=== PATIENT | female | born 1935 | race Caucasian/White ===

== ENCOUNTER 2017-08-16 02:10 | Inpatient (IN) ==
[2017-08-16 04:16] LABS: Basophils # (Auto) 0 K/mcL (0.0-0.3); Basophils % (Auto) 0.1 % (0.0-2.0); Eosinophils # (Auto) 0.4 K/mcL (0.0-0.7); Eosinophils % (Auto) 3.1 % (0.0-7.0); Granulocytes % (Auto) 87.6 % (38.0-78.0); Lymphocytes # (Auto) 0.9 K/mcL (1.5-4.8); Lymphocytes % (Auto) 6.7 % (15.5-49.0); Mean Cell Volume 88.3 fL (80.0-100.0); Mean Corpuscular HGB Conc 32.3 g/dL (31.0-36.0); Mean Corpuscular Hemoglobin 28.5 pg (26.0-34.0); Monocytes # (Auto) 0.3 K/mcL (0.1-0.9); Monocytes % (Auto) 2.5 % (1.0-12.0); Platelet Count 261 K/mcL (140-440); Red Cell Distribution Width 16.3 % (11.5-14.5)
--- NOTE | 2017-08-16 04:25 | Emergency Department Note ---
Altered Mental Status HPI - General Chief Complaint: Altered Mental Status Stated Complaint: Altered LOC Time Seen by Provider: 08/16/17 04:22 Mode of arrival: ambulatory - History of Present Illness HPI Narrative: This 81-year-old female comes in via emergency medical systems after they were summoned by patient's son, Andrés, who found that she was having difficulties being able to walk, some incoherent speech and difficulty speaking. These things seem to start around 7 or 8 PM. She could not get onto her scooter were normally she can drive around. He has been worried that she has taken extra or too much of oxycodone or tramadol. He reports that she often takes the maximum dose but is pretty careful with her medications. He helps set out her medications but does not control them. In route she was given Narcan with no specific response. REVIEW OF SYSTEMS: GENERAL: NO FEVERS. SHE OCCASIONALLY FEELS LIKE SHE IS COLD. NO SWEATS. CV: NO CHEST PAIN OR PALPITATIONS. PULMONARY: No shortness of breath. GI: No abdominal pain but does have some nausea before this started. : No dysuria. MSK: Has chronic long-term joint pains from osteoarthritis in her knees and her hips. Neuro: Headaches today. Has had some bitemporal headaches for which is being scheduled a CT of head (as outpatient previously arranged or planned). Psych: Has some anxiety but no depression. - Related Data Home Medications Medication Instructions Recorded Confirmed Bifidobacterium infantis 4 mg 4 mg PO QDAY cap 02/26/15 08/16/17 capsule acetaminophen 500 mg tablet See Dose Instructions PO BID PRN 02/26/15 03/27/15 tab allopurinol 100 mg tablet 100 mg PO QDAY tab 02/26/15 08/16/17 aspirin 325 mg tablet 325 mg PO QDAY tab 02/26/15 08/16/17 atorvastatin 20 mg tablet 20 mg PO QDAY tab 02/26/15 08/16/17 calcium carbonate 500 mg calcium See Dose Instructions PO QDAY 02/26/15 02/26/15 (1,250 mg) tablet cholecalciferol (vitamin D3) 2,000 2,000 unit PO QDAY tab 02/26/15 08/16/17 unit tablet cyanocobalamin (vit B-12) 2,500 2,500 mcg SUBLINGUAL QDAY tab 02/26/15 08/16/17 mcg sublingual tablet glucosamine 750 [id number] See Dose Instructions PO QDAY 02/26/15 no1 644 mg-C 30 mg-gema 1 mg tablet levothyroxine 100 mcg tablet 100 mcg PO QDAY tab 02/26/15 08/16/17 lisinopril 20 mg tablet 20 mg PO QDAY tab 02/26/15 08/16/17 magnesium See Dose Instructions PO QDAY 02/26/15 03/27/15 metformin 500 mg tablet 500 mg PO QDAY tab 02/26/15 08/16/17 nifedipine ER 60 mg 60 mg PO QDAY tab 02/26/15 08/16/17 tablet,extended release 24 hr omega-3 fatty acids-fish oil 684 See Dose Instructions PO QDAY 02/26/15 03/27/15 mg-1,200 mg capsule,delayed release oxycodone-acetaminophen 5 mg-325 See Dose Instructions PO Q4H tab 02/26/15 mg tablet timolol ophthalmic OPHTHALMIC QDAY 02/26/15 03/27/15 calcium carbonate 500 mg(1,250 2 tab PO .qd tab 03/27/15 08/16/17 mg)-vitamin D3 400 unit chewable tablet fexofenadine-pseudoephedrine ER 1 tab PO QAM tab 03/27/15 08/16/17 180 mg-240 mg tablet,ext.release 24 hr glucosamine-chondroitin 250 mg-200 1 tab-cap PO QDAY tab 03/27/15 08/16/17 mg tablet polyethylene glycol 3350 17 17 g PO QDAY each 03/27/15 08/16/17 gram/dose oral powder saliva substitute combo no.9 15 ml MUCOUS MEM TID-QID PRN ml 03/27/15 08/16/17 mouthwash Allergies Allergy/AdvReac Type Severity Reaction Status Date / Time ampicillin Allergy Unknown Unknown Verified 03/27/15 08:29 iodine Allergy Unknown Unknown Verified 03/27/15 08:29 levothyroxine sodium Allergy Unknown Unknown Verified 03/27/15 08:29 [From Synthroid] phenazopyridine Allergy Unknown Rash Verified 03/27/15 08:29 [From Pyridium] seasonal Allergy Unknown Unknown Uncoded 03/27/15 08:29 Past Medical History - Past Medical History PMFSH Narrative: From old chart note: Microalbuminuria (Chronic) Vitamin B 12 deficiency (Chronic) Pain in joint involving lower leg (Chronic) Overactive bladder (Chronic 10/07/13) Osteoporosis (Chronic) Osteoarthritis (Chronic) Obesity (Chronic) Hypothyroidism, acquired (Chronic) Hyperlipidemia (Chronic) Hypertensive chronic kidney disease (Chronic) Gout (Chronic) Goiter (Chronic) Glaucoma (Chronic) Dysmetabolic syndrome X (Chronic) Diabetes mellitus, type II (Chronic) Controlled diabetes mellitus with renal manifestations (Chronic) Degenerative joint disease (Chronic) Chronic kidney disease, stage III (moderate) (Chronic) Bladder spasm (Chronic) Bladder pain (Chronic) Basal cell carcinoma (Chronic) Arthritis (Chronic) Aortic aneurysm (Chronic) Medical history: Reports: arthritis (osteo-), hypertension, hypothyroidism, other (Chronic narcotics. Gout.) Psychiatric history: Reports: anxiety. Denies: depression - Social History smoking status: Former smoker Physical Exam Limitations: altered mental status General appearance: in no apparent distress, other (limited communications that can be understood. Strong efforts on her part for not being disturbed, wanting certain positions in bed, etc.) Head: atraumatic, normocephalic Eye: Present: PERRL, EOMI ENT: normal oropharynx, mucous membranes dry (mildly.) Neck: Present: trachea midline. Absent: lymphadenopathy, thyromegaly Respiratory: Present: normal lung sounds bilaterally. Absent: respiratory distress, wheezes, stridor, accessory muscle use, prolonged expiratory phase Cardiovascular: Present: regular rate, normal rhythm. Absent: systolic murmur, diastolic murmur Abdominal: Present: soft. Absent: distention, tenderness, guarding, rebound, rigidity, organomegaly, mass Extremities: Absent: pedal edema, pretibial edema, calf tenderness Neurological: Present: alert (when awakened but difficult to assess due to poor verbal interactive communication.) Psychiatric: Present: anxious Skin: Present: warm, dry Course Vital Signs Temperature 98.1 F 08/16/17 02:11 Pulse Rate 85 08/16/17 02:11 Respiratory Rate 18 08/16/17 02:11 Blood Pressure 195/89 08/16/17 02:11 Pulse Oximetry (%) 97 08/16/17 02:11 Temperature 98.1 F 08/16/17 02:11 Pulse Rate 73 08/16/17 06:40 Respiratory Rate 18 08/16/17 02:11 Blood Pressure 163/88 08/16/17 06:31 Pulse Oximetry (%) 89 L 08/16/17 06:40 Altered Mental Status - MDM Narrative Medical decision making narrative: 245 AM Speech does seem slurred and difficult to understand. CT scan of the head was done 3:[address] was negative. Labs pending. 5:30 AM Labs were unremarkable except similar CRF for age with Cr of 1.2. WBC elevated at 13.8 but crp and lactate normal. Sleeping peacefully. When awakened, remains unable to communicate well. 7:30 AM Her situation discussed with warehouse record clerk and hospitalist, who kindly agrees to accept this patient based on rather significant and severe status changes in her mental interaction, communication, capacity to help herself, ability to be mobile, etc. She will be admitted to telemetry observation. Chest x-ray had not previously been done and will be ordered. Blood cultures were not previously obtained and are not further entertained and that she did not have a febrile illness and her inflammation markers were normal. UA had not yet been obtained. Therefore urine screen of toxin/drugs of abuse is incomplete. We will give her some fluid. Pending transfer to floor under telemetry observation. - Lab Data Lab results reviewed: Yes I reviewed the patient's lab results. Result diagrams: 08/16/17 03:20 08/16/17 03:20 Lab Results 08/16/17 08/16/17 08/16/17 Range/Units 03:20 03:20 03:20 WBC 13.8 H (4.5-11.0) K/mcL RBC 4.60 (4.00-5.20) M/mcL Hgb 13.1 (12.0-15.0) g/dL Hct 40.6 (36.0-48.0) % MCV 88.3 (80.0-100.0) fL MCH 28.5 (26.0-34.0) pg MCHC 32.3 (31.0-36.0) g/dL RDW 16.3 H (11.5-14.5) % Plt Count 261 (140-440) K/mcL MPV 10.3 (7.4-10.4) fL Gran % 87.6 H (38.0-78.0) % Lymph % (Auto) 6.7 L (15.5-49.0) % [place] % (Auto) 2.5 (1.0-12.0) % Eos % (Auto) 3.1 (0.0-7.0) % Baso % (Auto) 0.1 (0.0-2.0) % Gran # 12.1 H (1.8-8.0) K/mcL Lymph # (Auto) 0.9 L (1.5-4.8) K/mcL [place] # (Auto) 0.3 (0.1-0.9) K/mcL Eos # (Auto) 0.4 (0.0-0.7) K/mcL Baso # (Auto) 0 (0.0-0.3) K/mcL VBG Lactic Acid (0.5-2.2) mmol/L Sodium 140 (133-145) mmol/L Potassium 4.0 (3.3-5.1) mmol/L Chloride 100 (96-108) mmol/L Carbon Dioxide 27 (22-30) mmol/L Anion Gap 13.0 (8-16) BUN 23 (8-23) mg/dl Creatinine 1.2 H (0.6-1.1) mg/dl GFR Calculation 42 Glucose 154 H (70-105) mg/dL Calcium 10.2 (8.6-10.4) mg/dl Total Bilirubin 0.3 (0.0-1.0) mg/dL AST 21 (0-37) U/l ALT 24 (0-40) U/l Alkaline Phosphatase 93 (39-117) U/L Troponin T < 0.01 (0-0.03) ng/ml C-Reactive Protein 0.8 (0.0-0.8) mg/dl Total Protein 8.0 (5.9-8.4) gm/dL Albumin 4.1 (3.2-5.2) gm/dL Globulin 3.9 H (2.2-3.7) gm/dL Albumin/Globulin Ratio 1.1 (1.0-2.3) 08/16/17 Range/Units 05:26 WBC (4.5-11.0) K/mcL RBC (4.00-5.20) M/mcL Hgb (12.0-15.0) g/dL Hct (36.0-48.0) % MCV (80.0-100.0) fL MCH (26.0-34.0) pg MCHC (31.0-36.0) g/dL RDW (11.5-14.5) % Plt Count (140-440) K/mcL MPV (7.4-10.4) fL Gran % (38.0-78.0) % Lymph % (Auto) (15.5-49.0) % [place] % (Auto) (1.0-12.0) % Eos % (Auto) (0.0-7.0) % Baso % (Auto) (0.0-2.0) % Gran # (1.8-8.0) K/mcL Lymph # (Auto) (1.5-4.8) K/mcL [place] # (Auto) (0.1-0.9) K/mcL Eos # (Auto) (0.0-0.7) K/mcL Baso # (Auto) (0.0-0.3) K/mcL VBG Lactic Acid 1.6 (0.5-2.2) mmol/L Sodium (133-145) mmol/L Potassium (3.3-5.1) mmol/L Chloride (96-108) mmol/L Carbon Dioxide (22-30) mmol/L Anion Gap (8-16) BUN (8-23) mg/dl Creatinine (0.6-1.1) mg/dl GFR Calculation Glucose (70-105) mg/dL Calcium (8.6-10.4) mg/dl Total Bilirubin (0.0-1.0) mg/dL AST (0-37) U/l ALT (0-40) U/l Alkaline Phosphatase (39-117) U/L Troponin T (0-0.03) ng/ml C-Reactive Protein (0.0-0.8) mg/dl Total Protein (5.9-8.4) gm/dL Albumin (3.2-5.2) gm/dL Globulin (2.2-3.7) gm/dL Albumin/Globulin Ratio (1.0-2.3) - Radiology Data Radiology results reviewed: Yes I reviewed the patient's radiology results. Disposition Pt seen by [facility]/PA only: No Clinical Impression: Garbled speech, Confusion, Incoordination, Weakness Altered mental status, unspecified Qualifiers: Altered mental status type: unspecified Qualified Code(s): R41.82 - Altered mental status, unspecified Leukocytosis (leucocytosis) Qualifiers: Leukocytosis type: leukemoid reaction Qualified Code(s): D72.823 - Leukemoid reaction CRF (chronic renal failure) Qualifiers: Chronic kidney disease stage: stage 3 (moderate) Qualified Code(s): N18.3 - Chronic kidney disease, stage 3 (moderate) Referrals: Sheyla Tabor MD [Primary Care Provider] -
[2017-08-16 04:36] LABS: ALT/SGPT 24 U/l (0-40); Albumin 4.1 gm/dL (3.2-5.2); Albumin/Globulin Ratio 1.1 (1.0-2.3); Alkaline Phosphatase 93 U/L (39-117); Blood Urea Nitrogen 23 mg/dl (8-23); C-Reactive Protein 0.8 mg/dl (0.0-0.8)
--- NOTE | 2017-08-16 05:12 | Cat Scan Report ---
CLINICAL INFORMATION: Dysarthria COMPARISON: 05/03/[address] TECHNIQUE: 2.5 mm helical slices were obtained in the skull base to vertex. Following reconstruction, axial reformatted images were reviewed at bone and parenchymal windows. The exam was performed using radiation dose optimization techniques including, but not limited to, automated exposure control, adjustment of the mA and/or kV according to patient size and use of iterative reconstruction technique. FINDINGS: The ventricles, sulci, fissures, and cisterns are symmetrically enlarged compatible with moderate age-related atrophy. This is unchanged. There is no subdural hemorrhage or other extra-axial fluid collection appreciated. Extensive chronic ischemic changes seen in the cerebral white matter are unchanged and age-related. No evidence of edema, mass effect, hemorrhage or other acute finding. Bone windows show no osseous abnormality IMPRESSION: Moderate atrophy and extensive chronic ischemic changes in the cerebral white matter compatible with age. No change from 05/03/2016.. Interpreted and Authenticated by: Fly Rivera 08/16/17
--- NOTE | 2017-08-16 08:34 | XRay Report ---
CLINICAL INFORMATION: Shortness of breath COMPARISON: None. FINDINGS: Film taken with portable technique, right rotation and suboptimal inspiration accentuates the cardiomediastinal silhouette. The heart is, at least, mildly enlarged. Pulmonary vessels are moderately distended and there is peribronchial vascular edema throughout both lungs. No infiltrates or effusions IMPRESSION: Moderate CHF Interpreted and Authenticated by: Fly Rivera 08/16/17
[2017-08-16 09:07] LABS: Amphetamine Screen,Urine NONE DETECTED (NONDETECTED); Benzodiazepines Screen,Urine NONE DETECTED (NONDETECTED); Cocaine Screen,Urine NONE DETECTED (NONDETECTED); Opiate Screen,Urine NONE DETECTED (NONDETECTED); Oxycodone, Urine Screen SUSPECT POSITIVE (NONDETECTED)
[2017-08-16 09:08] LABS: Appearance,Urine CLEAR; Bilirubin,Urine NEG (NEG); Color,Urine YELLOW; Glucose,Urine (UA) NEGATIVE (NEG); Leukocyte Esterase,Urine NEG /uL (NEG); Protein,Urine >=500 mg/dL (NEG); Specific Gravity,Urine 1.014 (1.000-1.035); Urine Blood NEG mg/dL (<0.03); Urobilinogen,Urine NEG (NEG)
[2017-08-16 09:19] LABS: Bacteria,Urine 0 /hpf (0); Urine Amorphous Crystals FEW /hpf (0); Urine Hyaline Cast < 1 /lpf (0-2); Urine RBC 4 /hpf (0-1); Urine Squamous Epithelial Cell 2 /hpf (0-4); Urine WBC 2 /hpf (0-4)
--- NOTE | 2017-08-16 10:14 | Internal Med History&Physical ---
Medical - H&P: HPI Patient information: Note initiated : 08/16/17 at 10:10 am Service Date, if different from initiated Date: [] Patient: Amada Herron 81 y/o F admitted on for Altered LOC. Chief Complaint: Altered mental status History of present illness: The patient's 84-year-old female with a history of osteoarthritis, hypothyroidism, type 2 diabetes mellitus, hypertension who presents today from home via EMS with changes in mental status. History is obtained in speaking with Dr. Machado from the emergency department, and reviewing old medical records.. The patient's unable to provide any history. Apparently at baseline the patient is mostly nonambulatory, it appears due to osteoarthritis and morbid obesity, but is able to transfer into a power scooter , and functions well at home where she lives with her son who is a caregiver. Proximally 7:00-8:00 PM last night, her son noted that her speech became incoherent, she was babbling, having difficulty speaking and with garbled words at time. It is unclear if this was a word finding problem or an articulation problem. She also became much more weak, was unable to transfer to her scooter. Her son was concerned that she may have consumed extra dose of her opioid pain medication. He continued to monitor her. She did not improve, she presents to the emergency department early this morning via EMS for altered mental status. When she arrived she is a lethargic , initially poorly responsive. She received Narcan en route via EMS with no significant change. She was able to wake time and interactive with questions, at other times not so much, with a waxing and waning attention in mental status. She spent most of the overnight in the ED sleeping. She would arouse and respond somewhat, but was not back to her usual status. Laboratory evaluation was notable for white count of 13.8. She has stable renal function and creatinine 1.2 (CKD stage III). Chest x-ray showed evidence of volume overload/congestive heart failure. Urinalysis with proteinuria and ketonuria but no evidence of urinary tract infection. Head CT was with chronic white matter changes, nothing acute. I was contacted to hospitalize the patient for further evaluation. During my examination, the patient felt warm, sound to have a temperature of 100.8, having been normal actually one hour previously. Patient is being hospitalized for further evaluation of encephalopathy, suspected occult infection.she is attempting to reply at times, but does not appear to track with conversations. She does not meaningfully follow commands. ROS unobtainable: due to mental status Medical - H&P: PMH Medical history: Chronic kidney disease, stage III (moderate) Microalbuminuria Hypothyroidism, acquired Hyperlipidemia Hypertension Diabetes mellitus, type II Vitamin B 12 deficiency Overactive bladder Osteoporosis Osteoarthritis Obesity Gout Goiter Glaucoma Dysmetabolic syndrome X Basal cell carcinoma Aortic aneurysm Surgical history: History of tonsillectomy History of thyroidectomy History of skin cancer History of hysterectomy History of cholecystectomy History of abdominal surgery Pertinent family history: Father: Alcohol abuse Brother: Alcohol abuse Brother: Chronic Kidney Disease Mother: Essential hypertension, Malignant Melanoma of Skin, Osteoarthritis Social history: The patient lives with her son. Apparently does not smoke. Unknown whether she consumes alcohol regularly. Medical - H&P: Meds Home Medications Medication Instructions Recorded Confirmed Type acetaminophen 500 mg tablet See Dose Instructions PO BID PRN 02/26/15 03/27/15 History tab allopurinol 100 mg tablet 100 mg PO QDAY tab 02/26/15 08/16/17 History aspirin 325 mg tablet 325 mg PO QDAY tab 02/26/15 08/16/17 History calcium carbonate 500 mg calcium See Dose Instructions PO QDAY 02/26/15 History (1,250 mg) tablet cholecalciferol (vitamin D3) 2,000 2,000 unit PO QDAY tab 02/26/15 08/16/17 History unit tablet cyanocobalamin (vit B-12) 2,500 2,500 mcg SUBLINGUAL QDAY tab 02/26/15 History mcg sublingual tablet levothyroxine 100 mcg tablet 100 mcg PO QDAY tab 02/26/15 08/16/17 History lisinopril 20 mg tablet 20 mg PO QDAY tab 02/26/15 08/16/17 History metformin 500 mg tablet 500 mg PO QDAY tab 02/26/15 08/16/17 History nifedipine ER 60 mg 60 mg PO QDAY tab 02/26/15 08/16/17 History tablet,extended release 24 hr omega-3 fatty acids-fish oil 684 See Dose Instructions PO QDAY 02/26/15 History mg-1,200 mg capsule,delayed release oxycodone-acetaminophen 5 mg-325 See Dose Instructions PO Q4H tab 02/26/15 History mg tablet polyethylene glycol 3350 17 17 g PO QDAY each 03/27/15 08/16/17 History gram/dose oral powder Sertraline HCl [Zoloft] 50 mg PO DAILY 08/16/17 08/16/17 History traMADol HCL [Ultram] 50 - 100 mg PO Q4H 08/16/17 08/16/17 History Allergies Allergy/AdvReac Type Severity Reaction Status Date / Time ampicillin Allergy Unknown Unknown Verified 03/27/15 08:29 iodine Allergy Unknown Unknown Verified 03/27/15 08:29 levothyroxine sodium Allergy Unknown Unknown Verified 03/27/15 08:29 [From Synthroid] phenazopyridine Allergy Unknown Rash Verified 03/27/15 08: [From Pyridium] seasonal Allergy Unknown Unknown Uncoded 03/27/15 08:29 Medical - H&P: Exam - Constitutional Vitals: Temp Pulse Resp BP Pulse Ox 100.8 F H 80 18 193/71 89 L 08/16/17 09:30 08/16/17 07:47 08/16/17 02:11 08/16/17 09:01 08/16/17 07:47 Exam: General: Ill appearing, laying in a gurney, inattentive to the environment or interviewer HEENT: Normocephalic. Resists opening eyes for pupil exam. Sclera have no icterus. Conjunctiva appear clear. Oropharyngeal exam difficult, patient does not wish to open her mouth, dry mucous membranes are noted. No obvious lesions. Neck: Supple, no inches meds. Thyroid not palpable. Chest: Rales on the right greater than left base (lying on her side, right is dependent). Respirations are unlabored. Cardiovascular: Regular rate and rhythm with a 2/6 systolic murmur in the precordium. Carotid pulses are 2+ bilaterally, bruits are not appreciated. 2+ lower extremity edema. JVP cannot be assessed due to body habitus. Abdomen: Obese, soft, does not appear tender, though patient at times attempts to push hand away. Bowel sounds are present. Hepatosplenomegaly cannot be assessed due to body habitus. Lymphatic: No cervical or supraclavicular lymphadenopathy appreciated. Skin: Skin is warm, no erythema. Chronic stasis changes in the ankles and feet. Skin turgor is decreased. Her left musculoskeletal: No noted joint erythema or tenderness. Digits are without cyanosis or clubbing. Neurologic: Patient is somnolent, attempts to open eyes, does not track, does not follow commands. Face is symmetric. Remainder of cranial nerve exam cannot be performed due to cooperation. Unable to assess strength. Tone is normal. DTR 1+ at the biceps and patella. No clonus. Psychiatric: Affect, orientation, insight cannot be tested. Medical - H&P: Reslt - Labs CBC & Chem 7: 08/16/17 03:20 08/16/17 03:20 Labs: Short CBC 08/16/17 Range/Units 03:20 WBC 13.8 H (4.5-11.0) K/mcL Hgb 13.1 (12.0-15.0) g/dL Hct 40.6 (36.0-48.0) % Plt Count 261 (140-440) K/mcL BMP 08/16/17 03:20 Sodium 140 Potassium 4.0 Chloride 100 Carbon Dioxide 27 BUN 23 Creatinine 1.2 H Glucose 154 H Calcium 10.2 Cardiac Enzymes 08/16/17 Range/Units 03:20 Troponin T < 0.01 (0-0.03) ng/ml Liver Function 08/16/17 Range/Units 03:20 Total Bilirubin 0.3 (0.0-1.0) mg/dL AST 21 (0-37) U/l ALT 24 (0-40) U/l Alkaline Phosphatase 93 (39-117) U/L Albumin 4.1 (3.2-5.2) gm/dL Urine 08/16/17 Range/Units 08:31 Urine Color Yellow Urine Appearance Clear Urine pH 8.0 (5.0-9.0) Ur Specific [place] 1.014 (1.000-1.035) Urine Protein >=500 A (NEG) mg/dL Urine Glucose (UA) Negative (NEG) mg/dL - EKG Data -: EKG Reviewed by Myself (rate of 76, no acute injury pattern) EKG shows normal: sinus rhythm, ST-T waves - Imaging and Cardiology Chest x-ray Status: image reviewed by me (IMPRESSION: Moderate CHF) Medical - H&P: A/P (1) Encephalopathy acute Current visit: Yes Status: Acute (2) CRF (chronic renal failure) Current visit: Yes Status: Chronic (3) Leukocytosis (leucocytosis) Current visit: Yes Status: Acute (4) Hypothyroidism, acquired Current visit: No Status: Chronic - Narrative A/P Narrative: 81-year-old female with fairly abrupt change in mental status, now developing fever in the hospital. Acute encephalopathy. Suspect in part secondary to occult infection. Starting to develop fever during evaluation in the emergency department. Also has mild leukocytosis. Chest x-ray without evidence of pneumonia, though some congestive failure. Urinalysis unremarkable. Differential diagnosis includes viral illness, including influenza, occult bloodstream infection. Lactate is normal, hemodynamics stable, no evidence of sepsis. Patient was having speech problems, particularly with the onset of her symptoms, otherwise no focal neurologic findings and her CT was negative. Suspect this may be in part due to encephalopathy and does not represent a TIA/stroke syndrome. Plan: 1. Observation hospitalization on telemetry 2. Blood cultures 3. Check pro calcitonin 4. Influenza swab 5. Check TSH and B12 given history of hypothyroidism and B12 deficiency 6. Neuro checks, follow exam. Leukocytosis. Concern for occult infection given development of low-grade fever. No evidence of pulmonary urinary infection. Further workup as noted above. Plan: As above. Type 2 diabetes mellitus. On metformin at home. Given acute illness, we'll hold metformin Plan: Hold metformin, slight scale insulin, Accu-Cheks, diabetic diet. Osteoarthritis with chronic opioid use for pain control. No change in mental status with Narcan, suggests encephalopathy is not related to opioids. Plan: Hold opioids while mental status is altered/encephalopathic. Chronic kidney disease, stage III. Baseline creatinine 1.1, stable at 1.2. History of microalbuminuria in 2014, now with occult proteinuria. Plan: Continue with lisinopril, renal dose medications as needed, monitor renal function. Acquired hypothyroidism with history of thyroidectomy. On levothyroxine replacement at home. Plan: Continue levothyroxine, check TSH. Prophylaxis: Lovenox CODE STATUS: We'll need to read discuss with family, for now is full code absence of other directive.
[2017-08-16] MEDS ORDERED: 0.9 % SODIUM CHLORIDE 1,000 ML IV SCH ×2 (10:39→13:15)
[2017-08-16] MEDS ORDERED: NALOXONE HCL 0.4 MG/ML VIAL IV PRN (10:39)
[2017-08-16] MEDS ORDERED: DEXTROSE 50% 50 ML VIAL IV PRN (10:48)
[2017-08-16] MEDS ORDERED: DEXTROSE 31 GM ORAL.SUSP PO PRN (10:48)
[2017-08-16] MEDS: INSULIN LISPRO 1 UNIT/0.01 ML UNIT SQ SCH ×3 (11:20→21:23)
[2017-08-16 12:14] LABS: Vitamin B12 1415 pg/ml (232-1245)
[2017-08-16] MEDS: cefTRIAXone 1 GM VIAL IV SCH (15:06)
[2017-08-16] MEDS: ACETAMINOPHEN 650 MG/65 ML BOTTLE IV PRN (15:07)
[2017-08-16] MEDS: 0.9 % SODIUM CHLORIDE 1,000 ML IV SCH ×2 (16:20→23:58)
[2017-08-16] MEDS: ONDANSETRON 4 MG/2 ML VIAL IV PRN (23:57)
[2017-08-17] MEDS: ACETAMINOPHEN 650 MG/65 ML BOTTLE IV PRN (00:16)
[2017-08-17 05:31] LABS: Basophils # (Auto) 0 K/mcL (0.0-0.3); Basophils % (Auto) 0.3 % (0.0-2.0); Eosinophils # (Auto) 0.2 K/mcL (0.0-0.7); Eosinophils % (Auto) 1.6 % (0.0-7.0); Granulocytes % (Auto) 75.4 % (38.0-78.0); Lymphocytes # (Auto) 2.2 K/mcL (1.5-4.8); Lymphocytes % (Auto) 18.4 % (15.5-49.0); Mean Cell Volume 90.1 fL (80.0-100.0); Mean Corpuscular HGB Conc 33.3 g/dL (31.0-36.0); Monocytes # (Auto) 0.5 K/mcL (0.1-0.9); Monocytes % (Auto) 4.3 % (1.0-12.0); Platelet Count 199 K/mcL (140-440); RBC 3.71 M/mcL (4.00-5.20)
[2017-08-17 05:58] LABS: Blood Urea Nitrogen 20 mg/dl (8-23)
[2017-08-17] MEDS: ONDANSETRON 4 MG/2 ML VIAL IV PRN ×3 (08:21→18:01)
[2017-08-17] MEDS: 0.9 % SODIUM CHLORIDE 1,000 ML IV SCH ×4 (09:54→22:37)
[2017-08-17] MEDS: ENOXAPARIN 40 MG/0.4 ML SYRINGE SQ SCH (10:19)
[2017-08-17] MEDS: ASPIRIN 325 MG ENTERIC COATED TABLET PO SCH (10:19)
[2017-08-17] MEDS: ALLOPURINOL 100 MG TABLET PO SCH (10:19)
[2017-08-17] MEDS: LISINOPRIL 20 MG TABLET PO SCH (10:19)
[2017-08-17] MEDS: CYANOCOBALAMIN (VITAMIN B-12) 500 MCG TABLET PO SCH (10:19)
[2017-08-17] MEDS: cefTRIAXone 1 GM VIAL IV SCH (10:19)
[2017-08-17] MEDS: SERTRALINE 50 MG TABLET PO SCH (10:19)
[2017-08-17] MEDS: NIFEdipine 30 MG TAB.XL.24H PO SCH (10:19)
[2017-08-17] MEDS: LEVOTHYROXINE 100 MCG TABLET PO SCH (10:20)
[2017-08-17] MEDS: INSULIN LISPRO 1 UNIT/0.01 ML UNIT SQ SCH ×4 (10:22→20:43)
--- NOTE | 2017-08-17 11:20 | Internal Med Progress Note ---
Medical - PN: Subj Patient information: Note initiated : 08/17/17 at 11:17 am Service Date, if different from initiated Date: [] Patient: Amada Herron 81 y/o F admitted on 08/17/17 for Altered LOC. Chief Complaint: f/u fever, encephalopathy Interval history: Aug 16 The patient's 84-year-old female with a history of osteoarthritis, hypothyroidism, type 2 diabetes mellitus, hypertension who presents today from home via EMS with changes in mental status. History is obtained in speaking with Dr. Machado from the emergency department, and reviewing old medical records.. The patient's unable to provide any history. Apparently at baseline the patient is mostly nonambulatory, it appears due to osteoarthritis and morbid obesity, but is able to transfer into a power scooter , and functions well at home where she lives with her son who is a caregiver. Proximally 7:00-8:00 PM last night, her son noted that her speech became incoherent, she was babbling, having difficulty speaking and with garbled words at time. It is unclear if this was a word finding problem or an articulation problem. She also became much more weak, was unable to transfer to her scooter. Her son was concerned that she may have consumed extra dose of her opioid pain medication. He continued to monitor her. She did not improve, she presents to the emergency department early this morning via EMS for altered mental status. When she arrived she is a lethargic , initially poorly responsive. She received Narcan en route via EMS with no significant change. She was able to wake time and interactive with questions, at other times not so much, with a waxing and waning attention in mental status. She spent most of the overnight in the ED sleeping. She would arouse and respond somewhat, but was not back to her usual status. Laboratory evaluation was notable for white count of 13.8. She has stable renal function and creatinine 1.2 (CKD stage III). Chest x-ray showed evidence of volume overload/congestive heart failure. Urinalysis with proteinuria and ketonuria but no evidence of urinary tract infection. Head CT was with chronic white matter changes, nothing acute. I was contacted to hospitalize the patient for further evaluation. During my examination, the patient felt warm, sound to have a temperature of 100.8, having been normal actually one hour previously. Patient is being hospitalized for further evaluation of encephalopathy, suspected occult infection.she is attempting to reply at times, but does not appear to track with conversations. She does not meaningfully follow commands. Aug 17 During the day yesterday, the patient became progressively more arousable. He was able to assist in some care. Was able to give a few responses. She recently had a oxycodone prescription filled, the bottle was empty. This was brought in by family. Now looking like she may have had opioid toxicity, even though she did not initially respond to Narcan. However also febrile 102.5 upon arrival on the floor yesterday. Ceftriaxone was started. Fevers of tapered off. Cultures are negative to date. Patient appeared quite dehydrated as well, though mild CHF reported on chest x-ray. Responded to IV fluids. This morning seems to be in no distress. However did have abrupt decline in pulse from 80s to 40s and occasionally into the 30s with a sinus bradycardia. EKG shows no injury pattern, does show bradycardia. Pulse picked up in the 50s when aroused. Patient denies any complaints, though unclear if she is fully tracking with questions still. - Constitutional Vitals: Vital Signs Temp Pulse Resp BP Pulse Ox 99.8 F H 65 18 152/78 99 08/17/17 04:08 08/17/17 04:08 08/17/17 04:08 08/17/17 04:08 08/17/17 04:08 Period Temp Pulse Resp BP Sys/King Pulse Ox Last 24 Hr 99.5 F-101.7 F 56-68 18-24 134-173/74-104 90-99 Intake and Output 08/16/17 08/17/17 08/17/17 21:59 05:59 13:59 Intake Total 349 / 349 1050 / 1050 992 / 992 Output Total 775 / 775 525 / 525 Balance -426 / -426 525 / 525 992 / 992 Weight 236 lb Intake & Output: Intake & Output 08/16/17 08/17/17 08/17/17 21:59 05:59 13:59 Intake Total 349 / 349 1050 / 1050 992 / 992 Output Total 775 / 775 525 / 525 Balance -426 / -426 525 / 525 992 / 992 Weight 236 lb Intake: IV 349 / 349 1000 / 1000 992 / 992 Sodium Chloride 0.9% 1,000 ml @ 1000 / 1000 992 / 992 125 mls/hr IV .Q8H [facility] Rx#: [id number] Oral 50 / 50 Output: Urine Catheter Amount 775 / 775 525 / 525 Other: Stool Size Large Stool Color Brown Stool Consistency Formed # Bowel Movements 1 Medical - PN: Obj Da - Labs CBC & Chem 7: 08/17/17 04:05 08/17/17 04:05 Labs: Abnormal Lab Results 08/17/17 08/16/17 08/16/17 04:05 11:02 08:31 WBC 11.7 H RBC 3.71 L Hgb 11.1 L Hct 33.5 L RDW 16.0 H Gran % Lymph % (Auto) Gran # 8.8 H Lymph # (Auto) Creatinine Glucose Globulin Vitamin B12 1415 H Urine Protein >=500 A Urine Ketones 5/tr A Urine RBC 4 H Amorphous Crystals Few A Ur Oxycodone Screen 08/16/17 08/16/17 08/16/17 08:31 03:20 03:20 WBC 13.8 H RBC Hgb Hct RDW 16.3 H Gran % 87.6 H Lymph % (Auto) 6.7 L Gran # 12.1 H Lymph # (Auto) 0.9 L Creatinine 1.2 H Glucose 154 H Globulin 3.9 H Vitamin B12 Urine Protein Urine Ketones Urine RBC Amorphous Crystals Ur Oxycodone Screen Suspect positive A Microbiology 08/16/17 11:36 MRSA (PCR) - Final Nose Meds: Medications Acetaminophen (Tylenol) 650 mg PO Q6HP PRN PRN Reason: PAIN/FEVER > 101 Allopurinol (Zyloprim) 100 mg PO QDAY [facility] Last Admin: 08/17/17 10:19 Dose: 100 mg Aspirin (Ecotrin) 325 mg PO DAILY [facility] Last Admin: 08/17/17 10:19 Dose: 325 mg Ceftriaxone Sodium (Rocephin) 1 gm IV DAILY [facility] Last Admin: 08/17/17 10:19 Dose: 1 gm Cyanocobalamin (Vitamin B-12) 2,500 mcg PO DAILY [facility] Last Admin: 08/17/17 10:19 Dose: 2,500 mcg Dextrose (Dextrose 50%) 0 ml IV UD PRN PRN Reason: Hypoglycemia Diagnostic Test (Pha) (Accu-Chek) 1 each FS ACHS [facility] Last Admin: 08/17/17 10:22 Dose: 1 each Enoxaparin Sodium (Lovenox) 40 mg SQ DAILY [facility] Last Admin: 08/17/17 10:19 Dose: 40 mg Glucose (Insta-Glucose) 15 gm PO PRN PRN PRN Reason: Hypoglycemia Acetaminophen (Ofirmev) 650 mg in 65 mls @ 130 mls/hr IV Q6HP PRN PRN Reason: PAIN/FEVER > 101 Last Admin: 08/17/17 00:16 Dose: 130 mls/hr Sodium Chloride (Sodium Chloride 0.9%) 1,000 mls @ 125 mls/hr IV .Q8H [facility] Last Admin: 08/17/17 09:54 Dose: 100 mls/hr Insulin Human Lispro (Humalog) 0 unit SQ [facility] PRN Reason: Protocol Last Admin: 08/17/17 10:22 Dose: Not Given Levothyroxine Sodium (Synthroid) 100 mcg PO ACB [facility] Last Admin: 08/17/17 10:20 Dose: 100 mcg Lisinopril (Zestril) 20 mg PO QDAY [facility] Last Admin: 08/17/17 10:19 Dose: 20 mg Naloxone HCl (Narcan) 0.1 mg IV Q2MIN PRN PRN Reason: Opiate Reversal Nifedipine (Procardia Xl) 60 mg PO DAILY [facility] Last Admin: 08/17/17 10:19 Dose: 60 mg Ondansetron HCl (Zofran) 4 mg IV Q4HP PRN PRN Reason: Nausea And Vomiting Last Admin: 08/17/17 08:21 Dose: 4 mg Sertraline HCl (Zoloft) 50 mg PO DAILY [facility] Last Admin: 08/17/17 10:19 Dose: 50 mg Medical - PN: A/P - Time Spent With Patient Total time spent is greater than 50% in coordination of care (as documented) at patient's floor/unit and/or counseling patient: Greater than 35 minutes (1) Encephalopathy acute Status: Acute Current Visit: Yes (2) CRF (chronic renal failure) Status: Chronic Current Visit: Yes (3) Leukocytosis (leucocytosis) Status: Acute Current Visit: Yes (4) Hypothyroidism, acquired Status: Chronic Current Visit: No - Narrative A/P Narrative: 81-year-old female with fairly abrupt change in mental status, now developing fever in the hospital. Acute encephalopathy. Now suspect probably combination of opioid toxicity given empty pill bottle that was recently filled. However also with fever and occult infection, possible aspiration given her obtundation. Improving with time and hydration. Remains on antibiotics, cultures remain negative. Influenza negative, pro calcitonin negative, reassuring that this is not occult sepsis, though suspicion for infection remains high Plan: Inpatient status given encephalopathy, possible overdose, occult infection. Follow-up cultures. Continue with ceftriaxone. Continue with hydration and follow exam. We'll recheck chest x-ray now the patient's been hydrated see if there's been any interval development of infiltrate. Leukocytosis. Improving with hydration and antibiotics. Plan: As above. Bradycardia. Wonder if she has been having episodes of bradycardia at home, that may have contributed to her presentation. She did maintain adequate blood pressure with the low heart rate however. Plan: Continue to monitor on telemetry. Type 2 diabetes mellitus. On metformin at home. Given acute illness, we'll hold metformin Plan: Hold metformin, slight scale insulin, Accu-Cheks, diabetic diet. Osteoarthritis with chronic opioid use for pain control. Plan: Hold opioids while mental status is altered/encephalopathic. Chronic kidney disease, stage III. Baseline creatinine 1.1, stable at 1.2. History of microalbuminuria in 2015, now with occult proteinuria. Plan: Continue with lisinopril, renal dose medications as needed, monitor renal function. Acquired hypothyroidism with history of thyroidectomy. On levothyroxine replacement at home. Plan: TSH mildly elevated, will increase levothyroxine. Medical - PN: Qual - VTE Deep Vein Thrombosis/Pulmonary Embolism Present on Admission: No
[2017-08-18] MEDS: 0.9 % SODIUM CHLORIDE 1,000 ML IV SCH ×5 (01:03→22:41)
[2017-08-18 06:53] LABS: Basophils # (Auto) 0 K/mcL (0.0-0.3); Basophils % (Auto) 0.3 % (0.0-2.0); Eosinophils # (Auto) 0.2 K/mcL (0.0-0.7); Eosinophils % (Auto) 1.7 % (0.0-7.0); Granulocytes % (Auto) 75.5 % (38.0-78.0); Lymphocytes # (Auto) 2.3 K/mcL (1.5-4.8); Lymphocytes % (Auto) 16.3 % (15.5-49.0); Mean Cell Volume 90.6 fL (80.0-100.0); Mean Corpuscular HGB Conc 33.4 g/dL (31.0-36.0); Mean Corpuscular Hemoglobin 30.2 pg (26.0-34.0); Monocytes # (Auto) 0.9 K/mcL (0.1-0.9); Monocytes % (Auto) 6.2 % (1.0-12.0); Platelet Count 196 K/mcL (140-440); RBC 4.07 M/mcL (4.00-5.20); Red Cell Distribution Width 15.9 % (11.5-14.5)
[2017-08-18 07:27] LABS: Blood Urea Nitrogen 20 mg/dl (8-23)
[2017-08-18] MEDS: INSULIN LISPRO 1 UNIT/0.01 ML UNIT SQ SCH ×4 (09:02→21:56)
[2017-08-18] MEDS: ONDANSETRON 4 MG/2 ML VIAL IV PRN (09:07)
[2017-08-18] MEDS: ENOXAPARIN 40 MG/0.4 ML SYRINGE SQ SCH (09:53)
[2017-08-18] MEDS: cefTRIAXone 1 GM VIAL IV SCH (09:53)
[2017-08-18] MEDS: SERTRALINE 50 MG TABLET PO SCH (09:54)
[2017-08-18] MEDS: ASPIRIN 325 MG ENTERIC COATED TABLET PO SCH (09:54)
[2017-08-18] MEDS: ALLOPURINOL 100 MG TABLET PO SCH (09:54)
[2017-08-18] MEDS: LISINOPRIL 20 MG TABLET PO SCH (09:54)
[2017-08-18] MEDS: CYANOCOBALAMIN (VITAMIN B-12) 500 MCG TABLET PO SCH (09:54)
[2017-08-18] MEDS: NIFEdipine 30 MG TAB.XL.24H PO SCH ×2 (09:54→21:56)
[2017-08-18] MEDS: LEVOTHYROXINE 100 MCG TABLET PO SCH (09:54)
--- NOTE | 2017-08-18 16:16 | Cat Scan Report ---
CLINICAL INFORMATION: Altered mental status evaluate for ischemia COMPARISON: None. TECHNIQUE: 2.5 mm helical slices were obtained in the skull base to vertex. Following reconstruction, axial reformatted images were reviewed at bone and parenchymal windows. The exam was performed using radiation dose optimization techniques including, but not limited to, automated exposure control, adjustment of the mA and/or kV according to patient size and use of iterative reconstruction technique. FINDINGS: The ventricles, sulci, fissures, and cisterns are symmetrically enlarged compatible with moderate age-related atrophy. This is unchanged. There is no subdural hemorrhage or other extra-axial fluid collection appreciated. Extensive chronic ischemic changes seen in the cerebral white matter are unchanged and age-related. No evidence of edema, mass effect, hemorrhage or other acute finding. Bone windows show no osseous abnormality IMPRESSION: Moderate atrophy and extensive chronic ischemic changes in the cerebral white matter compatible with age. No change from 08/16/2017 and 05/03/2016 Interpreted and Authenticated by: Fly Rivera 08/18/17
--- NOTE | 2017-08-18 16:50 | Internal Med Progress Note ---
Medical - PN: Subj Patient information: Note initiated : 08/18/17 at 4:36 pm Service Date, if different from initiated Date: [] Patient: Amada Herron 81 y/o F admitted on 08/17/17 for Altered LOC. Chief Complaint: f/u encephalopathy Interval history: Aug 16 The patient's 84-year-old female with a history of osteoarthritis, hypothyroidism, type 2 diabetes mellitus, hypertension who presents today from home via EMS with changes in mental status. History is obtained in speaking with Dr. Machado from the emergency department, and reviewing old medical records.. The patient's unable to provide any history. Apparently at baseline the patient is mostly nonambulatory, it appears due to osteoarthritis and morbid obesity, but is able to transfer into a power scooter , and functions well at home where she lives with her son who is a caregiver. Proximally 7:00-8:00 PM last night, her son noted that her speech became incoherent, she was babbling, having difficulty speaking and with garbled words at time. It is unclear if this was a word finding problem or an articulation problem. She also became much more weak, was unable to transfer to her scooter. Her son was concerned that she may have consumed extra dose of her opioid pain medication. He continued to monitor her. She did not improve, she presents to the emergency department early this morning via EMS for altered mental status. When she arrived she is a lethargic , initially poorly responsive. She received Narcan en route via EMS with no significant change. She was able to wake time and interactive with questions, at other times not so much, with a waxing and waning attention in mental status. She spent most of the overnight in the ED sleeping. She would arouse and respond somewhat, but was not back to her usual status. Laboratory evaluation was notable for white count of 13.8. She has stable renal function and creatinine 1.2 (CKD stage III). Chest x-ray showed evidence of volume overload/congestive heart failure. Urinalysis with proteinuria and ketonuria but no evidence of urinary tract infection. Head CT was with chronic white matter changes, nothing acute. I was contacted to hospitalize the patient for further evaluation. During my examination, the patient felt warm, sound to have a temperature of 100.8, having been normal actually one hour previously. Patient is being hospitalized for further evaluation of encephalopathy, suspected occult infection.she is attempting to reply at times, but does not appear to track with conversations. She does not meaningfully follow commands. Aug 17 During the day yesterday, the patient became progressively more arousable. He was able to assist in some care. Was able to give a few responses. She recently had a oxycodone prescription filled, the bottle was empty. This was brought in by family. Now looking like she may have had opioid toxicity, even though she did not initially respond to Narcan. However also febrile 102.5 upon arrival on the floor yesterday. Ceftriaxone was started. Fevers of tapered off. Cultures are negative to date. Patient appeared quite dehydrated as well, though mild CHF reported on chest x-ray. Responded to IV fluids. This morning seems to be in no distress. However did have abrupt decline in pulse from 80s to 40s and occasionally into the 30s with a sinus bradycardia. EKG shows no injury pattern, does show bradycardia. Pulse picked up in the 50s when aroused. Patient denies any complaints, though unclear if she is fully tracking with questions still. Aug 18 Alerts early this afternoon. Able to carry on fairly good conversation, though tends to perseverate a bit on what her son has not been in contact (he's been in contact with case management) and unclear as to why she went up in the hospital. She stated she may have taken extra pain medications on occasion in the past, though tries to be careful with that. She was not sure why her pill bottle filled last week with 30 tablets would be empty. No fever, chills. She had nausea yesterday, seems to be resolved. No dyspnea. Good urine output. - Constitutional Vitals: Vital Signs Temp Pulse Resp BP Pulse Ox 98.2 F 65 18 166/85 99 08/18/17 16:00 08/18/17 08:00 08/18/17 16:00 08/18/17 16:00 08/18/17 16:00 Period Temp Pulse Resp BP Sys/King Pulse Ox Last 24 Hr 97.8 F-99.1 F 59-65 16-20 150-182/61-90 91-100 Intake and Output 08/18/17 08/18/17 08/18/17 05:59 13:59 21:59 Intake Total 1001 / 1001 1000 / 1000 Output Total 850 / 850 Balance 151 / 151 1000 / 1000 Weight 239 lb 1 oz Patient Weight 08/19/17 05:59 Weight 239 lb 1 oz Intake & Output: Intake & Output 08/18/17 08/18/17 08/18/17 05:59 13:59 21:59 Intake Total 1001 / 1001 1000 / 1000 Output Total 850 / 850 Balance 151 / 151 1000 / 1000 Weight 239 lb 1 oz Intake: IV 881 / 881 1000 / 1000 Sodium Chloride 0.9% 1,000 ml @ 881 / 881 1000 / 1000 125 mls/hr IV .Q8H [facility] Rx#: [id number] Oral 120 / 120 Output: Urine Catheter Amount 850 / 850 Other: Stool Size Moderate Small Stool Color Brown Brown Stool Consistency Liquid Loose # Bowel Movements 1 # of times incontinent of 1 1 Bowels Exam: General: Sitting up in chair, awake, alert Chest: Clear, no rales, no wheezes Cardio vascular: Regular with murmur, no edema Abdomen: Obese, soft, nontender Neuro: Alert, oriented to person, no she's a [facility], briskly reads the date off the board on the wall when asked what day it is. However conversation tends tend to meander at times with some mild tangential thoughts. Medical - PN: Obj Da - Labs CBC & Chem 7: 08/18/17 04:34 08/18/17 04:24 Labs: Abnormal Lab Results 08/18/17 08/17/17 08/16/17 04:34 04:05 11:02 WBC 13.8 H 11.7 H RBC 3.71 L Hgb 11.1 L Hct 33.5 L RDW 15.9 H 16.0 H Gran % Lymph % (Auto) Gran # 10.4 H 8.8 H Lymph # (Auto) Creatinine Glucose Globulin Vitamin B12 1415 H Urine Protein Urine Ketones Urine RBC Amorphous Crystals Ur Oxycodone Screen 08/16/17 08/16/17 08/16/17 08:31 08:31 03:20 WBC RBC Hgb Hct RDW Gran % Lymph % (Auto) Gran # Lymph # (Auto) Creatinine 1.2 H Glucose 154 H Globulin 3.9 H Vitamin B12 Urine Protein >=500 A Urine Ketones 5/tr A Urine RBC 4 H Amorphous Crystals Few A Ur Oxycodone Screen Suspect positive A 08/16/17 03:20 WBC 13.8 H RBC Hgb Hct RDW 16.3 H Gran % 87.6 H Lymph % (Auto) 6.7 L Gran # 12.1 H Lymph # (Auto) 0.9 L Creatinine Glucose Globulin Vitamin B12 Urine Protein Urine Ketones Urine RBC Amorphous Crystals Ur Oxycodone Screen Meds: Medications Acetaminophen (Tylenol) 650 mg PO Q6HP PRN PRN Reason: PAIN/FEVER > 101 Allopurinol (Zyloprim) 100 mg PO QDAY [facility] Last Admin: 08/18/17 09:54 Dose: 100 mg Aspirin (Ecotrin) 325 mg PO DAILY [facility] Last Admin: 08/18/17 09:54 Dose: 325 mg Ceftriaxone Sodium (Rocephin) 1 gm IV DAILY [facility] Last Admin: 08/18/17 09:53 Dose: 1 gm Cyanocobalamin (Vitamin B-12) 2,500 mcg PO DAILY [facility] Last Admin: 08/18/17 09:54 Dose: 2,500 mcg Dextrose (Dextrose 50%) 0 ml IV UD PRN PRN Reason: Hypoglycemia Diagnostic Test (Pha) (Accu-Chek) 1 each FS ACHS [facility] Last Admin: 08/18/17 16:30 Dose: 1 each Enoxaparin Sodium (Lovenox) 40 mg SQ DAILY [facility] Last Admin: 08/18/17 09:53 Dose: 40 mg Glucose (Insta-Glucose) 15 gm PO PRN PRN PRN Reason: Hypoglycemia Acetaminophen (Ofirmev) 650 mg in 65 mls @ 130 mls/hr IV Q6HP PRN PRN Reason: PAIN/FEVER > 101 Last Infusion: 08/17/17 01:00 Dose: Infused Sodium Chloride (Sodium Chloride 0.9%) 1,000 mls @ 125 mls/hr IV .Q8H [facility] Last Admin: 08/18/17 13:36 Dose: Not Given Insulin Human Lispro (Humalog) 0 unit SQ ACHS [facility] PRN Reason: Protocol Last Admin: 08/18/17 16:33 Dose: Not Given Levothyroxine Sodium (Synthroid) 100 mcg PO ACB [facility] Last Admin: 08/18/17 09:54 Dose: 100 mcg Lisinopril (Zestril) 20 mg PO QDAY [facility] Last Admin: 02/16/18 09:54 Dose: 20 mg Naloxone HCl (Narcan) 0.1 mg IV Q2MIN PRN PRN Reason: Opiate Reversal Nifedipine (Procardia Xl) 60 mg PO DAILY [facility] Last Admin: 08/18/17 09:54 Dose: 60 mg Ondansetron HCl (Zofran) 4 mg IV Q4HP PRN PRN Reason: Nausea And Vomiting Last Admin: 08/18/17 09:07 Dose: 4 mg Sertraline HCl (Zoloft) 50 mg PO DAILY [facility] Last Admin: 08/18/17 09:54 Dose: 50 mg - Imaging and cardiology CT scan - head Status: image reviewed by me Additional comments: IMPRESSION: Moderate atrophy and extensive chronic ischemic changes in the cerebral white matter compatible with age. No change from 08/16/2017 and 2015 Medical - PN: A/P - Time Spent With Patient Total time spent is greater than 50% in coordination of care (as documented) at patient's floor/unit and/or counseling patient: Greater than 35 minutes (1) Encephalopathy acute Status: Acute Current Visit: Yes (2) CRF (chronic renal failure) Status: Chronic Current Visit: Yes (3) Leukocytosis (leucocytosis) Status: Acute Current Visit: Yes (4) Hypothyroidism, acquired Status: Chronic Current Visit: No - Narrative A/P Narrative: 81-year-old female with fairly abrupt change in mental status, now developing fever in the hospital. Acute encephalopathy. More alert today (Monday). Suspect probably combination of opioid toxicity given empty pill bottle that was recently filled. However also with fever and occult infection, possible aspiration given her obtundation. Remains on antibiotics, cultures remain negative. Influenza negative, pro calcitonin negative, reassuring that this is not occult sepsis, though suspicion for infection remains high. Repeat head CT without evidence of evolution of stroke, but underlying ischemic WM disease makes more susceptible to mental status changes. Plan: Continue with antibiotics another day given mildly elevated WBC. Follow- up cultures. Continue with ceftriaxone. Continue with hydration and follow exam. Leukocytosis. Stable, but still mild. Plan: As above. Bradycardia. Now improved, less so in the last 24 hrs. Wonder if she has been having episodes of bradycardia at home, that may have contributed to her presentation. She did maintain adequate blood pressure with the low heart rate however. Plan: Continue to monitor on telemetry. Type 2 diabetes mellitus. On metformin at home. Given acute illness, holding metformin. Plan: Hold metformin, slight scale insulin, Accu-Cheks, diabetic diet. Osteoarthritis with chronic opioid use for pain control. Plan: Holding opioids while mental status is altered/encephalopathic. Chronic kidney disease, stage III. Baseline creatinine 1.1, stable at 1.2. History of microalbuminuria in 2014, now with occult proteinuria. Plan: Continue with lisinopril, renal dose medications as needed, monitor renal function. Acquired hypothyroidism with history of thyroidectomy. On levothyroxine replacement at home. Plan: TSH mildly elevated, will increase levothyroxine. Medical - PN: Qual - VTE Deep Vein Thrombosis/Pulmonary Embolism Present on Admission: No
--- NOTE | 2017-08-18 17:46 | XRay Report ---
CLINICAL INFORMATION: CHF COMPARISON: 08/16/2017 FINDINGS: Heart is normal in size on this PA upright film. Mediastinum and pulmonary vessels are normal. Lungs are clear. Tiny bilateral pleural effusions noted IMPRESSION: Complete resolution in CHF. Tiny bilateral pleural effusions persist Interpreted and Authenticated by: Fly Rivera 08/18/17
[2017-08-19 05:58] LABS: Basophils # (Auto) 0 K/mcL (0.0-0.3); Basophils % (Auto) 0.1 % (0.0-2.0); Eosinophils # (Auto) 0.4 K/mcL (0.0-0.7); Eosinophils % (Auto) 2.4 % (0.0-7.0); Granulocytes % (Auto) 75.2 % (38.0-78.0); Lymphocytes # (Auto) 2.6 K/mcL (1.5-4.8); Mean Cell Volume 88.6 fL (80.0-100.0); Mean Corpuscular HGB Conc 32.3 g/dL (31.0-36.0); Mean Corpuscular Hemoglobin 28.6 pg (26.0-34.0); Monocytes % (Auto) 6.3 % (1.0-12.0); Platelet Count 217 K/mcL (140-440); RBC 4.84 M/mcL (4.00-5.20); Red Cell Distribution Width 15.9 % (11.5-14.5)
[2017-08-19 06:11] LABS: Blood Urea Nitrogen 16 mg/dl (8-23)
[2017-08-19] MEDS: LEVOTHYROXINE 100 MCG TABLET PO SCH (07:52)
[2017-08-19] MEDS: INSULIN LISPRO 1 UNIT/0.01 ML UNIT SQ SCH ×4 (07:53→21:20)
[2017-08-19] MEDS: 0.9 % SODIUM CHLORIDE 1,000 ML IV SCH (08:17)
[2017-08-19] MEDS ORDERED: POTASSIUM CHLORIDE 20 MEQ PACKET PO ONE (08:37)
[2017-08-19] MEDS ORDERED: POTASSIUM CHLORIDE 20 MEQ in DEXTROSE 5% IN WATER 250 ML IV ONE (09:00)
[2017-08-19] MEDS: ENOXAPARIN 40 MG/0.4 ML SYRINGE SQ SCH (09:11)
[2017-08-19] MEDS: ASPIRIN 325 MG ENTERIC COATED TABLET PO SCH (09:11)
[2017-08-19] MEDS: cefTRIAXone 1 GM VIAL IV SCH (09:12)
[2017-08-19] MEDS: NIFEdipine 30 MG TAB.XL.24H PO SCH ×2 (09:12→21:23)
[2017-08-19] MEDS: CYANOCOBALAMIN (VITAMIN B-12) 500 MCG TABLET PO SCH (09:13)
[2017-08-19] MEDS: LISINOPRIL 20 MG TABLET PO SCH (09:13)
[2017-08-19] MEDS: ALLOPURINOL 100 MG TABLET PO SCH (09:13)
[2017-08-19] MEDS: SERTRALINE 50 MG TABLET PO SCH (09:13)
--- NOTE | 2017-08-19 10:17 | Internal Med Progress Note ---
Medical - PN: Subj Patient information: Note initiated : 08/19/17 at 10:14 am Service Date, if different from initiated Date: [] Patient: Amada Herron 81 y/o F admitted on 08/17/17 for Altered LOC. Chief Complaint: f/u encephalopathy Interval history: Aug 16 The patient's 84-year-old female with a history of osteoarthritis, hypothyroidism, type 2 diabetes mellitus, hypertension who presents today from home via EMS with changes in mental status. History is obtained in speaking with Dr. Machado from the emergency department, and reviewing old medical records.. The patient's unable to provide any history. Apparently at baseline the patient is mostly nonambulatory, it appears due to osteoarthritis and morbid obesity, but is able to transfer into a power scooter , and functions well at home where she lives with her son who is a caregiver. Proximally 7:00-8:00 PM last night, her son noted that her speech became incoherent, she was babbling, having difficulty speaking and with garbled words at time. It is unclear if this was a word finding problem or an articulation problem. She also became much more weak, was unable to transfer to her scooter. Her son was concerned that she may have consumed extra dose of her opioid pain medication. He continued to monitor her. She did not improve, she presents to the emergency department early this morning via EMS for altered mental status. When she arrived she is a lethargic , initially poorly responsive. She received Narcan en route via EMS with no significant change. She was able to wake time and interactive with questions, at other times not so much, with a waxing and waning attention in mental status. She spent most of the overnight in the ED sleeping. She would arouse and respond somewhat, but was not back to her usual status. Laboratory evaluation was notable for white count of 13.8. She has stable renal function and creatinine 1.2 (CKD stage III). Chest x-ray showed evidence of volume overload/congestive heart failure. Urinalysis with proteinuria and ketonuria but no evidence of urinary tract infection. Head CT was with chronic white matter changes, nothing acute. I was contacted to hospitalize the patient for further evaluation. During my examination, the patient felt warm, sound to have a temperature of 100.8, having been normal actually one hour previously. Patient is being hospitalized for further evaluation of encephalopathy, suspected occult infection.she is attempting to reply at times, but does not appear to track with conversations. She does not meaningfully follow commands. Aug 17 During the day yesterday, the patient became progressively more arousable. He was able to assist in some care. Was able to give a few responses. She recently had a oxycodone prescription filled, the bottle was empty. This was brought in by family. Now looking like she may have had opioid toxicity, even though she did not initially respond to Narcan. However also febrile 102.5 upon arrival on the floor yesterday. Ceftriaxone was started. Fevers of tapered off. Cultures are negative to date. Patient appeared quite dehydrated as well, though mild CHF reported on chest x-ray. Responded to IV fluids. This morning seems to be in no distress. However did have abrupt decline in pulse from 80s to 40s and occasionally into the 30s with a sinus bradycardia. EKG shows no injury pattern, does show bradycardia. Pulse picked up in the 50s when aroused. Patient denies any complaints, though unclear if she is fully tracking with questions still. Aug 18 Alerts early this afternoon. Able to carry on fairly good conversation, though tends to perseverate a bit on what her son has not been in contact (he's been in contact with case management) and unclear as to why she went up in the hospital. She stated she may have taken extra pain medications on occasion in the past, though tries to be careful with that. She was not sure why her pill bottle filled last week with 30 tablets would be empty. No fever, chills. She had nausea yesterday, seems to be resolved. No dyspnea. Good urine output. August 19 Seen at bedside along with RN. Continues to slowly improve. Relates that she had been starting to wean off oxycodone and was starting on tramadol as an alternative, however this does not seem to explain why her supply of 30 oxycodone tablets were gone within a week. Notes that she been having some headaches after a fall in April when she had her head, however those seem to have resolved now. Also notes sometimes she has trouble with word finding and getting her words out. This morning, she had significant coughing after trying to eat breakfast. Concerned that she may have had some aspiration. White count is rising, however she has stable vitals, no further fever and no source. Chest x-ray yesterday looked good. Dumont is draining clear urine and follow-up UA is pending. - Constitutional Vitals: Vital Signs Temp Pulse Resp BP Pulse Ox 98.4 F 65 18 187/116 98 08/19/17 07:05 08/19/17 00:22 08/19/17 07:05 08/19/17 07:05 08/19/17 07:05 Period Temp Pulse Resp BP Sys/King Pulse Ox Last 24 Hr 97.9 F-98.4 F 59-70 16-20 157-197/78-116 97-100 Intake and Output 08/18/17 08/19/17 08/19/17 21:59 05:59 13:59 Intake Total 660 / 660 1300 / 1300 1000 / 1000 Output Total 600 / 600 1900 / 1900 Balance 60 / 60 -600 / -600 1000 / 1000 Weight 241 lb 8 oz Intake & Output: Intake & Output 08/18/17 08/19/17 08/19/17 21:59 05:59 13:59 Intake Total 660 / 660 1300 / 1300 1000 / 1000 Output Total 600 / 600 1900 / 1900 Balance 60 / 60 -600 / -600 1000 / 1000 Weight 241 lb 8 oz Intake: IV 1000 / 1000 1000 / 1000 Sodium Chloride 0.9% 1,000 ml @ 1000 / 1000 1000 / 1000 125 mls/hr IV .Q8H [facility] Rx#: [id number] Oral 660 / 660 300 / 300 Output: Urine Catheter Amount 600 / 600 1900 / 1900 Other: Meal Dinner Percent of Meal Consumed 10% Exam: General: Laying in bed in no acute distress, alert, talkative Chest: Clear, good aeration to bases Cardiovascular: Regular, no edema Abdomen: Soft, nontender Neuro: Alert, oriented to person, she knows is in the hospital in [place], still does not specifically recall the circumstances leading to her arriving here. She is generally weak, but spent up to the shower without focal neurologic findings. Medical - PN: Obj Da - Labs CBC & Chem 7: 08/19/17 03:50 08/19/17 03:50 Labs: Abnormal Lab Results 08/19/17 08/19/17 08/18/17 03:50 03:50 04:34 WBC 16.3 H 13.8 H RBC Hgb Hct RDW 15.9 H 15.9 H MPV 10.7 H Gran # 12.2 H 10.4 H Pitkin # (Auto) 1.0 H Potassium 3.0 L Vitamin B12 08/17/17 08/16/17 04:05 11:02 WBC 11.7 H RBC 3.71 L Hgb 11.1 L Hct 33.5 L RDW 16.0 H MPV Gran # 8.8 H Pitkin # (Auto) Potassium Vitamin B12 1415 H Microbiology 08/16/17 10:55 Blood Culture - Preliminary Blood 08/16/17 11:05 Blood Culture - Preliminary Blood 08/18/17 05:59 C.difficile Toxin B Gene (PCR) - Final Stool Meds: Medications Acetaminophen (Tylenol) 650 mg PO Q6HP PRN PRN Reason: PAIN/FEVER > 101 Allopurinol (Zyloprim) 100 mg PO QDAY [facility] Last Admin: 08/19/17 09:13 Dose: 100 mg Aspirin (Ecotrin) 325 mg PO DAILY [facility] Last Admin: 08/19/17 09:11 Dose: 325 mg Ceftriaxone Sodium (Rocephin) 1 gm IV DAILY [facility] Last Admin: 08/19/17 09:12 Dose: 1 gm Cyanocobalamin (Vitamin B-12) 2,500 mcg PO DAILY [facility] Last Admin: 08/19/17 09:13 Dose: 2,500 mcg Dextrose (Dextrose 50%) 0 ml IV UD PRN PRN Reason: Hypoglycemia Diagnostic Test (Pha) (Accu-Chek) 1 each FS [facility] Last Admin: 08/19/17 07:52 Dose: 1 each Enoxaparin Sodium (Lovenox) 40 mg SQ DAILY [facility] Last Admin: 08/19/17 09:11 Dose: 40 mg Glucose (Insta-Glucose) 15 gm PO PRN PRN PRN Reason: Hypoglycemia Acetaminophen (Ofirmev) 650 mg in 65 mls @ 130 mls/hr IV Q6HP PRN PRN Reason: PAIN/FEVER > 101 Last Infusion: 08/17/17 01:00 Dose: Infused Potassium Chloride 20 meq/ (Dextrose) 260 mls @ 130 mls/hr IV ONCE ONE Stop: 08/19/17 10:59 Last Admin: 08/19/17 09:12 Dose: 130 mls/hr Insulin Human Lispro (Humalog) 0 unit SQ [facility] PRN Reason: Protocol Last Admin: 08/19/17 07:53 Dose: Not Given Levothyroxine Sodium (Synthroid) 100 mcg PO ACB [facility] Last Admin: 08/19/17 07:52 Dose: 100 mcg Lisinopril (Zestril) 20 mg PO QDAY [facility] Last Admin: 08/19/17 09:13 Dose: 20 mg Naloxone HCl (Narcan) 0.1 mg IV Q2MIN PRN PRN Reason: Opiate Reversal Nifedipine (Procardia Xl) 60 mg PO DAILY [facility] Last Admin: 08/19/17 09:12 Dose: 60 mg Nifedipine (Procardia Xl) 30 mg PO HS [facility] Last Admin: 08/18/17 21:56 Dose: 30 mg Ondansetron HCl (Zofran) 4 mg IV Q4HP PRN PRN Reason: Nausea And Vomiting Last Admin: 08/18/17 09:07 Dose: 4 mg Sertraline HCl (Zoloft) 50 mg PO DAILY [facility] Last Admin: 08/19/17 09:13 Dose: 50 mg Medical - PN: A/P - Time Spent With Patient Total time spent is greater than 50% in coordination of care (as documented) at patient's floor/unit and/or counseling patient: Greater than 35 minutes (1) Encephalopathy acute Status: Acute Current Visit: Yes (2) CRF (chronic renal failure) Status: Chronic Current Visit: Yes (3) Leukocytosis (leucocytosis) Status: Acute Current Visit: Yes (4) Hypothyroidism, acquired Status: Chronic Current Visit: No - Narrative A/P Narrative: 81-year-old female with fairly abrupt change in mental status, now developing fever in the hospital. Acute encephalopathy. Appears to be close to baseline Monday.. Suspect probably combination of opioid toxicity given empty pill bottle that was recently filled. However, also febrile at admission, concern for aspiration pneumonitis from obtundation (CXR clear) or other occult infection contributing to presentation. Repeat head CT without evidence of evolution of stroke, but underlying ischemic WM disease makes more susceptible to mental status changes. Plan: Continue with antibiotics another day given mildly elevated WBC. Follow- up cultures. Continue with ceftriaxone. Continue with hydration and follow exam. Leukocytosis. WBC rising, no source identified, cultures negative. Influenza negative, procalcitonin negative, reassuring that this is not occult sepsis. May be due to recurrent aspiration events (though not enough to cause CXR changes). Plan: Continue ceftriaxone, follow fever curve and WBC, reculture if spikes. Repeat UA pending. Speech Therapy eval. Coughing with meals/aspiration risk. May have contributed to fever at presentation and increasing white count. Plan: Speech therapy evaluation and treat. Bradycardia. Improved, only intermittent HR to upper 50's at rest, increases appropriately with activity. Wonder if she has been having episodes of bradycardia at home, that may have contributed to her presentation. She did maintain adequate blood pressure with the low heart rate however. Plan: Can stop tele if remains stable. Type 2 diabetes mellitus. On metformin at home. Given acute illness, holding metformin. Plan: Hold metformin, slight scale insulin, Accu-Cheks, diabetic diet. Osteoarthritis with chronic opioid use for pain control. Plan: Holding opioids while mental status is altered/encephalopathic. Chronic kidney disease, stage III. Baseline creatinine 1.1, stable at 1.2. History of microalbuminuria in 2014, now with occult proteinuria. Plan: Continue with lisinopril, renal dose medications as needed, monitor renal function. Acquired hypothyroidism with history of thyroidectomy. On levothyroxine replacement at home. Plan: TSH mildly elevated, will increase levothyroxine. Hypokalemia Plan: [facility]lete Medical - PN: Qual - VTE Deep Vein Thrombosis/Pulmonary Embolism Present on Admission: No
[2017-08-19 13:13] LABS: Appearance,Urine CLEAR; Bacteria,Urine 0 /hpf (0); Bilirubin,Urine NEG (NEG); Color,Urine STRAW; Glucose,Urine (UA) NEGATIVE (NEG); Leukocyte Esterase,Urine NEG /uL (NEG); Mucus,Urine FEW /hpf (0); Protein,Urine >=500 mg/dL (NEG); Specific Gravity,Urine 1.011 (1.000-1.035); Urine Blood 0.2 mg/dL (<0.03); Urine Hyaline Cast 2 /lpf (0-2); Urine RBC 32 /hpf (0-1); Urine Squamous Epithelial Cell 0 /hpf (0-4); Urine WBC 1 /hpf (0-4); Urobilinogen,Urine NEG (NEG)
[2017-08-20 04:53] LABS: Basophils # (Auto) 0 K/mcL (0.0-0.3); Basophils % (Auto) 0.2 % (0.0-2.0); Eosinophils # (Auto) 0.3 K/mcL (0.0-0.7); Eosinophils % (Auto) 1.8 % (0.0-7.0); Granulocytes % (Auto) 71.2 % (38.0-78.0); Lymphocytes # (Auto) 2.8 K/mcL (1.5-4.8); Lymphocytes % (Auto) 19.2 % (15.5-49.0); Mean Cell Volume 88.7 fL (80.0-100.0); Mean Corpuscular Hemoglobin 29.3 pg (26.0-34.0); Monocytes # (Auto) 1.1 K/mcL (0.1-0.9); Monocytes % (Auto) 7.6 % (1.0-12.0); Platelet Count 214 K/mcL (140-440); RBC 4.48 M/mcL (4.00-5.20); Red Cell Distribution Width 16.1 % (11.5-14.5)
[2017-08-20 05:16] LABS: ALT/SGPT 18 U/l (0-40); Alkaline Phosphatase 63 U/L (39-117); Bilirubin,Direct < 0.2 mg/dL (0.0-0.3); Blood Urea Nitrogen 14 mg/dl (8-23); Gamma Glutamyl Transpeptidase 12 U/L (5-36); Uric Acid 4.8 mg/dL (2.5-8.0)
[2017-08-20] MEDS ORDERED: MAGNESIUM SULFATE 32.48 MEQ in DEXTROSE 5% IN WATER 100 ML IV ONE (05:26)
[2017-08-20] MEDS ORDERED: MAGNESIUM SULFATE 4 GM/100 ML BAG IV ONE (05:32)
[2017-08-20] MEDS ORDERED: POTASSIUM PHOSPHATE 40 MEQ in DEXTROSE 5% IN WATER 500 ML IV ONE (08:00)
--- NOTE | 2017-08-20 08:32 | Internal Med Progress Note ---
Medical - PN: Subj Patient information: Note initiated : 08/20/17 at 8:27 am Service Date, if different from initiated Date: [] Patient: Amada Herron 81 y/o F admitted on 08/17/17 for Altered LOC. Chief Complaint: f/u encephalopathy Interval history: Aug 16 The patient's 84-year-old female with a history of osteoarthritis, hypothyroidism, type 2 diabetes mellitus, hypertension who presents today from home via EMS with changes in mental status. History is obtained in speaking with Dr. Machado from the emergency department, and reviewing old medical records.. The patient's unable to provide any history. Apparently at baseline the patient is mostly nonambulatory, it appears due to osteoarthritis and morbid obesity, but is able to transfer into a power scooter , and functions well at home where she lives with her son who is a caregiver. Proximally 7:00-8:00 PM last night, her son noted that her speech became incoherent, she was babbling, having difficulty speaking and with garbled words at time. It is unclear if this was a word finding problem or an articulation problem. She also became much more weak, was unable to transfer to her scooter. Her son was concerned that she may have consumed extra dose of her opioid pain medication. He continued to monitor her. She did not improve, she presents to the emergency department early this morning via EMS for altered mental status. When she arrived she is a lethargic , initially poorly responsive. She received Narcan en route via EMS with no significant change. She was able to wake time and interactive with questions, at other times not so much, with a waxing and waning attention in mental status. She spent most of the overnight in the ED sleeping. She would arouse and respond somewhat, but was not back to her usual status. Laboratory evaluation was notable for white count of 13.8. She has stable renal function and creatinine 1.2 (CKD stage III). Chest x-ray showed evidence of volume overload/congestive heart failure. Urinalysis with proteinuria and ketonuria but no evidence of urinary tract infection. Head CT was with chronic white matter changes, nothing acute. I was contacted to hospitalize the patient for further evaluation. During my examination, the patient felt warm, sound to have a temperature of 100.8, having been normal actually one hour previously. Patient is being hospitalized for further evaluation of encephalopathy, suspected occult infection.she is attempting to reply at times, but does not appear to track with conversations. She does not meaningfully follow commands. Aug 17 During the day yesterday, the patient became progressively more arousable. He was able to assist in some care. Was able to give a few responses. She recently had a oxycodone prescription filled, the bottle was empty. This was brought in by family. Now looking like she may have had opioid toxicity, even though she did not initially respond to Narcan. However also febrile 102.5 upon arrival on the floor yesterday. Ceftriaxone was started. Fevers of tapered off. Cultures are negative to date. Patient appeared quite dehydrated as well, though mild CHF reported on chest x-ray. Responded to IV fluids. This morning seems to be in no distress. However did have abrupt decline in pulse from 80s to 40s and occasionally into the 30s with a sinus bradycardia. EKG shows no injury pattern, does show bradycardia. Pulse picked up in the 50s when aroused. Patient denies any complaints, though unclear if she is fully tracking with questions still. Aug 18 Alerts early this afternoon. Able to carry on fairly good conversation, though tends to perseverate a bit on what her son has not been in contact (he's been in contact with case management) and unclear as to why she went up in the hospital. She stated she may have taken extra pain medications on occasion in the past, though tries to be careful with that. She was not sure why her pill bottle filled last week with 30 tablets would be empty. No fever, chills. She had nausea yesterday, seems to be resolved. No dyspnea. Good urine output. August 19 Seen at bedside along with RN. Continues to slowly improve. Relates that she had been starting to wean off oxycodone and was starting on tramadol as an alternative, however this does not seem to explain why her supply of 30 oxycodone tablets were gone within a week. Notes that she been having some headaches after a fall in April when she had her head, however those seem to have resolved now. Also notes sometimes she has trouble with word finding and getting her words out. This morning, she had significant coughing after trying to eat breakfast. Concerned that she may have had some aspiration. White count is rising, however she has stable vitals, no further fever and no source. Chest x-ray yesterday looked good. Dumont is draining clear urine and follow-up UA is pending. August 20 Continues to have intermittent nausea, says carmen magui helps. Still some tangentiality with thoughts and speech. This may be her baseline, suspect that there are some underlying cognitive impairment. White count still elevated, low -grade temp. Some left lower quadrant pain on exam today, we'll evaluate for abdominal process with CT. - Constitutional Vitals: Vital Signs Temp Pulse Resp BP Pulse Ox 99.4 F H 67 18 168/71 98 08/20/17 08:00 08/20/17 04:00 08/20/17 08:00 08/20/17 08:00 08/20/17 08:00 Period Temp Pulse Resp BP Sys/King Pulse Ox Last 24 Hr 98.4 F-99.4 F 66-68 16-20 160-187/71-90 91-98 Intake and Output 08/19/17 08/20/17 08/20/17 21:59 05:59 13:59 Intake Total 520 / 520 480 / 480 Output Total 950 / 950 Balance -430 / -430 480 / 480 Weight 240 lb 9.6 oz Intake & Output: Intake & Output 08/19/17 08/20/17 08/20/17 21:59 05:59 13:59 Intake Total 520 / 520 480 / 480 Output Total 950 / 950 Balance -430 / -430 480 / 480 Weight 240 lb 9.6 oz Intake: Oral 520 / 520 480 / 480 Output: Void Amount 650 / 650 Urine/Stool Mix 300 / 300 Other: Meal Lunch Percent of Meal Consumed 25% Stool Size Small Small Small Stool Color Brown Brown Brown Yellow Stool Consistency Loose Loose Liquid Loose # Voids 1 1 # Bowel Movements 1 1 1 Exam: General: Sitting in bed, pleasant, alert Chest: Clear, unlabored Cardiovascular: Regular with 2/6 murmur, unchanged, no edema Abdomen: Obese, soft, mild to moderate left lower quadrant tenderness with deep palpation, no guarding or rebound. No right lower quadrant tenderness, no upper quadrant tenderness. Bowel sounds are active. Neuro: Alert, oriented to self,the hospital, still seems confused as to the situation leading her to be admitted. Generally weak. Medical - PN: Obj Da - Labs CBC & Chem 7: 08/20/17 03:54 02/18/18 03:54 Labs: Abnormal Lab Results 08/20/17 08/20/17 08/19/17 03:54 03:54 11:50 WBC 14.7 H RDW 16.1 H MPV Gran # 10.5 H Anderson # (Auto) 1.1 H Potassium 2.8 L* Phosphorus 1.7 L Magnesium 1.4 L Lactate Dehydrogenase 276 H Albumin 3.0 L Triglycerides 153 H Urine Protein >=500 A Urine Ketones 5/tr A Urine Occult Blood 0.2 A Urine RBC 32 H 08/19/17 08/19/17 08/18/17 03:50 03:50 04:34 WBC 16.3 H 13.8 H RDW 15.9 H 15.9 H MPV 10.7 H Gran # 12.2 H 10.4 H Anderson # (Auto) 1.0 H Potassium 3.0 L Phosphorus Magnesium Lactate Dehydrogenase Albumin Triglycerides Urine Protein Urine Ketones Urine Occult Blood Urine RBC Microbiology 08/19/17 13:14 C.difficile Toxin B Gene (PCR) - Final Stool 08/16/17 10:55 Blood Culture - Preliminary Blood 08/16/17 11:05 Blood Culture - Preliminary Blood Meds: Medications Acetaminophen (Tylenol) 650 mg PO Q6HP PRN PRN Reason: PAIN/FEVER > 101 Allopurinol (Zyloprim) 100 mg PO QDAY [facility] Last Admin: 08/19/17 09:13 Dose: 100 mg Aspirin (Ecotrin) 325 mg PO DAILY [facility] Last Admin: 08/19/17 09:11 Dose: 325 mg Ceftriaxone Sodium (Rocephin) 1 gm IV DAILY [facility] Last Admin: 08/19/17 09:12 Dose: 1 gm Cyanocobalamin (Vitamin B-12) 2,500 mcg PO DAILY [facility] Last Admin: 08/19/17 09:13 Dose: 2,500 mcg Dextrose (Dextrose 50%) 0 ml IV UD PRN PRN Reason: Hypoglycemia Diagnostic Test (Pha) (Accu-Chek) 1 each FS ACHS [facility] Last Admin: 08/19/17 21:20 Dose: 1 each Enoxaparin Sodium (Lovenox) 40 mg SQ DAILY [facility] Last Admin: 08/19/17 09:11 Dose: 40 mg Glucose (Insta-Glucose) 15 gm PO PRN PRN PRN Reason: Hypoglycemia Acetaminophen (Ofirmev) 650 mg in 65 mls @ 130 mls/hr IV Q6HP PRN PRN Reason: PAIN/FEVER > 101 Last Infusion: 08/17/17 01:00 Dose: Infused Potassium Phosphate 40 meq/ (Dextrose) 509.0909 mls @ 127.273 mls/hr IV ONCE ONE Stop: 08/20/17 11:59 Insulin Human Lispro (Humalog) 0 unit SQ ACHS PB PRN Reason: Protocol Last Admin: 08/19/17 21:20 Dose: Not Given Levothyroxine Sodium (Synthroid) 100 mcg PO ACB [facility] Last Admin: 08/19/17 07:52 Dose: 100 mcg Lisinopril (Zestril) 20 mg PO QDAY [facility] Last Admin: 08/19/17 09:13 Dose: 20 mg Naloxone HCl (Narcan) 0.1 mg IV Q2MIN PRN PRN Reason: Opiate Reversal Nifedipine (Procardia Xl) 60 mg PO DAILY [facility] Last Admin: 08/19/17 09:12 Dose: 60 mg Nifedipine (Procardia Xl) 30 mg PO HS [facility] Last Admin: 08/19/17 21:23 Dose: 30 mg Ondansetron HCl (Zofran) 4 mg IV Q4HP PRN PRN Reason: Nausea And Vomiting Last Admin: 08/18/17 09:07 Dose: 4 mg Sertraline HCl (Zoloft) 50 mg PO DAILY [facility] Last Admin: 08/19/17 09:13 Dose: 50 mg Medical - PN: A/P - Time Spent With Patient Total time spent is greater than 50% in coordination of care (as documented) at patient's floor/unit and/or counseling patient: Greater than 35 minutes (1) Encephalopathy acute Status: Acute Current Visit: Yes (2) CRF (chronic renal failure) Status: Chronic Current Visit: Yes (3) Leukocytosis (leucocytosis) Status: Acute Current Visit: Yes (4) Hypothyroidism, acquired Status: Chronic Current Visit: No - Narrative A/P Narrative: 81-year-old female with fairly abrupt change in mental status, now developing fever in the hospital. Acute encephalopathy. Appears to be close to baseline Monday and Monday. Suspect probably combination of opioid toxicity given empty pill bottle that was recently filled. However, also febrile at admission, concern for aspiration pneumonitis from obtundation (CXR clear) or other occult infection contributing to presentation. Repeat head CT without evidence of evolution of stroke, but underlying ischemic WM disease makes more susceptible to mental status changes. Now with LLQ pain on exam, will eval for diverticulitis. Plan: Continue with antibiotics. Follow-up cultures. Saline lock. Check CTAP. Leukocytosis. WBC a little better, but no source identified, cultures negative. Influenza negative, procalcitonin negative, reassuring that this is not occult sepsis. May be due to recurrent aspiration events (though not enough to cause CXR changes). LLQ tenderness on exam on Monday, will check CTAP to evaluate for diverticulitis or other abdominal process. Plan: Continue ceftriaxone, follow fever curve and WBC, reculture if spikes. Repeat UA pending. Speech Therapy eval. CTAP. Coughing with meals/aspiration risk. May have contributed to fever at presentation and increasing white count. Plan: Speech therapy evaluation and treat. Hypertension. On extended release nifedipine and lisinopril at home. Still running elevated blood pressures. Nifedipine dose increased, 30 mg at bedtime was added to 60 mg in the morning. Plan: Follow vitals, adjust as needed. Hypokalemia, hypophosphatemia. Plan: Replete. Bradycardia. Improved, only intermittent HR to upper 50's at rest, increases appropriately with activity. Wonder if she has been having episodes of bradycardia at home, that may have contributed to her presentation. She did maintain adequate blood pressure with the low heart rate however. Plan: Can stop tele if remains stable. Type 2 diabetes mellitus. On metformin at home. Given acute illness, holding metformin. Plan: Hold metformin, slight scale insulin, Accu-Cheks, diabetic diet. Osteoarthritis with chronic opioid use for pain control. Plan: Holding opioids while mental status is altered/encephalopathic. Chronic kidney disease, stage III. Baseline creatinine 1.1, stable at 1.2. History of microalbuminuria in 2015, now with occult proteinuria. Plan: Continue with lisinopril, renal dose medications as needed, monitor renal function. Acquired hypothyroidism with history of thyroidectomy. On levothyroxine replacement at home. Plan: TSH mildly elevated, will increase levothyroxine. Disposition: Will likely need to go to rehabilitation. Appears living situation was tenuous prior to admit, she was living with her son. Can go to [facility] once electrolytes are corrected. Medical - PN: Qual - VTE Deep Vein Thrombosis/Pulmonary Embolism Present on Admission: No
[2017-08-20] MEDS ORDERED: methylPREDNISolone SOD SUCC 125 MG/2 ML VIAL IV ONE (08:40)
[2017-08-20] MEDS ORDERED: diphenhydrAMINE 50 MG/ML VIAL IV ONE (08:42)
[2017-08-20] MEDS ORDERED: IOPAMIDOL 100 ML BOTTLE IV ONE (09:24)
[2017-08-20] MEDS: INSULIN LISPRO 1 UNIT/0.01 ML UNIT SQ SCH ×4 (09:40→20:31)
[2017-08-20] MEDS: cefTRIAXone 1 GM VIAL IV SCH (10:08)
[2017-08-20] MEDS: NIFEdipine 30 MG TAB.XL.24H PO SCH ×2 (10:08→20:30)
[2017-08-20] MEDS: ENOXAPARIN 40 MG/0.4 ML SYRINGE SQ SCH (10:08)
[2017-08-20] MEDS: LEVOTHYROXINE 100 MCG TABLET PO SCH (10:09)
[2017-08-20] MEDS: LISINOPRIL 20 MG TABLET PO SCH (10:09)
[2017-08-20] MEDS: ALLOPURINOL 100 MG TABLET PO SCH (10:09)
[2017-08-20] MEDS: CYANOCOBALAMIN (VITAMIN B-12) 500 MCG TABLET PO SCH (10:09)
[2017-08-20] MEDS: ASPIRIN 325 MG ENTERIC COATED TABLET PO SCH (10:09)
[2017-08-20] MEDS: ACETAMINOPHEN 325 MG TABLET PO PRN (10:10)
[2017-08-20] MEDS: SERTRALINE 50 MG TABLET PO SCH (10:10)
[2017-08-20] MEDS: metroNIDAZOLE 500 MG/100 ML BAG IV SCH ×2 (11:00→21:31)
[2017-08-20] MEDS ORDERED: LIDOCAINE 1% 20 ML VIAL SQ ONE (14:21)
--- NOTE | 2017-08-20 14:21 | Cat Scan Report ---
CLINICAL INFORMATION: Left lower quadrant pain and distention. Elevated white blood cell count COMPARISON: Abdomen and pelvic CT from 05/05/2010 TECHNIQUE: Following enteric contrast, 80 cc of Isovue-300 were injected intravenously, and 60 seconds later, 0.625 mm helical slices were obtained from the mid heart through the subtrochanteric regions. Following reconstruction, 2.5 mm sagittal, coronal and axial reformatted images were processed and reviewed at bone, lung and soft tissue windows. Five minutes later, 0.625 mm helical slices were obtained from the mid heart through the kidneys and viewed at soft tissue windows.The exam was performed using radiation dose optimization techniques including, but not limited to, automated exposure control, adjustment of the mA and/or kV according to patient size and use of iterative reconstruction technique. FINDINGS: Lung bases are clear. No effusions. The visualized heart is mildly enlarged with moderately heavy atherosclerotic plaque in the coronary arteries Images through the abdomen show mild fatty change within the liver, but no focal lesions. The gallbladder is surgically absent. Intrahepatic and common bile ducts are normal caliber. Both kidneys, adrenal glands, spleen and aorta, including aortic branches, are normal in size, configuration and attenuation without focal lesion. Scattered cysts are again noted in in both kidneys. Mild atrophy of the right kidney 9 x 4 cm.. The kidney is normal in size 12 x 5 cm. Images through the pelvis show urinary bladder to be unremarkable. Hysterectomy/oophorectomy changes are noted. The terminal ileum and scattered segments of ileum and proximal jejunum demonstrate moderate thickening of the wall and plica circulares folds. Small bowel is mildly dilated and the colon is relatively decompressed but there is no definite transition region that would suggest munira bowel obstruction There is moderate concentric wall thickening of the rectum and distal sigmoid. Moderate ascites is seen in the perihepatic region.. Bone windows show no osseous abnormality IMPRESSION: 1. Moderate thickening of the wall and plica circulares folds in the distal jejunum and ileum with possibly skip lesions. There is involvement of the terminal ileum. This also moderate concentric wall thickening of the rectum and distal sigmoid. Moderate ascites is noted in the perihepatic region. Diagnostic considerations include inflammatory bowel disease or infectious enteritis. Imaging guided paracentesis will be performed for fluid analysis. Also suggest colonoscopy to exam and possibly biopsy both the rectum and the terminal ileum. 2. Mild atrophy of the right kidney with mild compensatory hypertrophy of the left kidney. There is equivocal stenosis of the right renal artery origin. Interpreted and Authenticated by: Fly Rivera 08/20/17
[2017-08-20 16:24] LABS: Amylase,Peritoneal Fluid 34 U/L; LDH,Peritoneal Fluid 117 U/L; Total Protein,Peritoneal Fluid 3.6 gm/dL
[2017-08-20 16:49] LABS: Neutrophils,Peritoneal Fluid 4 %; Nucleated Cel,Peritoneal Fluid 291 /cumm; RBC,Peritoneal Fluid < 50000 /cumm
--- NOTE | 2017-08-20 19:39 | Cat Scan Report ---
CT-guided paracentesis Technique: The procedure and risks including possibility of bleeding, infection, bowel and parenchymal organ perforation were explained the patient. She understood and wished to proceed. Certified Court/Medical Interpreter CT scanning demonstrated moderate ascites and perihepatic region the skin was marked, prepped and locally anesthetized 1% lidocaine to the level of the parietal peritoneum using a 25-gauge needle. A 18-gauge Yueh needle was then placed under CT guidance into the ascites and approximately 20 cc simple appearing ascites was aspirated and sent for requested studies. The needle was removed. Postprocedure scanning shows minimal residual ascites. No apparent complication - patient tolerated procedure well. IMPRESSION: Successful CT-guided paracentesis yielding 20 cc of simple appearing transudative ascites. Fluid was sent to the laboratory for requested studies. Postprocedure scanning shows only minimal residual fluid. Patient tolerated procedure well without apparent complication Interpreted and Authenticated by: Fly Rivera 08/20/17
[2017-08-21 05:21] LABS: ALT/SGPT 48 U/l (0-40); Albumin 3.4 gm/dL (3.2-5.2); Albumin/Globulin Ratio 1.2 (1.0-2.3); Alkaline Phosphatase 61 U/L (39-117); Bilirubin,Direct < 0.2 mg/dL (0.0-0.3); Blood Urea Nitrogen 13 mg/dl (8-23); Gamma Glutamyl Transpeptidase 12 U/L (5-36); Uric Acid 5.1 mg/dL (2.5-8.0)
[2017-08-21] MEDS ORDERED: POTASSIUM CHLORIDE 80 MEQ in DEXTROSE 5% IN WATER 1,000 ML IV ONE (05:43)
[2017-08-21] MEDS ORDERED: POTASSIUM CHLORIDE 20 MEQ TABLET PO ONE (05:46)
[2017-08-21] MEDS ORDERED: POTASSIUM CHLORIDE 20 MEQ/10 ML VIAL IV ONE (05:50)
[2017-08-21] MEDS ORDERED: POTASSIUM CHLORIDE 10 MEQ TABLET PO ONE (05:51)
[2017-08-21] MEDS: metroNIDAZOLE 500 MG/100 ML BAG IV SCH ×3 (06:17→21:53)
[2017-08-21 06:31] LABS: Basophils # (Auto) 0 K/mcL (0.0-0.3); Basophils % (Auto) 0.3 % (0.0-2.0); Eosinophils # (Auto) 0.3 K/mcL (0.0-0.7); Eosinophils % (Auto) 1.8 % (0.0-7.0); Granulocytes % (Auto) 68.6 % (38.0-78.0); Lymphocytes # (Auto) 3.2 K/mcL (1.5-4.8); Lymphocytes % (Auto) 21.5 % (15.5-49.0); Mean Cell Volume 88.3 fL (80.0-100.0); Mean Corpuscular HGB Conc 32.5 g/dL (31.0-36.0); Mean Corpuscular Hemoglobin 28.7 pg (26.0-34.0); Monocytes # (Auto) 1.1 K/mcL (0.1-0.9); Monocytes % (Auto) 7.8 % (1.0-12.0); Platelet Count 230 K/mcL (140-440); RBC 4.84 M/mcL (4.00-5.20); Red Cell Distribution Width 16.3 % (11.5-14.5)
[2017-08-21] MEDS: INSULIN LISPRO 1 UNIT/0.01 ML UNIT SQ SCH ×4 (08:08→20:41)
[2017-08-21] MEDS: LEVOTHYROXINE 100 MCG TABLET PO SCH (08:39)
[2017-08-21] MEDS: SERTRALINE 50 MG TABLET PO SCH (09:08)
[2017-08-21] MEDS: ASPIRIN 325 MG ENTERIC COATED TABLET PO SCH (09:11)
[2017-08-21] MEDS: ENOXAPARIN 40 MG/0.4 ML SYRINGE SQ SCH (09:11)
[2017-08-21] MEDS: LISINOPRIL 20 MG TABLET PO SCH (09:12)
[2017-08-21] MEDS: ALLOPURINOL 100 MG TABLET PO SCH (09:12)
[2017-08-21] MEDS: CYANOCOBALAMIN (VITAMIN B-12) 500 MCG TABLET PO SCH (09:14)
[2017-08-21] MEDS: NIFEdipine 30 MG TAB.XL.24H PO SCH ×2 (09:19→20:47)
[2017-08-21] MEDS: cefTRIAXone 1 GM VIAL IV SCH (09:20)
--- NOTE | 2017-08-21 09:38 | Ultrasound Report ---
History: Ascites Findings: A moderate amount of ascites is seen in the right side of the abdomen. The fluid surrounds loops of large and small bowel. The patient had been scheduled for an ultrasound-guided paracentesis. At Dr. Rivera's recommendation, the paracentesis was performed under CT guidance instead of ultrasound. Impression: Ascites Interpreted and Authenticated by: Hipolito Chavarria 08/21/17
--- NOTE | 2017-08-21 15:05 | Internal Med Progress Note ---
Medical - PN: Subj Patient information: Note initiated : 08/21/17 at 3:03 pm Service Date, if different from initiated Date: [] Patient: Amada Herron 81 y/o F admitted on 08/17/17 for Altered LOC. Chief Complaint: [] Interval history: Aug 16 The patient's 84-year-old female with a history of osteoarthritis, hypothyroidism, type 2 diabetes mellitus, hypertension who presents today from home via EMS with changes in mental status. History is obtained in speaking with Dr. Machado from the emergency department, and reviewing old medical records.. The patient's unable to provide any history. Apparently at baseline the patient is mostly nonambulatory, it appears due to osteoarthritis and morbid obesity, but is able to transfer into a power scooter , and functions well at home where she lives with her son who is a caregiver. Proximally 7:00-8:00 PM last night, her son noted that her speech became incoherent, she was babbling, having difficulty speaking and with garbled words at time. It is unclear if this was a word finding problem or an articulation problem. She also became much more weak, was unable to transfer to her scooter. Her son was concerned that she may have consumed extra dose of her opioid pain medication. He continued to monitor her. She did not improve, she presents to the emergency department early this morning via EMS for altered mental status. When she arrived she is a lethargic , initially poorly responsive. She received Narcan en route via EMS with no significant change. She was able to wake time and interactive with questions, at other times not so much, with a waxing and waning attention in mental status. She spent most of the overnight in the ED sleeping. She would arouse and respond somewhat, but was not back to her usual status. Laboratory evaluation was notable for white count of 13.8. She has stable renal function and creatinine 1.2 (CKD stage III). Chest x-ray showed evidence of volume overload/congestive heart failure. Urinalysis with proteinuria and ketonuria but no evidence of urinary tract infection. Head CT was with chronic white matter changes, nothing acute. I was contacted to hospitalize the patient for further evaluation. During my examination, the patient felt warm, sound to have a temperature of 100.8, having been normal actually one hour previously. Patient is being hospitalized for further evaluation of encephalopathy, suspected occult infection.she is attempting to reply at times, but does not appear to track with conversations. She does not meaningfully follow commands. Aug 17 During the day yesterday, the patient became progressively more arousable. He was able to assist in some care. Was able to give a few responses. She recently had a oxycodone prescription filled, the bottle was empty. This was brought in by family. Now looking like she may have had opioid toxicity, even though she did not initially respond to Narcan. However also febrile 102.5 upon arrival on the floor yesterday. Ceftriaxone was started. Fevers of tapered off. Cultures are negative to date. Patient appeared quite dehydrated as well, though mild CHF reported on chest x-ray. Responded to IV fluids. This morning seems to be in no distress. However did have abrupt decline in pulse from 80s to 40s and occasionally into the 30s with a sinus bradycardia. EKG shows no injury pattern, does show bradycardia. Pulse picked up in the 50s when aroused. Patient denies any complaints, though unclear if she is fully tracking with questions still. Aug 18 Alerts early this afternoon. Able to carry on fairly good conversation, though tends to perseverate a bit on what her son has not been in contact (he's been in contact with case management) and unclear as to why she went up in the hospital. She stated she may have taken extra pain medications on occasion in the past, though tries to be careful with that. She was not sure why her pill bottle filled last week with 30 tablets would be empty. No fever, chills. She had nausea yesterday, seems to be resolved. No dyspnea. Good urine output. August 19 Seen at bedside along with RN. Continues to slowly improve. Relates that she had been starting to wean off oxycodone and was starting on tramadol as an alternative, however this does not seem to explain why her supply of 30 oxycodone tablets were gone within a week. Notes that she been having some headaches after a fall in April when she had her head, however those seem to have resolved now. Also notes sometimes she has trouble with word finding and getting her words out. This morning, she had significant coughing after trying to eat breakfast. Concerned that she may have had some aspiration. White count is rising, however she has stable vitals, no further fever and no source. Chest x-ray yesterday looked good. Dumont is draining clear urine and follow-up UA is pending. August 20 Continues to have intermittent nausea, says carmen kilgore helps. Still some tangentiality with thoughts and speech. This may be her baseline, suspect that there are some underlying cognitive impairment. White count still elevated, low -grade temp. Some left lower quadrant pain on exam today, we'll evaluate for abdominal process with CT. aug 21 patient seen and examined, no acute overnight events, sitting comfortably in the bed, wanting to eat breakfast. She denied any chest pain, no shortness of breath. Still has some soreness in the abdomen, speech and thought process appeared clear. However, today is my first day and I'm not able to a certain how she was yesterday. Patient is able to tell me that she did not take too many pills. CT scan of the abdomen reviewed, on IV antibiotics ceftriaxone, Flagyl added. CT also showed ascites, which was tapped, fluid appears to be exudative in nature. Likely reactive to the bowel process. Gram stain is negative. Cultures pending. However, in light of ongoing antibiotics. I doubt if microbiology will grow anything. her potassium is low, which has been aggressively replaced She will likely need GI evaluation/ follow up as outpatient. No GI consult available at present. Pertinent ROS: Denies headache, dizziness Denies chest pain, palpitations Denies cough or shortness of breath mild abdominal pain, mild nausea no vomiting. - Constitutional Vitals: Vital Signs Temp Pulse Resp BP Pulse Ox 98.5 F 64 16 181/89 99 08/21/17 12:00 08/20/17 08:00 08/21/17 12:00 08/21/17 12:00 08/21/17 12:00 Period Temp Pulse Resp BP Sys/King Pulse Ox Last 24 Hr 97.8 F-98.8 F 16-24 143-190/67-95 93-99 Intake and Output 08/21/17 08/21/17 08/21/17 05:59 13:59 21:59 Intake Total 380 / 380 340 / 340 100 / 100 Output Total 1400 / 1400 501 / 501 Balance -1020 / -1020 -161 / -161 100 / 100 Intake & Output: Intake & Output 08/21/17 08/21/1708/21/18 05:59 13:59 21:59 Intake Total 380 / 380 340 / 340 100 / 100 Output Total 1400 / 1400 501 / 501 Balance -1020 / -1020 -161 / -161 100 / 100 Intake: IV 100 / 100 100 / 100 100 / 100 Oral 240 / 240 GI Tube Flush 280 / 280 Output: Void Amount 450 / 450 500 / 500 Urine/Stool Mix 950 / 950 1 / 1 Other: Meal Lunch Percent of Meal Consumed 25% Feeding Ability Independent Stool Size Small Small Stool Color Brown Brown Stool Consistency Soft Liquid # Voids 1 # Bowel Movements 1 # of times incontinent of 1 Bowels Exam: Constitutional; Afebrile, cooperative, alert, not in distress. Eyes- No icterus, , No periorbital swelling Ears- Ext ear normal, hearing normal to conversation. Neck- Midline trachea, supple Respiratory system: Air Entry equal on both sides, No crackles or wheezing, no rhonchi. CVS- Rate rhythm regular, S1,S2 heard, no gallop, no rub. Abdomen- Soft nontender abdomen, no organomegaly, no tenderness, no guarding or rigidity, large pannus RODEO CLOWN- AOOx2, moving all extremities, no gross focal deficit noted. Medical - PN: Obj Da - Labs CBC & Chem 7: 08/21/17 05:17 08/21/17 03:50 Labs: Abnormal Lab Results 08/21/17 08/21/17 08/20/17 05:17 03:50 03:54 WBC 14.8 H RDW 16.3 H MPV 10.9 H Gran # 10.1 H [place] # (Auto) 1.1 H Potassium 2.7 L* 2.8 L* Calcium 8.5 L Phosphorus 2.5 L 1.7 L Magnesium 1.4 L AST 42 H ALT 48 H Lactate Dehydrogenase 276 H Albumin 3.0 L Triglycerides 153 H Urine Protein Urine Ketones Urine Occult Blood Urine RBC 08/20/17 08/19/17 08/19/17 03:54 11:50 03:50 WBC 14.7 H 16.3 H RDW 16.1 H 15.9 H MPV 10.7 H Gran # 10.5 H 12.2 H [place] # (Auto) 1.1 H 1.0 H Potassium Calcium Phosphorus Magnesium AST ALT Lactate Dehydrogenase Albumin Triglycerides Urine Protein >=500 A Urine Ketones 5/tr A Urine Occult Blood 0.2 A Urine RBC 32 H 08/19/17 03:50 WBC RDW MPV Gran # [place] # (Auto) Potassium 3.0 L Calcium Phosphorus Magnesium AST ALT Lactate Dehydrogenase Albumin Triglycerides Urine Protein Urine Ketones Urine Occult Blood Urine RBC Meds: Medications Acetaminophen (Tylenol) 650 mg PO Q6HP PRN PRN Reason: PAIN/FEVER > 101 Last Admin: 08/20/17 10:10 Dose: 650 mg Allopurinol (Zyloprim) 100 mg PO QDAY [facility] Last Admin: 08/21/17 09:12 Dose: 100 mg Aspirin (Ecotrin) 325 mg PO DAILY [facility] Last Admin: 08/21/17 09:11 Dose: 325 mg Ceftriaxone Sodium (Rocephin) 1 gm IV DAILY [facility] Last Admin: 08/21/17 09:20 Dose: 1 gm Cyanocobalamin (Vitamin B-12) 2,500 mcg PO DAILY [facility] Last Admin: 08/21/17 09:14 Dose: 2,500 mcg Dextrose (Dextrose 50%) 0 ml IV UD PRN PRN Reason: Hypoglycemia Diagnostic Test (Pha) (Accu-Chek) 1 each FS [facility] Last Admin: 08/21/17 11:32 Dose: 1 each Enoxaparin Sodium (Lovenox) 40 mg SQ DAILY [facility] Last Admin: 08/21/17 09:11 Dose: 40 mg Glucose (Insta-Glucose) 15 gm PO PRN PRN PRN Reason: Hypoglycemia Hydralazine HCl (Apresoline) 10 mg IV Q4HP PRN PRN Reason: Hypertension Acetaminophen (Ofirmev) 650 mg in 65 mls @ 130 mls/hr IV Q6HP PRN PRN Reason: PAIN/FEVER > 101 Last Infusion: 08/17/17 01:00 Dose: Infused Metronidazole (Flagyl) 500 mg in 100 mls @ 100 mls/hr IV Q8H [facility] Last Infusion: 08/21/17 14:57 Dose: Infused Insulin Human Lispro (Humalog) 0 unit SQ ACHS [facility] PRN Reason: Protocol Last Admin: 08/21/17 11:34 Dose: 2 unit Levothyroxine Sodium (Synthroid) 100 mcg PO ACB [facility] Last Admin: 08/21/17 08:39 Dose: 100 mcg Lisinopril (Zestril) 20 mg PO QDAY [facility] Last Admin: 08/21/17 09:12 Dose: 20 mg Naloxone HCl (Narcan) 0.1 mg IV Q2MIN PRN PRN Reason: Opiate Reversal Nifedipine (Procardia Xl) 60 mg PO DAILY [facility] Last Admin: 08/21/17 09:19 Dose: 60 mg Nifedipine (Procardia Xl) 30 mg PO HS [facility] Last Admin: 08/20/17 20:30 Dose: 30 mg Ondansetron HCl (Zofran) 4 mg IV Q4HP PRN PRN Reason: Nausea And Vomiting Last Admin: 08/18/17 09:07 Dose: 4 mg Sertraline HCl (Zoloft) 50 mg PO DAILY [facility] Last Admin: 08/21/17 09:08 Dose: 50 mg Medical - PN: A/P - Time Spent With Patient Total time spent is greater than 50% in coordination of care (as documented) at patient's floor/unit and/or counseling patient: - Narrative A/P Narrative: 81-year-old female with fairly abrupt change in mental status, now developing fever in the hospital. Acute encephalopathy: toxic vs infectious encephalopathy. : Clinically improving , CT head is neg. Plan: Continue with antibiotics. Follow-up cultures. monitor for now. Enteritis: Infectious:> on IV Rocephin and Flagyl, clinically improving monitor , will need colonoscopy with push enteroscopy, likely as outpatient as no inhouse GI available at this time. Ascitis: exudative in nature, likely from enteritis, reactionary, for now treat underyling etiology and monitor. Coughing with meals/aspiration risk. May have contributed to fever at presentation and increasing white count. Plan: Speech therapy evaluation and treat. Hypertension. On extended release nifedipine and lisinopril at home. Still running elevated blood pressures. Nifedipine dose increased, 30 mg at bedtime was added to 60 mg in the morning. Plan: Follow vitals, bp still high today, IV hydralaizine added prn for now, if bp remains, high will adjust dose of nifiedipine further. Hypokalemia, hypophosphatemia. Plan: Replete, repeawt labs pm Bradycardia. Improved, only intermittent HR to upper 50's at rest, increases appropriately with activity. Wonder if she has been having episodes of bradycardia at home, that may have contributed to her presentation. She did maintain adequate blood pressure with the low heart rate however. Plan: Can stop tele if remains stable, after K is normal. Type 2 diabetes mellitus. On metformin at home. Given acute illness, holding metformin. Plan: Hold metformin, slight scale insulin, Accu-Cheks, diabetic diet. Osteoarthritis with chronic opioid use for pain control. Plan: Holding opioids while mental status is altered/encephalopathic. Chronic kidney disease, stage III. Baseline creatinine 1.1, stable at 1.2. History of microalbuminuria in 2014, now with occult proteinuria. Plan: Continue with lisinopril, renal dose medications as needed, monitor renal function. Acquired hypothyroidism with history of thyroidectomy. On levothyroxine replacement at home. Plan: on levothyroxine, continue same. Disposition: Will likely need to go to rehabilitation. Appears living situation was tenuous prior to admit, she was living with her son. Can go to [facility] once electrolytes are corrected. Medical - PN: Qual - VTE Deep Vein Thrombosis/Pulmonary Embolism Present on Admission: No
[2017-08-21 18:04] LABS: Blood Urea Nitrogen 11 mg/dl (8-23)
[2017-08-21] MEDS ORDERED: POTASSIUM CHLORIDE 20 MEQ PACKET PO ONE (18:08)
[2017-08-22 05:28] LABS: Basophils # (Auto) 0 K/mcL (0.0-0.3); Basophils % (Auto) 0.2 % (0.0-2.0); Eosinophils # (Auto) 0.3 K/mcL (0.0-0.7); Eosinophils % (Auto) 1.8 % (0.0-7.0); Granulocytes % (Auto) 73.3 % (38.0-78.0); Lymphocytes # (Auto) 2.8 K/mcL (1.5-4.8); Lymphocytes % (Auto) 18.7 % (15.5-49.0); Mean Cell Volume 88.8 fL (80.0-100.0); Mean Corpuscular HGB Conc 32.3 g/dL (31.0-36.0); Mean Corpuscular Hemoglobin 28.6 pg (26.0-34.0); Monocytes # (Auto) 0.9 K/mcL (0.1-0.9); Platelet Count 244 K/mcL (140-440); RBC 4.96 M/mcL (4.00-5.20); Red Cell Distribution Width 16.5 % (11.5-14.5)
[2017-08-22] MEDS: metroNIDAZOLE 500 MG/100 ML BAG IV SCH ×3 (05:31→21:44)
[2017-08-22 05:55] LABS: ALT/SGPT 40 U/l (0-40); Albumin 3.8 gm/dL (3.2-5.2); Albumin/Globulin Ratio 1.2 (1.0-2.3); Alkaline Phosphatase 68 U/L (39-117); Bilirubin,Direct < 0.2 mg/dL (0.0-0.3); Blood Urea Nitrogen 10 mg/dl (8-23); Gamma Glutamyl Transpeptidase 15 U/L (5-36); Uric Acid 4.6 mg/dL (2.5-8.0)
[2017-08-22] MEDS: INSULIN LISPRO 1 UNIT/0.01 ML UNIT SQ SCH ×4 (07:21→20:55)
[2017-08-22] MEDS: LEVOTHYROXINE 100 MCG TABLET PO SCH (07:30)
[2017-08-22] MEDS: hydrALAZINE 20 MG/ML VIAL IV PRN ×2 (08:10→21:00)
[2017-08-22] MEDS ORDERED: POTASSIUM CHLORIDE 20 MEQ PACKET PO ONE (08:18)
[2017-08-22] MEDS ORDERED: POTASSIUM PHOSPHATE 40 MEQ in DEXTROSE 5% IN WATER 500 ML IV ONE (08:55)
[2017-08-22] MEDS: amLODIPine 10 MG TABLET PO SCH (09:44)
[2017-08-22] MEDS: ASPIRIN 325 MG ENTERIC COATED TABLET PO SCH (09:45)
[2017-08-22] MEDS: ALLOPURINOL 100 MG TABLET PO SCH (09:45)
[2017-08-22] MEDS: SERTRALINE 50 MG TABLET PO SCH (09:45)
[2017-08-22] MEDS: CYANOCOBALAMIN (VITAMIN B-12) 500 MCG TABLET PO SCH (09:45)
[2017-08-22] MEDS: LISINOPRIL 20 MG TABLET PO SCH (09:45)
[2017-08-22] MEDS: ENOXAPARIN 40 MG/0.4 ML SYRINGE SQ SCH (09:46)
[2017-08-22] MEDS: cefTRIAXone 1 GM VIAL IV SCH (09:47)
--- NOTE | 2017-08-22 13:53 | Internal Medicine Consult Note ---
Medical - CN: HPI - Data of Consult Patient: new to practice Consult date: 08/22/17 Requesting Physician: Dr. Cabrera Primary Care Provider: Sheyla Tabor - Consult Narrative Reason for consult: encephalopathy, ascites, diarrhea with abnormal CT History of present illness: Ms. Herron is a 81 year old F who was brought to ED by her son on 08/16/17 for mental status changes, felt to be due to a combination of opiate overdose vs infectious etiology (perhaps aspiration PNA). Since admission, she has been complaining of diarrhea up to 3 liquid BMs daily with incontinence and abdominal pain, particularly in the LLQ, not necessarily related to BM. Denies n /v, hematochezia or nocturnal stooling. CT revealed ascites with fluid analysis suggesting an exudative process (SAAG 0.6) and thickening of terminal ileum with scattered thickening of ileum and jejunum as well as rectum and distal descending colon. C difficile assay was negative. She denies any extraintestinal manifestations of IBD. History obtained from patient and nurse as patient's memory is poor. Prior to admission, she was immobile due to osteoarthritis and morbid obesity and was on chronic narcotics. She had a tendency toward constipation, which she treated with Miralax. She has been attempting to taper her oxycodone and use tramadol instead. She denies any NSAID use. CC: Keisha MAJANO unobtainable: due to mental status Medical - CN: PMH Medical history: Chronic kidney disease, stage III (moderate) Microalbuminuria Hypothyroidism, acquired Hyperlipidemia Hypertension Diabetes mellitus, type II Vitamin B 12 deficiency Overactive bladder Osteoporosis Osteoarthritis Obesity Gout Goiter Glaucoma Dysmetabolic syndrome X Basal cell carcinoma Aortic aneurysm Surgical history: Thyroidectomy, tonsillectomy, hysterectomy, cholecystectomy Family history: reviewed and not pertinent Pertinent family history: Family history of alcoholic liver disease in father Social history: Lives with son. 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 Medical - CN: Meds Home Medications Medication Instructions Recorded Confirmed Type acetaminophen 500 mg tablet 1,000 mg PO DAILY tab 02/26/15 08/16/17 History allopurinol 100 mg tablet 100 mg PO QDAY tab 02/26/15 08/16/17 History aspirin 325 mg tablet 325 mg PO QDAY tab 02/26/15 08/16/17 History calcium carbonate 500 mg calcium 500 mg PO TID 02/26/15 08/16/17 History (1,250 mg) tablet cholecalciferol (vitamin D3) 2,000 2,000 unit PO QDAY tab 02/26/15 08/16/17 History unit tablet cyanocobalamin (vit B-12) 2,500 2,500 mcg SUBLINGUAL QDAY tab 02/26/15 History mcg sublingual tablet levothyroxine 100 mcg tablet 100 mcg PO QDAY tab 02/26/15 08/16/17 History lisinopril 20 mg tablet 20 mg PO QDAY tab 02/26/15 08/16/17 History metformin 500 mg tablet 500 mg PO QDAY tab 02/26/15 08/16/17 History nifedipine ER 60 mg 60 mg PO QDAY tab 02/26/15 08/16/17 History tablet,extended release 24 hr omega-3 fatty acids-fish oil 684 1 cap PO QDAY 02/26/15 08/16/17 History mg-1,200 mg capsule,delayed release oxycodone-acetaminophen 5 mg-325 1 - 2 tab PO Q4H tab 02/26/15 08/16/17 History mg tablet polyethylene glycol 3350 17 17 g PO QDAY each 03/27/15 08/16/17 History gram/dose oral powder Sertraline HCl [Zoloft] 50 mg PO DAILY 08/16/17 08/16/17 History traMADol HCL [Ultram] 50 - 100 mg PO Q4H 08/16/17 08/16/17 History Allergies Allergy/AdvReac Type Severity Reaction Status Date / Time Iodinated Contrast- Oral and Allergy Severe Shortness Verified 08/22/17 11:21 IV Dye of Breath/Hives phenazopyridine Allergy Mild Rash Verified 08/21/17 11:45 [From Pyridium] ampicillin Allergy Unknown Unknown Verified 08/22/17 11:21 levothyroxine sodium Allergy Unknown Unknown Verified 03/27/15 08:29 [From Synthroid] Medical - CN: Exam - Constitutional Vitals: Temp Pulse Resp BP Pulse Ox 99.2 F H 70 18 175/89 99 08/22/17 12:30 08/22/17 12:30 08/22/17 12:30 08/22/17 12:30 08/22/17 12:30 General appearance: cooperative, morbidly obese, no acute distress - Head Head exam: Present: atraumatic, normal inspection - Neck Neck exam: Present: normal inspection. Absent: thyromegaly Additional comments: scar consistent with surgical history - Respiratory Respiratory exam: Present: normal respiratory exam, CTAB. Absent: rhonchi, wheezes - Cardiovascular Cardiovascular exam: Present: normal rate and rhythm. Absent: systolic murmur - GI/Abdominal GI/Abdominal exam: Present: normal bowel sounds, soft. Absent: distended, mass , organomegaly, tenderness - Extremities Exam Extremities exam: Present: normal inspection, Foot pink and warm. Absent: pedal edema - Neurological Exam Neurological exam: Present: alert - Psychiatric Psychiatric exam: Present: normal affect, normal mood Medical - CN: Result - Labs CBC & Chem 7: 08/22/17 04:00 08/22/17 04:00 Labs: Short CBC 08/22/17 Range/Units 04:00 WBC 14.9 H (4.5-11.0) K/mcL Hgb 14.2 (12.0-15.0) g/dL Hct 44.1 (36.0-48.0) % Plt Count 244 (140-440) K/mcL BMP 08/21/17 08/22/17 16:05 04:00 Sodium 138 141 Potassium 3.8 3.6 Chloride 100 101 Carbon Dioxide 28 26 BUN 11 10 Creatinine 0.9 0.9 Glucose 121 H 117 H Calcium 8.6 9.1 Liver Function 08/22/17 Range/Units 04:00 Total Bilirubin 0.3 (0.0-1.0) mg/dL Direct Bilirubin < 0.2 (0.0-0.3) mg/dL GGT 15 (5-36) U/L AST 24 (0-37) U/l ALT 40 (0-40) U/l Alkaline Phosphatase 68 (39-117) U/L Albumin 3.8 (3.2-5.2) gm/dL Medical - CN: A/P (1) Diarrhea Problem details: We will further evaluate her diarrhea, ascites, and abnormal CT by proceeding with colonoscopy. Crohn's disease would be a unifying diagnosis. If colonoscopy is unremarkable, EGD with small bowel biopsy to check for other protein losing enteropathy would be reasonable. Will prep with split dose Colyte; she may have a protein shake this evening. Status: Acute (2) Ascites Status: Acute - Narrative A/P Narrative: May be related to jejunoileitis. Unlikely to be related to portal hypertension with SAAG <1.
[2017-08-22] MEDS: METOPROLOL TARTRATE 25 MG TABLET PO SCH ×2 (16:25→20:56)
--- NOTE | 2017-08-22 16:25 | Internal Med Progress Note ---
Medical - PN: Subj Patient information: Note initiated : 08/22/17 at 4:24 pm Service Date, if different from initiated Date: [] Patient: Amada Herron 81 y/o F admitted on 08/17/17 for Altered LOC. Chief Complaint: [] Interval history: Aug 16 The patient's 84-year-old female with a history of osteoarthritis, hypothyroidism, type 2 diabetes mellitus, hypertension who presents today from home via EMS with changes in mental status. History is obtained in speaking with Dr. Machado from the emergency department, and reviewing old medical records.. The patient's unable to provide any history. Apparently at baseline the patient is mostly nonambulatory, it appears due to osteoarthritis and morbid obesity, but is able to transfer into a power scooter , and functions well at home where she lives with her son who is a caregiver. Proximally 7:00-8:00 PM last night, her son noted that her speech became incoherent, she was babbling, having difficulty speaking and with garbled words at time. It is unclear if this was a word finding problem or an articulation problem. She also became much more weak, was unable to transfer to her scooter. Her son was concerned that she may have consumed extra dose of her opioid pain medication. He continued to monitor her. She did not improve, she presents to the emergency department early this morning via EMS for altered mental status. When she arrived she is a lethargic , initially poorly responsive. She received Narcan en route via EMS with no significant change. She was able to wake time and interactive with questions, at other times not so much, with a waxing and waning attention in mental status. She spent most of the overnight in the ED sleeping. She would arouse and respond somewhat, but was not back to her usual status. Laboratory evaluation was notable for white count of 13.8. She has stable renal function and creatinine 1.2 (CKD stage III). Chest x-ray showed evidence of volume overload/congestive heart failure. Urinalysis with proteinuria and ketonuria but no evidence of urinary tract infection. Head CT was with chronic white matter changes, nothing acute. I was contacted to hospitalize the patient for further evaluation. During my examination, the patient felt warm, sound to have a temperature of 100.8, having been normal actually one hour previously. Patient is being hospitalized for further evaluation of encephalopathy, suspected occult infection.she is attempting to reply at times, but does not appear to track with conversations. She does not meaningfully follow commands. Aug 17 During the day yesterday, the patient became progressively more arousable. He was able to assist in some care. Was able to give a few responses. She recently had a oxycodone prescription filled, the bottle was empty. This was brought in by family. Now looking like she may have had opioid toxicity, even though she did not initially respond to Narcan. However also febrile 102.5 upon arrival on the floor yesterday. Ceftriaxone was started. Fevers of tapered off. Cultures are negative to date. Patient appeared quite dehydrated as well, though mild CHF reported on chest x-ray. Responded to IV fluids. This morning seems to be in no distress. However did have abrupt decline in pulse from 80s to 40s and occasionally into the 30s with a sinus bradycardia. EKG shows no injury pattern, does show bradycardia. Pulse picked up in the 50s when aroused. Patient denies any complaints, though unclear if she is fully tracking with questions still. Aug 18 Alerts early this afternoon. Able to carry on fairly good conversation, though tends to perseverate a bit on what her son has not been in contact (he's been in contact with case management) and unclear as to why she went up in the hospital. She stated she may have taken extra pain medications on occasion in the past, though tries to be careful with that. She was not sure why her pill bottle filled last week with 30 tablets would be empty. No fever, chills. She had nausea yesterday, seems to be resolved. No dyspnea. Good urine output. August 19 Seen at bedside along with RN. Continues to slowly improve. Relates that she had been starting to wean off oxycodone and was starting on tramadol as an alternative, however this does not seem to explain why her supply of 30 oxycodone tablets were gone within a week. Notes that she been having some headaches after a fall in April when she had her head, however those seem to have resolved now. Also notes sometimes she has trouble with word finding and getting her words out. This morning, she had significant coughing after trying to eat breakfast. Concerned that she may have had some aspiration. White count is rising, however she has stable vitals, no further fever and no source. Chest x-ray yesterday looked good. Dumont is draining clear urine and follow-up UA is pending. August 20 Continues to have intermittent nausea, says carmen kilgore helps. Still some tangentiality with thoughts and speech. This may be her baseline, suspect that there are some underlying cognitive impairment. White count still elevated, low -grade temp. Some left lower quadrant pain on exam today, we'll evaluate for abdominal process with CT. aug 21 patient seen and examined, no acute overnight events, sitting comfortably in the bed, wanting to eat breakfast. She denied any chest pain, no shortness of breath. Still has some soreness in the abdomen, speech and thought process appeared clear. However, today is my first day and I'm not able to a certain how she was yesterday. Patient is able to tell me that she did not take too many pills. CT scan of the abdomen reviewed, on IV antibiotics ceftriaxone, Flagyl added. CT also showed ascites, which was tapped, fluid appears to be exudative in nature. Likely reactive to the bowel process. Gram stain is negative. Cultures pending. However, in light of ongoing antibiotics. I doubt if microbiology will grow anything. her potassium is low, which has been aggressively replaced She will likely need GI evaluation/ follow up as outpatient. No GI consult available at present. Aug 22 patient seen and examined, noted overnight events, significant to be in the bed. Blood pressure elevated, it seems that the long-acting release. Medications are not being absorbed. Patient is able to tolerate breakfast. Does not have much nausea today. Dr. JOHNSON is available and EPI Sandoval was available for GI consult, they will evaluate the patient. I believe the plan is for colonoscopy, likely tomorrow She remains on broad-spectrum antibiotics is afebrile Potassium level better today. Low phosphate noted, replaced. Patient has some runs of nonsustained V. tach, platelets are stable. Start the patient on beta blockers. Metoprolol 25 mg twice a day for now. Blood pressure is high, so this should help We'll also stop nifedipine long-acting medication and start the patient on amlodipine 10 mg once a day Pertinent ROS: Denies headache, dizziness Denies chest pain, palpitations Denies cough or shortness of breath Denies abdominal pain, nausea or vomiting. - Constitutional Vitals: Vital Signs Temp Pulse Resp BP Pulse Ox 98.8 F 87 18 174/97 97 08/22/17 15:52 08/22/17 15:52 08/22/17 15:52 08/22/17 15:52 08/22/17 15:52 Period Temp Pulse Resp BP Sys/King Pulse Ox Last 24 Hr 98.3 F-99.6 F 70-87 16-18 124-194/58-106 96-100 Intake and Output 08/22/17 08/22/17 08/22/17 05:59 13:59 21:59 Intake Total 940 / 940 98 / 98 609.0909 / 609.0909 Output Total 1999 Balance -1060 / -1060 95 / 95 608.0909 / 608.0909 Intake & Output: Intake & Output 08/22/17 08/22/17 08/22/17 05:59 13:59 21:59 Intake Total 940 / 940 98 / 98 609.0909 / 609.0909 Output Total 1999 Balance -1060 / -1060 95 / 95 608.0909 / 608.0909 Intake: IV 100 / 100 98 / 98 609.0909 / 609.0909 Potassium Phosphate 40 Meq In 509.0909 / 509.0909 Dextrose 5% in Water 500 ml @ 127.273 mls/hr IV ONCE ONE Rx#: [id number] GI Tube Flush 840 / 840 Output: Urine/Stool Mix 1999 Other: Stool Size Moderate Small Stool Color Brown Brown Stool Consistency Loose Watery Exam: Constitutional; Afebrile, cooperative, alert, not in distress. Eyes- No icterus, , No periorbital swelling Ears- Ext ear normal, hearing normal to conversation. Neck- Midline trachea, supple Respiratory system: Air Entry equal on both sides, No crackles or wheezing, no rhonchi. CVS- Rate rhythm regular, S1,S2 heard, no gallop, no rub. Abdomen- Soft nontender abdomen, no organomegaly, no tenderness, no guarding or rigidity, [employer]- AOOx3, moving all extremities, no gross focal deficit noted. Medical - PN: Obj Da - Labs CBC & Chem 7: 08/22/17 04:00 08/22/17 04:00 Labs: Abnormal Lab Results 08/22/17 08/22/17 08/21/17 04:00 04:00 16:05 WBC 14.9 H RDW 16.5 H MPV 10.6 H Gran # 10.9 H [place] # (Auto) Potassium Glucose 117 H 121 H Calcium Phosphorus 1.4 L Magnesium AST ALT Lactate Dehydrogenase Albumin Triglycerides 08/21/17 08/21/17 08/20/17 05:17 03:50 03:54 WBC 14.8 H RDW 16.3 H MPV 10.9 H Gran # 10.1 H [place] # (Auto) 1.1 H Potassium 2.7 L* 2.8 L* Glucose Calcium 8.5 L Phosphorus 2.5 L 1.7 L Magnesium 1.4 L AST 42 H ALT 48 H Lactate Dehydrogenase 276 H Albumin 3.0 L Triglycerides 153 H 08/20/17 03:54 WBC 14.7 H RDW 16.1 H MPV Gran # 10.5 H [place] # (Auto) 1.1 H Potassium Glucose Calcium Phosphorus Magnesium AST ALT Lactate Dehydrogenase Albumin Triglycerides Meds: Medications Acetaminophen (Tylenol) 650 mg PO Q6HP PRN PRN Reason: PAIN/FEVER > 101 Last Admin: 08/20/17 10:10 Dose: 650 mg Allopurinol (Zyloprim) 100 mg PO QDAY [facility] Last Admin: 08/22/17 09:45 Dose: 100 mg Amlodipine Besylate (Norvasc) 10 mg PO DAILY [facility] Last Admin: 08/22/17 09:44 Dose: 10 mg Aspirin (Ecotrin) 325 mg PO DAILY [facility] Last Admin: 08/22/17 09:45 Dose: 325 mg Ceftriaxone Sodium (Rocephin) 1 gm IV DAILY [facility] Last Admin: 08/22/17 09:47 Dose: 1 gm Cyanocobalamin (Vitamin B-12) 2,500 mcg PO DAILY [facility] Last Admin: 08/22/17 09:45 Dose: 2,500 mcg Dextrose (Dextrose 50%) 0 ml IV UD PRN PRN Reason: Hypoglycemia Diagnostic Test (Pha) (Accu-Chek) 1 each FS ACHS [facility] Last Admin: 08/22/17 11:43 Dose: 1 each Enoxaparin Sodium (Lovenox) 40 mg SQ DAILY [facility] Last Admin: 08/22/17 09:46 Dose: 40 mg Glucose (Insta-Glucose) 15 gm PO PRN PRN PRN Reason: Hypoglycemia Hydralazine HCl (Apresoline) 10 mg IV Q4HP PRN PRN Reason: Hypertension Last Admin: 08/22/17 08:10 Dose: 10 mg Acetaminophen (Ofirmev) 650 mg in 65 mls @ 130 mls/hr IV Q6HP PRN PRN Reason: PAIN/FEVER > 101 Last Infusion: 08/17/17 01:00 Dose: Infused Metronidazole (Flagyl) 500 mg in 100 mls @ 100 mls/hr IV Q8H [facility] Last Infusion: 08/22/17 14:44 Dose: Infused Insulin Human Lispro (Humalog) 0 unit SQ ACHS [facility] PRN Reason: Protocol Last Admin: 08/22/17 11:44 Dose: Not Given Levothyroxine Sodium (Synthroid) 100 mcg PO ACB [facility] Last Admin: 08/22/17 07:30 Dose: 100 mcg Lisinopril (Zestril) 20 mg PO QDAY [facility] Last Admin: 08/22/17 09:45 Dose: 20 mg Metoprolol Tartrate (Lopressor) 25 mg PO BID [facility] Naloxone HCl (Narcan) 0.1 mg IV Q2MIN PRN PRN Reason: Opiate Reversal Ondansetron HCl (Zofran) 4 mg IV Q4HP PRN PRN Reason: Nausea And Vomiting Last Admin: 08/18/17 09:07 Dose: 4 mg Polyethylene Glycol/Electrolytes (Golytely) 4,000 ml PO ONCE ONE Stop: 08/22/17 19:01 Sertraline HCl (Zoloft) 50 mg PO DAILY [facility] Last Admin: 08/22/17 09:45 Dose: 50 mg Medical - PN: A/P - Time Spent With Patient Total time spent is greater than 50% in coordination of care (as documented) at patient's floor/unit and/or counseling patient: - Narrative A/P Narrative: 81-year-old female with fairly abrupt change in mental status, now developing fever in the hospital. Acute encephalopathy: toxic vs infectious encephalopathy. : Clinically improving , CT head is neg. Plan: Resolved, Continue with antibiotics. Follow-up cultures. monitor for now. Enteritis: Infectious:> on IV Rocephin and Flagyl, clinically improving monitor , will need colonoscopy with push enteroscopy, Dr dobson to evaluate and possible colonoscopy planned Ascitis: exudative in nature, likely from enteritis, reactionary, for now treat underyling etiology and monitor. appreciate gi input. Coughing with meals/aspiration risk. May have contributed to fever at presentation and increasing white count. Plan: Speech therapy evaluation and treat. awaiting consult note. Hypertension. On extended release nifedipine and lisinopril at home. Still running elevated blood pressures. Nifedipine dose increased, 30 mg at bedtime was added to 60 mg in the morning. Plan: bp still high, d/c nifedipine, start amlodipine, start on po metoprolol. IV hydralazine prn. On lisinopril 20, plan to start diuretic next . Hypokalemia, hypophosphatemia. Plan: Replete, Bradycardia. Improved, only intermittent HR to upper 50's at rest, increases appropriately with activity. Wonder if she has been having episodes of bradycardia at home, that may have contributed to her presentation. She did maintain adequate blood pressure with the low heart rate however. Plan: Can stop tele if remains stable, after K is normal. Type 2 diabetes mellitus. On metformin at home. Given acute illness, holding metformin. Plan: Hold metformin, slight scale insulin, Accu-Cheks, diabetic diet. Osteoarthritis with chronic opioid use for pain control. Plan: Holding opioids while mental status is altered/encephalopathic. Chronic kidney disease, stage III. Baseline creatinine 1.1, stable at 1.2. History of microalbuminuria in 2015, now with occult proteinuria. Plan: Continue with lisinopril, renal dose medications as needed, monitor renal function. Acquired hypothyroidism with history of thyroidectomy. On levothyroxine replacement at home. Plan: on levothyroxine, continue same. Disposition: Will likely need to go to rehabilitation. Appears living situation was tenuous prior to admit, she was living with her son. [facility] go [facility] once electrolytes are corrected. Medical - PN: Qual - VTE Deep Vein Thrombosis/Pulmonary Embolism Present on Admission: No
[2017-08-22] MEDS: ONDANSETRON 4 MG/2 ML VIAL IV PRN (18:52)
[2017-08-22] MEDS ORDERED: PEG 3350/NA SULF,BICARB,CL/KCL 4,000 ML ORAL.SOL PO ONE (19:00)
[2017-08-23] MEDS: metroNIDAZOLE 500 MG/100 ML BAG IV SCH ×3 (05:35→21:43)
[2017-08-23 05:45] LABS: Appearance,Urine CLEAR; Bacteria,Urine 0 /hpf (0); Bilirubin,Urine NEG (NEG); Color,Urine YELLOW; Glucose,Urine (UA) NEGATIVE (NEG); Leukocyte Esterase,Urine NEG /uL (NEG); Mucus,Urine FEW /hpf (0); Protein,Urine >=500 mg/dL (NEG); Specific Gravity,Urine 1.009 (1.000-1.035); Urine Blood 0.03 mg/dL (<0.03); Urine Hyaline Cast 7 /lpf (0-2); Urine RBC 2 /hpf (0-1); Urine Squamous Epithelial Cell 1 /hpf (0-4); Urine Transitional Epi Cells < 1 /hpf (0-2); Urine WBC < 1 /hpf (0-4); Urobilinogen,Urine NEG (NEG)
[2017-08-23 06:03] LABS: Basophils # (Auto) 0.1 K/mcL (0.0-0.3); Basophils % (Auto) 0.3 % (0.0-2.0); Eosinophils # (Auto) 0.2 K/mcL (0.0-0.7); Eosinophils % (Auto) 1.4 % (0.0-7.0); Granulocytes % (Auto) 70.8 % (38.0-78.0); Lymphocytes % (Auto) 19.5 % (15.5-49.0); Mean Corpuscular HGB Conc 32.4 g/dL (31.0-36.0); Mean Corpuscular Hemoglobin 28.8 pg (26.0-34.0); Monocytes # (Auto) 1.2 K/mcL (0.1-0.9); Platelet Count 207 K/mcL (140-440); Red Cell Distribution Width 16.7 % (11.5-14.5)
[2017-08-23 06:11] LABS: ALT/SGPT 30 U/l (0-40); Albumin 3.7 gm/dL (3.2-5.2); Albumin/Globulin Ratio 1.2 (1.0-2.3); Alkaline Phosphatase 66 U/L (39-117); Bilirubin,Direct < 0.2 mg/dL (0.0-0.3); Blood Urea Nitrogen 10 mg/dl (8-23); Gamma Glutamyl Transpeptidase 14 U/L (5-36); Uric Acid 4.2 mg/dL (2.5-8.0)
[2017-08-23] MEDS: INSULIN LISPRO 1 UNIT/0.01 ML UNIT SQ SCH ×4 (07:30→21:13)
--- NOTE | 2017-08-23 08:36 | XRay Report ---
HISTORY: Reason for Exam:cough FINDINGS: There is a 5 mm granuloma laterally in the right mid thorax and another 5 mm granuloma laterally in the right lower lobe. These are unchanged since 08/18/17. The lungs are otherwise clear. The heart size and pulmonary vasculature are normal. The aorta is tortuous. There is an old healed fracture in the proximal right humerus. IMPRESSION: Old granulomatous disease and no acute abnormality Interpreted and Authenticated by: Hipolito Chavarria 08/23/17
[2017-08-23] MEDS: ENOXAPARIN 40 MG/0.4 ML SYRINGE SQ SCH (10:36)
[2017-08-23] MEDS: amLODIPine 10 MG TABLET PO SCH (10:37)
[2017-08-23] MEDS: CYANOCOBALAMIN (VITAMIN B-12) 500 MCG TABLET PO SCH (10:37)
[2017-08-23] MEDS: LISINOPRIL 20 MG TABLET PO SCH (10:37)
[2017-08-23] MEDS: METOPROLOL TARTRATE 25 MG TABLET PO SCH ×2 (10:37→21:43)
[2017-08-23] MEDS: ASPIRIN 325 MG ENTERIC COATED TABLET PO SCH (10:37)
[2017-08-23] MEDS: SERTRALINE 50 MG TABLET PO SCH (10:37)
[2017-08-23] MEDS: ALLOPURINOL 100 MG TABLET PO SCH (10:37)
[2017-08-23] MEDS: LEVOTHYROXINE 100 MCG TABLET PO SCH (10:44)
[2017-08-23] MEDS: cefTRIAXone 1 GM VIAL IV SCH (10:44)
[2017-08-23] MEDS ORDERED: KETAMINE 10 MG/ML ML IV PRN (11:54)
[2017-08-23] MEDS ORDERED: PROPOFOL 200 MG/20 ML VIAL IV SCH (12:00)
[2017-08-23] MEDS ORDERED: MIDAZOLAM 2 MG/2 ML VIAL IV SCH (12:00)
[2017-08-23] MEDS ORDERED: PROPOFOL 20 ML IV ONE (13:45)
[2017-08-23] MEDS ORDERED: MIDAZOLAM 2 MG/2 ML VIAL ONE (13:45)
--- NOTE | 2017-08-23 17:19 | Internal Med Progress Note ---
Medical - PN: Subj Patient information: Note initiated : 08/23/17 at 5:17 pm Service Date, if different from initiated Date: [] Patient: Amada Herron 81 y/o F admitted on 08/17/17 for Altered LOC. Chief Complaint: [] Interval history: Aug 16 The patient's 84-year-old female with a history of osteoarthritis, hypothyroidism, type 2 diabetes mellitus, hypertension who presents today from home via EMS with changes in mental status. History is obtained in speaking with Dr. Machado from the emergency department, and reviewing old medical records.. The patient's unable to provide any history. Apparently at baseline the patient is mostly nonambulatory, it appears due to osteoarthritis and morbid obesity, but is able to transfer into a power scooter , and functions well at home where she lives with her son who is a caregiver. Proximally 7:00-8:00 PM last night, her son noted that her speech became incoherent, she was babbling, having difficulty speaking and with garbled words at time. It is unclear if this was a word finding problem or an articulation problem. She also became much more weak, was unable to transfer to her scooter. Her son was concerned that she may have consumed extra dose of her opioid pain medication. He continued to monitor her. She did not improve, she presents to the emergency department early this morning via EMS for altered mental status. When she arrived she is a lethargic , initially poorly responsive. She received Narcan en route via EMS with no significant change. She was able to wake time and interactive with questions, at other times not so much, with a waxing and waning attention in mental status. She spent most of the overnight in the ED sleeping. She would arouse and respond somewhat, but was not back to her usual status. Laboratory evaluation was notable for white count of 13.8. She has stable renal function and creatinine 1.2 (CKD stage III). Chest x-ray showed evidence of volume overload/congestive heart failure. Urinalysis with proteinuria and ketonuria but no evidence of urinary tract infection. Head CT was with chronic white matter changes, nothing acute. I was contacted to hospitalize the patient for further evaluation. During my examination, the patient felt warm, sound to have a temperature of 100.8, having been normal actually one hour previously. Patient is being hospitalized for further evaluation of encephalopathy, suspected occult infection.she is attempting to reply at times, but does not appear to track with conversations. She does not meaningfully follow commands. Aug 17 During the day yesterday, the patient became progressively more arousable. He was able to assist in some care. Was able to give a few responses. She recently had a oxycodone prescription filled, the bottle was empty. This was brought in by family. Now looking like she may have had opioid toxicity, even though she did not initially respond to Narcan. However also febrile 102.5 upon arrival on the floor yesterday. Ceftriaxone was started. Fevers of tapered off. Cultures are negative to date. Patient appeared quite dehydrated as well, though mild CHF reported on chest x-ray. Responded to IV fluids. This morning seems to be in no distress. However did have abrupt decline in pulse from 80s to 40s and occasionally into the 30s with a sinus bradycardia. EKG shows no injury pattern, does show bradycardia. Pulse picked up in the 50s when aroused. Patient denies any complaints, though unclear if she is fully tracking with questions still. Aug 18 Alerts early this afternoon. Able to carry on fairly good conversation, though tends to perseverate a bit on what her son has not been in contact (he's been in contact with case management) and unclear as to why she went up in the hospital. She stated she may have taken extra pain medications on occasion in the past, though tries to be careful with that. She was not sure why her pill bottle filled last week with 30 tablets would be empty. No fever, chills. She had nausea yesterday, seems to be resolved. No dyspnea. Good urine output. August 19 Seen at bedside along with RN. Continues to slowly improve. Relates that she had been starting to wean off oxycodone and was starting on tramadol as an alternative, however this does not seem to explain why her supply of 30 oxycodone tablets were gone within a week. Notes that she been having some headaches after a fall in April when she had her head, however those seem to have resolved now. Also notes sometimes she has trouble with word finding and getting her words out. This morning, she had significant coughing after trying to eat breakfast. Concerned that she may have had some aspiration. White count is rising, however she has stable vitals, no further fever and no source. Chest x-ray yesterday looked good. Fermin is draining clear urine and follow-up UA is pending. August 20 Continues to have intermittent nausea, says carmen kilgore helps. Still some tangentiality with thoughts and speech. This may be her baseline, suspect that there are some underlying cognitive impairment. White count still elevated, low -grade temp. Some left lower quadrant pain on exam today, we'll evaluate for abdominal process with CT. aug 21 patient seen and examined, no acute overnight events, sitting comfortably in the bed, wanting to eat breakfast. She denied any chest pain, no shortness of breath. Still has some soreness in the abdomen, speech and thought process appeared clear. However, today is my first day and I'm not able to a certain how she was yesterday. Patient is able to tell me that she did not take too many pills. CT scan of the abdomen reviewed, on IV antibiotics ceftriaxone, Flagyl added. CT also showed ascites, which was tapped, fluid appears to be exudative in nature. Likely reactive to the bowel process. Gram stain is negative. Cultures pending. However, in light of ongoing antibiotics. I doubt if microbiology will grow anything. her potassium is low, which has been aggressively replaced She will likely need GI evaluation/ follow up as outpatient. No GI consult available at present. Aug 22 patient seen and examined, noted overnight events, significant to be in the bed. Blood pressure elevated, it seems that the long-acting release. Medications are not being absorbed. Patient is able to tolerate breakfast. Does not have much nausea today. Dr. JOHNSON is available and EPI Sandoval was available for GI consult, they will evaluate the patient. I believe the plan is for colonoscopy, likely tomorrow She remains on broad-spectrum antibiotics is afebrile Potassium level better today. Low phosphate noted, replaced. Patient has some runs of nonsustained V. tach, platelets are stable. Start the patient on beta blockers. Metoprolol 25 mg twice a day for now. Blood pressure is high, so this should help We'll also stop nifedipine long-acting medication and start the patient on amlodipine 10 mg once a day Aug 23 patient seen and examined, no acute overnight events. Heart rate was better controlled. BP better controlled after addition of metoprolol. Patient has no new complaints. She is drinking her GoLYTELY and plans to have the colonoscopy done Her wbc is slightly worse today. chest x ray and ua is neg fermin placed overnight due to urinary retention. Pertinent ROS: Denies headache, dizziness Denies chest pain, palpitations Denies cough or shortness of breath Denies abdominal pain, nausea or vomiting. dairrhea present due to golytely. - Constitutional Vitals: Vital Signs Temp Pulse Resp BP Pulse Ox 98.6 F 57 L 18 112/76 98 08/23/17 17:04 08/23/17 17:04 08/23/17 17:04 08/23/17 17:04 08/23/17 17:04 Period Temp Pulse Resp BP Sys/King Pulse Ox Last 24 Hr 98.1 F-99.1 F 57-87 16-18 112-201/69-107 94-99 Intake and Output 08/23/17 08/23/17 08/23/17 05:59 13:59 21:59 Intake Total 2340 / 2340 2100 / 2100 100 / 100 Output Total 1790 / 1790 700 / 700 750 / 750 Balance 550 / 550 1400 / 1400 -650 / -650 Weight 233 lb 8 oz Patient Weight 08/24/17 05:59 Weight 233 lb 8 oz Intake & Output: Intake & Output 08/23/17 08/23/17 08/23/17 05:59 13:59 21:59 Intake Total 2340 / 2340 2100 / 2100 100 / 100 Output Total 1790 / 1790 700 / 700 750 / 750 Balance 550 / 550 1400 / 1400 -650 / -650 Weight 233 lb 8 oz Intake: IV 100 / 100 100 / 100 100 / 100 Oral 2240 / 2240 2000 / 2000 Output: Urine Catheter Amount 1640 / 1640 550 / 550 Uretheral (Fermin) 720 / 720 Urine/Stool Mix 150 / 150 Stool 700 / 700 200 / 200 Other: Stool Size Moderate Moderate Stool Color Brown Yellow Yellow Yellow Stool Consistency Liquid Watery Watery # Bowel Movements 0 # of times incontinent of 2 1 1 Bowels Exam: Constitutional; Afebrile, cooperative, alert, not in distress. Eyes- No icterus, , No periorbital swelling Ears- Ext ear normal, hearing normal to conversation. Neck- Midline trachea, supple Respiratory system: Air Entry equal on both sides, No crackles or wheezing, no rhonchi. CVS- Rate rhythm regular, S1,S2 heard, no gallop, no rub. Abdomen- Soft nontender abdomen, no organomegaly, no tenderness, no guarding or rigidity, BOOK SHELVER- AOOx3, moving all extremities, no gross focal deficit noted. Medical - PN: Obj Da - Labs CBC & Chem 7: 08/23/17 03:50 08/23/17 03:50 Labs: Abnormal Lab Results 08/23/17 08/23/17 08/23/17 03:50 03:50 02:30 WBC 15.6 H RDW 16.7 H MPV 11.3 H Gran # 11.0 H Boone # (Auto) 1.2 H Potassium Glucose Calcium Phosphorus 2.4 L AST ALT Lactate Dehydrogenase 254 H Urine Protein >=500 A Urine Occult Blood 0.03 A Urine RBC 2 H Hyaline Casts 7 H 08/22/17 08/22/17 08/21/17 04:00 04:00 16:05 WBC 14.9 H RDW 16.5 H MPV 10.6 H Gran # 10.9 H Boone # (Auto) Potassium Glucose 117 H 121 H Calcium Phosphorus 1.4 L AST ALT Lactate Dehydrogenase Urine Protein Urine Occult Blood Urine RBC Hyaline Casts 08/21/17 08/21/17 05:17 03:50 WBC 14.8 H RDW 16.3 H MPV 10.9 H Gran # 10.1 H Boone # (Auto) 1.1 H Potassium 2.7 L* Glucose Calcium 8.5 L Phosphorus 2.5 L AST 42 H ALT 48 H Lactate Dehydrogenase Urine Protein Urine Occult Blood Urine RBC Hyaline Casts Meds: Medications Acetaminophen (Tylenol) 650 mg PO Q6HP PRN PRN Reason: PAIN/FEVER > 101 Last Admin: 08/20/17 10:10 Dose: 650 mg Allopurinol (Zyloprim) 100 mg PO QDAY [facility] Last Admin: 08/23/17 10:37 Dose: 100 mg Amlodipine Besylate (Norvasc) 10 mg PO DAILY [facility] Last Admin: 08/23/17 10:37 Dose: 10 mg Aspirin (Ecotrin) 325 mg PO DAILY [facility] Last Admin: 08/23/17 10:37 Dose: 325 mg Ceftriaxone Sodium (Rocephin) 1 gm IV DAILY [facility] Last Admin: 08/23/17 10:44 Dose: 1 gm Cyanocobalamin (Vitamin B-12) 2,500 mcg PO DAILY [facility] Last Admin: 08/23/17 10:37 Dose: 2,500 mcg Dextrose (Dextrose 50%) 0 ml IV UD PRN PRN Reason: Hypoglycemia Diagnostic Test (Pha) (Accu-Chek) 1 each FS ACHS [facility] Last Admin: 08/23/17 17:12 Dose: Not Given Diagnostic Test (Pha) (Accu-Chek) 1 each FS ONCE [facility] Stop: 08/23/17 19:55 Last Admin: 08/23/17 17:12 Dose: Not Given Enoxaparin Sodium (Lovenox) 40 mg SQ DAILY [facility] Last Admin: 08/23/17 10:36 Dose: 40 mg Glucose (Insta-Glucose) 15 gm PO PRN PRN PRN Reason: Hypoglycemia Hydralazine HCl (Apresoline) 10 mg IV Q4HP PRN PRN Reason: Hypertension Last Admin: 08/22/17 21:00 Dose: 10 mg Acetaminophen (Ofirmev) 650 mg in 65 mls @ 130 mls/hr IV Q6HP PRN PRN Reason: PAIN/FEVER > 101 Last Infusion: 08/17/17 01:00 Dose: Infused Metronidazole (Flagyl) 500 mg in 100 mls @ 100 mls/hr IV Q8H [facility] Last Infusion: 08/23/17 15:00 Dose: Infused Insulin Human Lispro (Humalog) 0 unit SQ ACHS [facility] PRN Reason: Protocol Last Admin: 08/23/17 17:12 Dose: Not Given Ketamine HCl (Ketalar) 50 mg IV ONCE PRN PRN Reason: Sedation Stop: 08/23/17 19:55 Levothyroxine Sodium (Synthroid) 100 mcg PO ACB [facility] Last Admin: 08/23/17 10:44 Dose: 100 mcg Lisinopril (Zestril) 20 mg PO QDAY [facility] Last Admin: 08/23/17 10:37 Dose: 20 mg Metoprolol Tartrate (Lopressor) 25 mg PO BID [facility] Last Admin: 08/23/17 10:37 Dose: 25 mg Midazolam HCl (Versed) 0 mg IV ONCE [facility] Stop: 08/23/17 19:55 Naloxone HCl (Narcan) 0.1 mg IV Q2MIN PRN PRN Reason: Opiate Reversal Ondansetron HCl (Zofran) 4 mg IV Q4HP PRN PRN Reason: Nausea And Vomiting Last Admin: 08/22/17 18:52 Dose: 4 mg Propofol (Diprivan) 0 mg IV ONCE PB Stop: 08/23/17 19:55 Sertraline HCl (Zoloft) 50 mg PO DAILY PB Last Admin: 08/23/17 10:37 Dose: 50 mg Medical - PN: A/P - Time Spent With Patient Total time spent is greater than 50% in coordination of care (as documented) at patient's floor/unit and/or counseling patient: - Narrative A/P Narrative: 81-year-old female with fairly abrupt change in mental status, now developing fever in the hospital. Acute encephalopathy: toxic vs infectious encephalopathy, CT head neg This is now Resolved Enteritis: Infectious:> on IV Rocephin and Flagyl, clinically improving monitor , will need colonoscopy with push enteroscopy, Dr dobson to evaluate and possible colonoscopy planned wbc slightly worse today. Ascitis: exudative in nature, likely from enteritis, reactionary, for now treat underling etiology and monitor. appreciate gi input. Coughing with meals/aspiration risk. May have contributed to fever at presentation and increasing white count. Plan: Speech therapy evaluation and treat. awaiting consult note. x ray neg Hypertension. On extended release nifedipine and lisinopril at home. Still running elevated blood pressures. Nifedipine dose increased, 30 mg at bedtime was added to 60 mg in the morning. Plan: bp better after addition of metoprolol and starting amlodipine. Hypokalemia, hypophosphatemia. Plan: Replete, Bradycardia. Improved, only intermittent HR to upper 50's at rest, increases appropriately with activity. Wonder if she has been having episodes of bradycardia at home, that may have contributed to her presentation. She did maintain adequate blood pressure with the low heart rate however. Plan: Can stop tele if remains stable, after K is normal. Type 2 diabetes mellitus. On metformin at home. Given acute illness, holding metformin. Plan: Hold metformin, slight scale insulin, Accu-Cheks, diabetic diet. Osteoarthritis with chronic opioid use for pain control. Plan: Holding opioids while mental status is altered/encephalopathic. Chronic kidney disease, stage III. Baseline creatinine 1.1, stable at 1.2. History of microalbuminuria in 2014, now with occult proteinuria. Plan: Continue with lisinopril, renal dose medications as needed, monitor renal function. Acquired hypothyroidism with history of thyroidectomy. On levothyroxine replacement at home. Plan: on levothyroxine, continue same. dvt enoxaparin. Medical - PN: Qual - VTE Deep Vein Thrombosis/Pulmonary Embolism Present on Admission: No
[2017-08-23] MEDS: hydrALAZINE 20 MG/ML VIAL IV PRN (19:49)
[2017-08-24 05:21] LABS: Basophils # (Auto) 0.1 K/mcL (0.0-0.3); Basophils % (Auto) 0.7 % (0.0-2.0); Eosinophils # (Auto) 0.1 K/mcL (0.0-0.7); Eosinophils % (Auto) 1.1 % (0.0-7.0); Granulocytes % (Auto) 68.2 % (38.0-78.0); Lymphocytes # (Auto) 2.8 K/mcL (1.5-4.8); Lymphocytes % (Auto) 22.6 % (15.5-49.0); Mean Cell Volume 86.9 fL (80.0-100.0); Mean Corpuscular HGB Conc 33.5 g/dL (31.0-36.0); Mean Corpuscular Hemoglobin 29.1 pg (26.0-34.0); Monocytes # (Auto) 0.9 K/mcL (0.1-0.9); Monocytes % (Auto) 7.4 % (1.0-12.0); Platelet Count 179 K/mcL (140-440); RBC 4.38 M/mcL (4.00-5.20); Red Cell Distribution Width 15.6 % (11.5-14.5)
[2017-08-24] MEDS: metroNIDAZOLE 500 MG/100 ML BAG IV SCH ×3 (05:44→21:56)
[2017-08-24 05:59] LABS: ALT/SGPT 35 U/l (0-40); Albumin 3.2 gm/dL (3.2-5.2); Albumin/Globulin Ratio 1.2 (1.0-2.3); Alkaline Phosphatase 56 U/L (39-117); Bilirubin,Direct < 0.2 mg/dL (0.0-0.3); Blood Urea Nitrogen 11 mg/dl (8-23); Gamma Glutamyl Transpeptidase 12 U/L (5-36); Uric Acid 4.6 mg/dL (2.5-8.0)
[2017-08-24] MEDS: 0.9 % SODIUM CHLORIDE 10 ML SYRINGE IV SCH ×4 (06:45→23:02)
[2017-08-24] MEDS: INSULIN LISPRO 1 UNIT/0.01 ML UNIT SQ SCH ×4 (07:33→20:56)
[2017-08-24] MEDS ORDERED: KETAMINE 10 MG/ML ML IV PRN (07:33)
[2017-08-24] MEDS ORDERED: POTASSIUM CHLORIDE 20 MEQ PACKET PO ONE (07:39)
[2017-08-24] MEDS ORDERED: PROPOFOL 200 MG/20 ML VIAL IV SCH ×2 (07:45)
[2017-08-24] MEDS ORDERED: MIDAZOLAM 2 MG/2 ML VIAL IV SCH (07:45)
[2017-08-24] MEDS ORDERED: MAGNESIUM SULFATE 2 GM/50 ML BAG IV ONE (08:00)
[2017-08-24] MEDS ORDERED: PROPOFOL 20 ML IV ONE (08:19)
[2017-08-24] MEDS ORDERED: MIDAZOLAM 2 MG/2 ML VIAL ONE (08:19)
[2017-08-24] MEDS: cefTRIAXone 1 GM VIAL IV SCH (10:21)
--- NOTE | 2017-08-24 11:46 | Internal Med Progress Note ---
Medical - PN: Subj Patient information: Note initiated : 08/24/17 at 11:44 am Service Date, if different from initiated Date: [] Patient: Amada Herron 81 y/o F admitted on 08/17/17 for Altered LOC. Chief Complaint: [] Interval history: Aug 16 The patient's 84-year-old female with a history of osteoarthritis, hypothyroidism, type 2 diabetes mellitus, hypertension who presents today from home via EMS with changes in mental status. History is obtained in speaking with Dr. Machado from the emergency department, and reviewing old medical records.. The patient's unable to provide any history. Apparently at baseline the patient is mostly nonambulatory, it appears due to osteoarthritis and morbid obesity, but is able to transfer into a power scooter , and functions well at home where she lives with her son who is a caregiver. Proximally 7:00-8:00 PM last night, her son noted that her speech became incoherent, she was babbling, having difficulty speaking and with garbled words at time. It is unclear if this was a word finding problem or an articulation problem. She also became much more weak, was unable to transfer to her scooter. Her son was concerned that she may have consumed extra dose of her opioid pain medication. He continued to monitor her. She did not improve, she presents to the emergency department early this morning via EMS for altered mental status. When she arrived she is a lethargic , initially poorly responsive. She received Narcan en route via EMS with no significant change. She was able to wake time and interactive with questions, at other times not so much, with a waxing and waning attention in mental status. She spent most of the overnight in the ED sleeping. She would arouse and respond somewhat, but was not back to her usual status. Laboratory evaluation was notable for white count of 13.8. She has stable renal function and creatinine 1.2 (CKD stage III). Chest x-ray showed evidence of volume overload/congestive heart failure. Urinalysis with proteinuria and ketonuria but no evidence of urinary tract infection. Head CT was with chronic white matter changes, nothing acute. I was contacted to hospitalize the patient for further evaluation. During my examination, the patient felt warm, sound to have a temperature of 100.8, having been normal actually one hour previously. Patient is being hospitalized for further evaluation of encephalopathy, suspected occult infection.she is attempting to reply at times, but does not appear to track with conversations. She does not meaningfully follow commands. Aug 17 During the day yesterday, the patient became progressively more arousable. He was able to assist in some care. Was able to give a few responses. She recently had a oxycodone prescription filled, the bottle was empty. This was brought in by family. Now looking like she may have had opioid toxicity, even though she did not initially respond to Narcan. However also febrile 102.5 upon arrival on the floor yesterday. Ceftriaxone was started. Fevers of tapered off. Cultures are negative to date. Patient appeared quite dehydrated as well, though mild CHF reported on chest x-ray. Responded to IV fluids. This morning seems to be in no distress. However did have abrupt decline in pulse from 80s to 40s and occasionally into the 30s with a sinus bradycardia. EKG shows no injury pattern, does show bradycardia. Pulse picked up in the 50s when aroused. Patient denies any complaints, though unclear if she is fully tracking with questions still. Aug 18 Alerts early this afternoon. Able to carry on fairly good conversation, though tends to perseverate a bit on what her son has not been in contact (he's been in contact with case management) and unclear as to why she went up in the hospital. She stated she may have taken extra pain medications on occasion in the past, though tries to be careful with that. She was not sure why her pill bottle filled last week with 30 tablets would be empty. No fever, chills. She had nausea yesterday, seems to be resolved. No dyspnea. Good urine output. August 19 Seen at bedside along with RN. Continues to slowly improve. Relates that she had been starting to wean off oxycodone and was starting on tramadol as an alternative, however this does not seem to explain why her supply of 30 oxycodone tablets were gone within a week. Notes that she been having some headaches after a fall in April when she had her head, however those seem to have resolved now. Also notes sometimes she has trouble with word finding and getting her words out. This morning, she had significant coughing after trying to eat breakfast. Concerned that she may have had some aspiration. White count is rising, however she has stable vitals, no further fever and no source. Chest x-ray yesterday looked good. Fermin is draining clear urine and follow-up UA is pending. August 20 Continues to have intermittent nausea, says carmen kilgore helps. Still some tangentiality with thoughts and speech. This may be her baseline, suspect that there are some underlying cognitive impairment. White count still elevated, low -grade temp. Some left lower quadrant pain on exam today, we'll evaluate for abdominal process with CT. aug 21 patient seen and examined, no acute overnight events, sitting comfortably in the bed, wanting to eat breakfast. She denied any chest pain, no shortness of breath. Still has some soreness in the abdomen, speech and thought process appeared clear. However, today is my first day and I'm not able to a certain how she was yesterday. Patient is able to tell me that she did not take too many pills. CT scan of the abdomen reviewed, on IV antibiotics ceftriaxone, Flagyl added. CT also showed ascites, which was tapped, fluid appears to be exudative in nature. Likely reactive to the bowel process. Gram stain is negative. Cultures pending. However, in light of ongoing antibiotics. I doubt if microbiology will grow anything. her potassium is low, which has been aggressively replaced She will likely need GI evaluation/ follow up as outpatient. No GI consult available at present. Aug 22 patient seen and examined, noted overnight events, significant to be in the bed. Blood pressure elevated, it seems that the long-acting release. Medications are not being absorbed. Patient is able to tolerate breakfast. Does not have much nausea today. Dr. JOHNSON is available and EPI Sandoval was available for GI consult, they will evaluate the patient. I believe the plan is for colonoscopy, likely tomorrow She remains on broad-spectrum antibiotics is afebrile Potassium level better today. Low phosphate noted, replaced. Patient has some runs of nonsustained V. tach, platelets are stable. Start the patient on beta blockers. Metoprolol 25 mg twice a day for now. Blood pressure is high, so this should help We'll also stop nifedipine long-acting medication and start the patient on amlodipine 10 mg once a day Aug 23 patient seen and examined, no acute overnight events. Heart rate was better controlled. BP better controlled after addition of metoprolol. Patient has no new complaints. She is drinking her GoLYTELY and plans to have the colonoscopy done Her wbc is slightly worse today. chest x ray and ua is neg fermin placed overnight due to urinary retention. Aug 24 Pt seen examined, no acute overnight events low grade temp, but no other symptoms. EGD planned this AM labs reviewed, low K and mg replaced, WBC trending down Patient has no other complaints. Pertinent ROS: Denies headache, dizziness Denies chest pain, palpitations Denies cough or shortness of breath Denies abdominal pain, nausea or vomiting. - Constitutional Vitals: Vital Signs Temp Pulse Resp BP Pulse Ox 100.2 F H 70 14 169/100 98 08/24/17 06:41 08/24/17 11:35 08/24/17 11:35 08/24/17 11:35 08/24/17 11:35 Period Temp Pulse Resp BP Sys/King Pulse Ox Last 24 Hr 97.4 F-100.2 F 55-70 14-20 112-210/37-100 95-100 Intake and Output 08/23/17 08/24/17 08/24/17 21:59 05:59 13:59 Intake Total 100 / 100 100 / 100 100 / 100 Output Total 750 / 750 950 / 950 Balance -650 / -650 -850 / -850 100 / 100 Weight 231 lb Intake & Output: Intake & Output 08/23/17 08/24/17 08/24/17 21:59 05:59 13:59 Intake Total 100 / 100 100 / 100 100 / 100 Output Total 750 / 750 950 / 950 Balance -650 / -650 -850 / -850 100 / 100 Weight 231 lb Intake: IV 100 / 100 100 / 100 100 / 100 Output: Urine Catheter Amount 550 / 550 950 / 950 Stool 200 / 200 Other: Stool Size Small Stool Color Yellow Silver Stool Consistency Watery Liquid # Bowel Movements 1 # of times incontinent of 1 Bowels Exam: Constitutional; Afebrile, cooperative, alert, not in distress. Eyes- No icterus, , No periorbital swelling Ears- Ext ear normal, hearing normal to conversation. Neck- Midline trachea, supple Respiratory system: Air Entry equal on both sides, No crackles or wheezing, no rhonchi. CVS- Rate rhythm regular, S1,S2 heard, no gallop, no rub. Abdomen- Soft nontender abdomen, no organomegaly, no tenderness, no guarding or rigidity, PROJ MGR- AOOx3, moving all extremities, no gross focal deficit noted. Perineal exam done in presens of female nurse, no abscess, excoriation noted 2x2 cms, not infected. Medical - PN: Obj Da - Labs CBC & Chem 7: 08/24/17 03:40 08/24/17 03:40 Labs: Abnormal Lab Results 08/24/17 08/24/17 08/23/17 03:40 03:40 03:50 WBC 12.4 H RDW 15.6 H MPV 11.5 H Gran # 8.5 H Johnson # (Auto) Anion Gap 17.0 H Glucose Phosphorus 2.4 L Magnesium 1.4 L AST 42 H Lactate Dehydrogenase 254 H Total Protein 5.8 L Urine Protein Urine Occult Blood Urine RBC Hyaline Casts 08/23/17 08/23/17 08/22/17 03:50 02:30 04:00 WBC 15.6 H RDW 16.7 H MPV 11.3 H Gran # 11.0 H Johnson # (Auto) 1.2 H Anion Gap Glucose 117 H Phosphorus 1.4 L Magnesium AST Lactate Dehydrogenase Total Protein Urine Protein >=500 A Urine Occult Blood 0.03 A Urine RBC 2 H Hyaline Casts 7 H 08/22/17 08/21/17 04:00 16:05 WBC 14.9 H RDW 16.5 H MPV 10.6 H Gran # 10.9 H Johnson # (Auto) Anion Gap Glucose 121 H Phosphorus Magnesium AST Lactate Dehydrogenase Total Protein Urine Protein Urine Occult Blood Urine RBC Hyaline Casts Meds: Medications Acetaminophen (Tylenol) 650 mg PO Q6HP PRN PRN Reason: PAIN/FEVER > 101 Last Admin: 08/20/17 10:10 Dose: 650 mg Allopurinol (Zyloprim) 100 mg PO QDAY [facility] Last Admin: 08/23/17 10:37 Dose: 100 mg Amlodipine Besylate (Norvasc) 10 mg PO DAILY [facility] Last Admin: 08/23/17 10:37 Dose: 10 mg Aspirin (Ecotrin) 325 mg PO DAILY [facility] Last Admin: 08/23/17 10:37 Dose: 325 mg Ceftriaxone Sodium (Rocephin) 1 gm IV DAILY [facility] Last Admin: 08/24/17 10:21 Dose: 1 gm Cyanocobalamin (Vitamin B-12) 2,500 mcg PO DAILY [facility] Last Admin: 08/23/17 10:37 Dose: 2,500 mcg Dextrose (Dextrose 50%) 0 ml IV UD PRN PRN Reason: Hypoglycemia Diagnostic Test (Pha) (Accu-Chek) 1 each FS ACHS [facility] Last Admin: 08/24/17 07:33 Dose: 1 each Diagnostic Test (Pha) (Accu-Chek) 1 each FS ONCE [facility] Stop: 08/24/17 15:33 Enoxaparin Sodium (Lovenox) 40 mg SQ DAILY [facility] Last Admin: 08/23/17 10:36 Dose: 40 mg Glucose (Insta-Glucose) 15 gm PO PRN PRN PRN Reason: Hypoglycemia Hydralazine HCl (Apresoline) 10 mg IV Q4HP PRN PRN Reason: Hypertension Last Admin: 08/23/17 19:49 Dose: 10 mg Acetaminophen (Ofirmev) 650 mg in 65 mls @ 130 mls/hr IV Q6HP PRN PRN Reason: PAIN/FEVER > 101 Last Infusion: 08/17/17 01:00 Dose: Infused Metronidazole (Flagyl) 500 mg in 100 mls @ 100 mls/hr IV Q8H [facility] Last Infusion: 08/24/17 06:45 Dose: Infused Insulin Human Lispro (Humalog) 0 unit SQ [facility] PRN Reason: Protocol Last Admin: 08/24/17 07:33 Dose: Not Given Ketamine HCl (Ketalar) 50 mg IV ONCE PRN PRN Reason: Sedation Stop: 08/24/17 15:33 Levothyroxine Sodium (Synthroid) 100 mcg PO ACB [facility] Last Admin: 08/23/17 10:44 Dose: 100 mcg Lisinopril (Zestril) 20 mg PO QDAY [facility] Last Admin: 08/23/17 10:37 Dose: 20 mg Metoprolol Tartrate (Lopressor) 25 mg PO BID [facility] Last Admin: 08/23/17 21:43 Dose: 25 mg Midazolam HCl (Versed) 0 mg IV ONCE [facility] Stop: 08/24/17 15:33 Last Admin: 08/24/17 11:28 Dose: 2 mg Naloxone HCl (Narcan) 0.1 mg IV Q2MIN PRN PRN Reason: Opiate Reversal Ondansetron HCl (Zofran) 4 mg IV Q4HP PRN PRN Reason: Nausea And Vomiting Last Admin: 08/22/17 18:52 Dose: 4 mg Propofol (Diprivan) 0 mg IV ONCE PB Stop: 08/24/17 12:00 Last Admin: 08/24/17 11:33 Dose: 130 mg Sertraline HCl (Zoloft) 50 mg PO DAILY [facility] Last Admin: 08/23/17 10:37 Dose: 50 mg Sodium Chloride (Saline Flush) 10 ml IV Q8 [facility] Last Admin: 08/24/17 09:34 Dose: 10 ml Medical - PN: A/P - Time Spent With Patient Total time spent is greater than 50% in coordination of care (as documented) at patient's floor/unit and/or counseling patient: - Narrative A/P Narrative: 81-year-old female with fairly abrupt change in mental status, now developing fever in the hospital. Acute encephalopathy: toxic vs infectious encephalopathy, CT head neg This is now Resolved Enteritis: Infectious:> on IV Rocephin and Flagyl, clinically improving monitor , will need colonoscopy with push enteroscopy, Dr dobson to evaluate and possible colonoscopy planned wbc improved, if continous to improve will plan for D/c in AM Ascitis: exudative in nature, likely from enteritis, reactionary, for now treat underling etiology and monitor. appreciate gi input, likely reactive to enteritis Hypertension. On extended release nifedipine and lisinopril at home. Still running elevated blood pressures. Plan: bp better after addition of metoprolol and starting amlodipine. also remains on lisinopril Hypokalemia, hypophosphatemia, hypomagnesemia. Plan: Replete, Bradycardia. Improved, only intermittent HR to upper 50's at rest, increases appropriately with activity. Type 2 diabetes mellitus. On metformin at home. Given acute illness, holding metformin. Plan: Hold metformin, slight scale insulin, Accu-Cheks, diabetic diet. Osteoarthritis with chronic opioid use for pain control. Plan: Holding opioids while mental status is altered/encephalopathic. Chronic kidney disease, stage III. Baseline creatinine 1.1, stable at 1.2. History of microalbuminuria in 2014, now with occult proteinuria. Plan: Continue with lisinopril, renal dose medications as needed, monitor renal function. Acquired hypothyroidism with history of thyroidectomy. On levothyroxine replacement at home. Plan: on levothyroxine, continue same. dvt enoxaparin. Medical - PN: Qual - VTE Deep Vein Thrombosis/Pulmonary Embolism Present on Admission: No
[2017-08-24] MEDS ORDERED: PANTOPRAZOLE 40 MG VIAL IV ONE (11:51)
[2017-08-24] MEDS: amLODIPine 10 MG TABLET PO SCH (12:08)
[2017-08-24] MEDS: LISINOPRIL 20 MG TABLET PO SCH (12:08)
[2017-08-24] MEDS: METOPROLOL TARTRATE 25 MG TABLET PO SCH ×2 (12:09→20:55)
[2017-08-24] MEDS: ENOXAPARIN 40 MG/0.4 ML SYRINGE SQ SCH (12:27)
[2017-08-24] MEDS: ALLOPURINOL 100 MG TABLET PO SCH (12:56)
[2017-08-24] MEDS: LEVOTHYROXINE 100 MCG TABLET PO SCH (12:56)
[2017-08-24] MEDS: SERTRALINE 50 MG TABLET PO SCH (12:56)
[2017-08-24] MEDS: ASPIRIN 325 MG ENTERIC COATED TABLET PO SCH (12:56)
[2017-08-24] MEDS: CYANOCOBALAMIN (VITAMIN B-12) 500 MCG TABLET PO SCH (12:56)
--- NOTE | 2017-08-24 13:24 | Surgical Pathology Report ---
HISTOLOGY SPECIMEN MICROSCOPIC DIAGNOSIS SPECIMEN A - COLON, ASCENDING, POLYPECTOMY: -- TWO FRAGMENTS OF TUBULAR ADENOMA(S). SPECIMEN B - COLON, RANDOM, BIOPSY: -- NO DIAGNOSTIC ALTERATIONS. -- NO ARCHITECTURAL DISTORTION, ACTIVE COLITIS, GRANULOMAS OR MICROSCOPIC COLITIS IDENTIFIED. (DMT:arlene) CLINICAL HISTORY Diarrhea; abnormal CT. PROCEDURAL IMPRESSION Microscopic colitis (?); polyps. GROSS DESCRIPTION Specimen A: Received in formalin labeled ascending polyp, are two domínguez tissue fragments 0.2 and 0.4 cm. Entirely submitted - one cassette. Specimen B: Received in formalin labeled random colon, are eight domínguez tissue 0.2 to 0.7 cm. Entirely submitted - one cassette. (SCB:adj) Electronically Signed by: Philippe Joya M.D.
--- NOTE | 2017-08-24 13:54 | Colonoscopy Procedure Note ---
Colonoscopy Procedure Notes - Procedure Information Patient information: Note initiated : 08/24/17 at 1:44 pm Service Date: 08.23.2017 Patient: Amada Herron 81 y/o F admitted on 08/17/17 for Altered LOC. Pre-op diagnosis general: Diarrhea. Abnormal CT. Post-op diagnosis general: Diarrhea. Query microscopic colitis. False positive CT scan. Procedure narrative: The procedure, alternatives and risks were discussed with the patient and the patient's questions were answered. With intravenous sedation, the Olympus colonoscope was introduced into the rectum and advanced to the cecum. Ileocecal valve was identified, and intubated.The colon is long, redundant and difficult. Special effort was made to examine as much of the terminal ileum as possible. At least 30 to 40 cm of the terminal ileum were examined and were normal. Random colon biopsies were taken throughout the colon to assess for microscopic colitis. The colon otherwise appeared normal. Colonic polyps were seen in the ascending colon. The proximal polyps were removed with a snare. They were retrieved for histological examination. Diverticula appear uncomplicated. Assessment: Diarrhea. Query microscopic colitis. False positive CT scan.
[2017-08-24] MEDS: ACETAMINOPHEN 325 MG TABLET PO PRN (21:02)
[2017-08-25] MEDS: metroNIDAZOLE 500 MG/100 ML BAG IV SCH ×2 (00:24→06:01)
[2017-08-25] MEDS: 0.9 % SODIUM CHLORIDE 10 ML SYRINGE IV SCH (06:01)
[2017-08-25] MEDS: LEVOTHYROXINE 100 MCG TABLET PO SCH (07:16)
[2017-08-25] MEDS: INSULIN LISPRO 1 UNIT/0.01 ML UNIT SQ SCH (07:22)
[2017-08-25] MEDS ORDERED: PANTOPRAZOLE 40 MG PACKET PO SCH (07:30)
[2017-08-25 07:50] LABS: Basophils # (Auto) 0.1 K/mcL (0.0-0.3); Eosinophils # (Auto) 0.3 K/mcL (0.0-0.7); Eosinophils % (Auto) 1.9 % (0.0-7.0); Lymphocytes # (Auto) 3.4 K/mcL (1.5-4.8); Lymphocytes % (Auto) 24.3 % (15.5-49.0); Mean Corpuscular HGB Conc 33.1 g/dL (31.0-36.0); Mean Corpuscular Hemoglobin 28.8 pg (26.0-34.0); Monocytes # (Auto) 1.2 K/mcL (0.1-0.9); Monocytes % (Auto) 8.8 % (1.0-12.0); Platelet Count 182 K/mcL (140-440); RBC 4.04 M/mcL (4.00-5.20); Red Cell Distribution Width 16.1 % (11.5-14.5)
[2017-08-25 08:09] LABS: ALT/SGPT 29 U/l (0-40); Albumin/Globulin Ratio 1.1 (1.0-2.3); Alkaline Phosphatase 52 U/L (39-117); Bilirubin,Direct < 0.2 mg/dL (0.0-0.3); Blood Urea Nitrogen 34 mg/dl (8-23); Gamma Glutamyl Transpeptidase 13 U/L (5-36)
[2017-08-25] MEDS: ASPIRIN 325 MG ENTERIC COATED TABLET PO SCH (09:41)
[2017-08-25] MEDS: METOPROLOL TARTRATE 25 MG TABLET PO SCH (09:42)
[2017-08-25] MEDS: cefTRIAXone 1 GM VIAL IV SCH (09:42)
[2017-08-25] MEDS: ENOXAPARIN 40 MG/0.4 ML SYRINGE SQ SCH (09:42)
[2017-08-25] MEDS: CYANOCOBALAMIN (VITAMIN B-12) 500 MCG TABLET PO SCH (09:43)
[2017-08-25] MEDS: LISINOPRIL 20 MG TABLET PO SCH (09:43)
[2017-08-25] MEDS: ALLOPURINOL 100 MG TABLET PO SCH (09:43)
[2017-08-25] MEDS: SERTRALINE 50 MG TABLET PO SCH (09:43)
[2017-08-25] MEDS: amLODIPine 10 MG TABLET PO SCH (09:43)
[2017-08-25] MEDS ORDERED: DEXTROSE 50% 50 ML VIAL IV PRN (10:02)
[2017-08-25] MEDS ORDERED: ONDANSETRON 4 MG/2 ML VIAL IV PRN (10:02)
[2017-08-25] MEDS ORDERED: ACETAMINOPHEN 650 MG/65 ML BOTTLE IV PRN (10:02)
[2017-08-25] MEDS ORDERED: NALOXONE HCL 0.4 MG/ML VIAL IV PRN (10:02)
[2017-08-25] MEDS ORDERED: ACETAMINOPHEN 325 MG TABLET PO PRN (10:02)
[2017-08-25] MEDS ORDERED: DEXTROSE 31 GM ORAL.SUSP PO PRN (10:02)
[2017-08-25] MEDS ORDERED: hydrALAZINE 20 MG/ML VIAL IV PRN (10:02)
--- NOTE | 2017-08-25 10:54 | Discharge Summary ---
Medical - DS: Prov Patient information: Note initiated : 08/25/17 at 10:50 am Service Date, if different from initiated Date: [] Patient: Amada Herron 81 y/o F admitted on 08/17/17 for Altered LOC. Chief Complaint: [] Date of admission: 08/17/17 10:14 Discharge date: 08/25/17 Primary care physician: Sheyla Tabor Admitting clinician: Horacio Cabrera Consults: 08/16/17 07:38 Consult to Physician [CONS] Stat Comment: Consulting Provider: Keisha Hastings Reason For Exam: Physician to Consult 08/18/17 12:57 Consult to Physician [CONS] Routine Comment: Consulting Provider: [facility] Reason For Exam: Physician to Consult Discharging clinician: Horacio Cabrera Medical - DS: Meds - Discharge Medications Prescriptions: Acetaminophen [Pain Reliever] 1,000 mg PO TIDP PRN #180 tab PRN Reason: Pain amLODIPine [Norvasc] 10 mg PO DAILY #30 tab Ciprofloxacin HCl [Cipro] 500 mg PO BID #10 tab Loperamide HCl [Anti-Diarrheal] 2 mg PO Q4HP PRN #30 cap PRN Reason: Diarrhea Metoprolol Tartrate [Lopressor] 25 mg PO BID #60 tab metroNIDAZOLE [Metronidazole] 500 mg PO TID #15 tab Omeprazole 20 mg PO QAMCC #30 tablet. traMADol HCL [Ultram] 50 mg PO Q4H #60 tab Active and Home Medications: Home Medications acetaminophen 500 mg tablet 1,000 mg PO DAILY tab 02/26/15 [History Confirmed 08/16/17 Last Taken Unknown] allopurinol 100 mg tablet 100 mg PO QDAY tab 02/26/15 [History Confirmed Last Taken Unknown] aspirin 325 mg tablet 325 mg PO QDAY tab 02/26/15 [History Confirmed 08/16/17 Last Taken Unknown] calcium carbonate 500 mg calcium (1,250 mg) tablet 500 mg PO TID 02/26/15 [ History Confirmed 08/16/17 Last Taken Unknown] cholecalciferol (vitamin D3) 2,000 unit tablet 2,000 unit PO QDAY tab 02/26/15 [History Confirmed 08/16/17 Last Taken Unknown] cyanocobalamin (vit B-12) 2,500 mcg sublingual tablet 2,500 mcg SUBLINGUAL QDAY tab 02/26/15 [History Confirmed 08/16/17 Last Taken Unknown] levothyroxine 100 mcg tablet 100 mcg PO QDAY tab 02/26/15 [History Confirmed Last Taken Unknown] lisinopril 20 mg tablet 20 mg PO QDAY tab 02/26/15 [History Confirmed 08/16/17 Last Taken Unknown] metformin 500 mg tablet 500 mg PO QDAY tab 02/26/15 [History Confirmed Last Taken Unknown] nifedipine ER 60 mg tablet,extended release 24 hr 60 mg PO QDAY tab 02/26/15 [ History Confirmed 08/16/17 Last Taken Unknown] omega-3 fatty acids-fish oil 684 mg-1,200 mg capsule,delayed release 1 cap PO QDAY 02/26/15 [History Confirmed 08/16/17 Last Taken Unknown] oxycodone-acetaminophen 5 mg-325 mg tablet 1 - 2 tab PO Q4H tab 02/26/15 [ History Confirmed 08/16/17 Last Taken Unknown] polyethylene glycol 3350 17 gram/dose oral powder 17 g PO QDAY each 03/27/15 [ History Confirmed 08/16/17 Last Taken Unknown] Sertraline HCl [Zoloft] 50 mg PO DAILY 08/16/17 [History Confirmed 08/16/17 Last Taken Unknown] traMADol HCL [Ultram] 50 - 100 mg PO Q4H 08/16/17 [History Confirmed 08/16/17 Last Taken Unknown] Medical - DS: Hosp Hospital course: This is a 84-year-old female with a history of osteoarthritis, hypothyroidism, type 2 diabetes mellitus, hypertension who came to the ER from home via EMS with changes in mental status. Apparently at baseline the patient is mostly nonambulatory, it appears due to osteoarthritis and morbid obesity, but is able to transfer into a power scooter, and functions well at home where she lives with her son who is a caregiver. Proximally 7:00-8:00 PM night before admission , her son noted that her speech became incoherent, she was babbling, having difficulty speaking and with garbled words at time. It is unclear if this was a word finding problem or an articulation problem. She also became much more weak, was unable to transfer to her scooter. Her son was concerned that she may have consumed extra dose of her opioid pain medication. When she arrived she is a lethargic, initially poorly responsive. She received Narcan en route via EMS with no significant change. Laboratory evaluation was notable for white count of 13.8. She has stable renal function and creatinine 1.2 (CKD stage III). Chest x-ray showed evidence of volume overload/congestive heart failure. Urinalysis with proteinuria and ketonuria but no evidence of urinary tract infection. Head CT was with chronic white matter changes, nothing acute. Patient is being hospitalized for further evaluation of encephalopathy, suspected occult infection.she is attempting to reply at times, but does not appear to track with conversations. AMS: The patient did develop fever during the hospital course, and she was started on antibiotics. the patients mental status cleared up gradually, after initiation of antibiotics. At the time of discharge she is back to baseline. There was some concern that she was taking too much narcotic pain medication, as the narcotic recently prescribed were over. The patient however denies same. None the less she notes that her pCP is trying to wean her off the narcotic pain medications. I would advise her to stop all Percocet. She is to use Tylenol 1 g every 8 hours as needed for pain. That report her at 3 g in 24 hours. She can also use tramadol 50 mg every 4 hours as needed for pain. CHF: noted on CXR on admission, cxr repeated in 2 days showed complete resolution of same. No recurrence later, Patient has remained euvolemic throughout the hospital stay. Enteritis-the patient had developed fever, leukocytosis, chest x-ray was negative for an infection, patient underwent a CT of the abdomen which showed colitis, there were also concerns about enteritis, jejunal thickening. The patient was started on IV Rocephin and Flagyl and she responded to the treatment well. She had ongoing diarrhea. The C. difficile was negative. Gastroenterology was consulted, she underwent a colonoscopy as well as an EGD scope he with random biopsies. The colonoscopy was negative. The EGD showed a small duodenal ulcer and the patient has been placed on PPI therapy . The patient will complete the course of antibiotics, she will be discharged on ciprofloxacin and Flagyl for another 5 days. The patient is supposed to follow up with GI as an outpatient to follow-up with her biopsies. Ascitis: The patient's CT abdomen showed ascites in the perihepatic region, this was stopped, noted to be exudative in nature. Microbiology was negative. Likely reactionary to underlying inflammation. GI is following as an outpatient Hypertension: the patient's blood pressure in the hospital was in the higher end , her blood pressure medications have been changed. She will continue lisinopril. Her nifedipine has been switched to amlodipine. And she has been started on metoprolol 25 mg twice a day. the rest of the stay in the hospital was uneventful. the patient had an prolonged stay in the hospital, and was very weak secondary to the infection and being bedbound. The patient will be discharged to a rehabilitation center for therapy to regain her strength. Discharge diagnosis: Diarrhea, Altered mental status, Enteritis. - Time Spent with Patient Total time spent providing and/or coordinating discharge services: Greater than 30 minutes Medical - DS: Exam - Constitutional Vitals: Vital Signs Temp Pulse Pulse Resp BP BP Pulse Ox 08/25/17 07:15 97.5 F 65 18 164/83 97 08/25/17 04:00 164/83 08/25/17 03:59 167/99 08/25/17 03:49 98.1 F 58 L 20 172/68 97 08/25/17 00:00 98.2 F 20 156/72 96 08/24/17 23:56 156/72 08/24/17 20:00 98.6 F 67 60 20 144/62 95 08/24/17 19:24 144/62 08/24/17 16:47 98.3 F 59 L 20 114/65 97 08/24/17 15:55 99.2 F H 08/24/17 14:02 167/69 08/24/17 13:32 196/146 08/24/17 13:02 198/79 08/24/17 12:32 186/86 08/24/17 12:17 172/76 08/24/17 12:11 52 L 202/78 100 08/24/17 12:02 52 L 180/82 96 08/24/17 11:53 99.2 F H 62 18 154/92 91 08/24/17 11:50 98.4 F 60 14 154/92 94 08/24/17 11:35 70 14 169/100 98 08/24/17 11:06 58 L 20 150/51 96 Intake and Output 0208/25/17 08/25/17 21:59 05:59 13:59 Intake Total 700 / 700 500 / 500 Output Total 425 / 425 150 / 150 2375 / 2375 Balance 275 / 275 350 / 350 -2375 / -2375 Intake: IV 100 / 100 100 / 100 Oral 600 / 600 400 / 400 Output: Urine Catheter Amount 425 / 425 1825 / 1825 Stool 150 / 150 550 / 550 Other: Meal Dinner Breakfast Percent of Meal Consumed 75% 100% Feeding Ability Assist with Tray Set Up Independent Stool Size Small Moderate Stool Color Brown Black Green Stool Consistency Liquid Liquid Loose # Bowel Movements 1 # of times incontinent of 1 1 Bowels Weight 230 lb 8 oz Additional comments: Constitutional; Afebrile, cooperative, alert, not in distress. Eyes- No icterus, , No periorbital swelling Ears- Ext ear normal, hearing normal to conversation. Neck- Midline trachea, supple Respiratory system: Air Entry equal on both sides, No crackles or wheezing, no rhonchi. CVS- Rate rhythm regular, S1,S2 heard, no gallop, no rub. Abdomen- Soft nontender abdomen, no organomegaly, no tenderness, no guarding or rigidity, FISCAL ASSISTANT- AOOx3, moving all extremities, no gross focal deficit noted. Medical - DS: Data Procedures and tests throughout hospitalization: head CT IMPRESSION: Moderate atrophy and extensive chronic ischemic changes in the cerebral white matter compatible with age. No change from 05/03/2016.. Head CT IMPRESSION: Moderate atrophy and extensive chronic ischemic changes in the cerebral white matter compatible with age. No change from 08/16/2017 and 05/03/2016 CXR IMPRESSION: Moderate CHF CXR IMPRESSION: Complete resolution in CHF. Tiny bilateral pleural effusions persist CT abdomen and pelvis IMPRESSION: 1. Moderate thickening of the wall and plica circulares folds in the distal jejunum and ileum with possibly skip lesions. There is involvement of the terminal ileum. This also moderate concentric wall thickening of the rectum and distal sigmoid. Moderate ascites is noted in the perihepatic region. Diagnostic considerations include inflammatory bowel disease or infectious enteritis. Imaging guided paracentesis will be performed for fluid analysis. Also suggest colonoscopy to exam and possibly biopsy both the rectum and the terminal ileum. 2. Mild atrophy of the right kidney with mild compensatory hypertrophy of the left kidney. There is equivocal stenosis of the right renal artery origin. US abdomen Impression: Ascites IMPRESSION: Successful CT-guided paracentesis yielding 20 cc of simple appearing transudative ascites. Fluid was sent to the laboratory for requested studies. Postprocedure scanning shows only minimal residual fluid. Patient tolerated procedure well without apparent complication XRray chest IMPRESSION: Old granulomatous disease and no acute abnormality colonoscopy The procedure, alternatives and risks were discussed with the patient and the patient's questions were answered. With intravenous sedation, the Olympus colonoscope was introduced into the rectum and advanced to the cecum. Ileocecal valve was identified, and intubated.The colon is long, redundant and difficult. Special effort was made to examine as much of the terminal ileum as possible. At least 30 to 40 cm of the terminal ileum were examined and were normal. Random colon biopsies were taken throughout the colon to assess for microscopic colitis. The colon otherwise appeared normal. Colonic polyps were seen in the ascending colon. The proximal polyps were removed with a snare. They were retrieved for histological examination. Diverticula appear uncomplicated. Labs on day of discharge: Labs from last 24 hours 08/25/17 08/25/17 08/25/17 06:24 06:24 06:24 WBC 13.9 H RBC 4.04 Hgb 11.6 L Hct 35.2 L MCV 87.0 MCH 28.8 MCHC 33.1 RDW 16.1 H Plt Count 182 MPV 11.1 H Gran % 64.0 Lymph % (Auto) 24.3 [place] % (Auto) 8.8 Eos % (Auto) 1.9 Baso % (Auto) 1.0 Gran # 8.9 H Lymph # (Auto) 3.4 [place] # (Auto) 1.2 H Eos # (Auto) 0.3 Baso # (Auto) 0.1 Smear Path Review Sodium 144 Potassium 3.9 Chloride 106 Carbon Dioxide 25 Anion Gap 13.0 BUN 34 H Creatinine 1.2 H GFR Calculation 42 Glucose 102 Uric Acid 5.0 Calcium 8.8 Phosphorus 2.5 L Magnesium 1.9 Total Bilirubin 0.3 Direct Bilirubin < 0.2 GGT 13 AST 27 ALT 29 Alkaline Phosphatase 52 Lactate Dehydrogenase 204 Total Protein 5.8 L Albumin 3.0 L Globulin 2.8 Albumin/Globulin Ratio 1.1 Triglycerides 77 Procalcitonin 08/24/17 11:55 WBC RBC Hgb Hct MCV MCH MCHC RDW Plt Count MPV Gran % Lymph % (Auto) [place] % (Auto) Eos % (Auto) Baso % (Auto) Gran # Lymph # (Auto) [place] # (Auto) Eos # (Auto) Baso # (Auto) Smear Path Review Sodium Potassium Chloride Carbon Dioxide Anion Gap BUN Creatinine GFR Calculation Glucose Uric Acid Calcium Phosphorus Magnesium Total Bilirubin Direct Bilirubin GGT AST ALT Alkaline Phosphatase Lactate Dehydrogenase Total Protein Albumin Globulin Albumin/Globulin Ratio Triglycerides Procalcitonin < 0.10 Medical - DS: A/P - Patient/Caregiver Discharge Instructions Activity: as per physical therapy, increase activity as tolerated Diet: Low Sodium (2gm), Cardiac, Consistent Carbohydrate Additional Instructions: Take Ciprofloxacin and metronidazole for another 5 days. Recommend PCP check CBC and CMP in 1 week. follow-up with EPI ALFONSO in one week Follow-up with PCP in 1-2 weeks go to the emergency room for fever, shortness of breath, abdominal pain, chest pain, or any other acute concerning symptom. Prescriptions: Acetaminophen [Pain Reliever] 1,000 mg PO TIDP PRN #180 tab PRN Reason: Pain amLODIPine [Norvasc] 10 mg PO DAILY #30 tab Ciprofloxacin HCl [Cipro] 500 mg PO BID #10 tab Loperamide HCl [Anti-Diarrheal] 2 mg PO Q4HP PRN #30 cap PRN Reason: Diarrhea Metoprolol Tartrate [Lopressor] 25 mg PO BID #60 tab metroNIDAZOLE [Metronidazole] 500 mg PO TID #15 tab Omeprazole 20 mg PO QAMCC #30 tablet. traMADol HCL [Ultram] 50 mg PO Q4H #60 tab Other Amb Orders: OT Discharge Order Location: Determined By Patient Physical Therapy at Discharge - General Location: Determined By Patient ST Discharge Order Location: Determined By Patient - Follow up Plan Follow up with: Emi Buitrago [Non-Staff] - Epi Alfonso ARNP [Nurse Practitioner] - Disposition: Xfer SNF Prognosis: Fair Rehab Potential: Fair I certify that the patient requires SNF services: Yes Overall status at discharge: patient is progressing back to baseline Medical - DS: Qual - VTE Deep Vein Thrombosis/Pulmonary Embolism Present on Admission: No
[2017-08-25] MEDS ORDERED: INSULIN LISPRO 1 UNIT/0.01 ML UNIT SQ SCH (11:30)
[2017-08-25] MEDS ORDERED: metroNIDAZOLE 500 MG/100 ML BAG IV SCH (14:00)
[2017-08-25] MEDS ORDERED: 0.9 % SODIUM CHLORIDE 10 ML SYRINGE IV SCH (14:00)
--- NOTE | 2017-08-25 14:16 | Surgical Pathology Report ---
HISTOLOGY SPECIMEN MICROSCOPIC DIAGNOSIS SPECIMEN A - SMALL BOWEL, DUODENUM, BIOPSY: -- SMALL BOWEL MUCOSA WITH NO DIAGNOSTIC ALTERATIONS. -- NO SIGNIFICANT VILLOUS ARCHITECTURAL DISTORTION, INTRAEPITHELIAL LYMPHOCYTOSIS, OR GRANULOMAS. -- ALCIAN BLUE/PAS STAIN IS NEGATIVE FOR GASTRIC METAPLASIA (ADEQUATE TECHNICAL CONTROL). SPECIMEN B - ESOPHAGUS, BIOPSY: -- SQUAMOCOLUMNAR GASTROESOPHAGEAL JUNCTION MUCOSA WITH FOCAL EROSION, MODERATE ACUTE AND CHRONIC INFLAMMATION, AND REACTIVE CHANGES. -- PAS STAIN IS POSITIVE FOR RARE FUNGAL ORGANISMS (ADEQUATE TECHNICAL CONTROL). -- ALCIAN BLUE STAIN IS NEGATIVE FOR INTESTINAL METAPLASIA (ADEQUATE TECHNICAL CONTROL). -- RARE SQUAMOUS INTRAEPITHELIAL EOSINOPHILS (UP TO 2 IN A HPF). (SEH:arlene) CLINICAL HISTORY Abnormal CT; abdominal pain. PROCEDURAL IMPRESSION Duodenal ulcer; Schatzki's; false-true CT; (?) celiac. GROSS DESCRIPTION Specimen A: Received in formalin labeled duodenum biopsy, are five pink-domínguez tissue fragments 0.2 to 0.5 cm. Totally submitted - one cassette. Specimen B: Received in formalin labeled esophageal biopsy, are three brannon-domínguez to pink-domínguez tissue fragments 0.3 to 0.5 cm. Totally submitted - one cassette. (GAS:sln) Electronically Signed by: Ivonne Thakkar D.O.
[2017-08-25] MEDS ORDERED: METOPROLOL TARTRATE 25 MG TABLET PO SCH (21:00)
[2017-08-26] MEDS ORDERED: PANTOPRAZOLE 40 MG PACKET PO SCH (07:30)
[2017-08-26] MEDS ORDERED: LEVOTHYROXINE 100 MCG TABLET PO SCH (07:30)
[2017-08-26] MEDS ORDERED: ALLOPURINOL 100 MG TABLET PO SCH (09:00)
[2017-08-26] MEDS ORDERED: cefTRIAXone 1 GM VIAL IV SCH (09:00)
[2017-08-26] MEDS ORDERED: CYANOCOBALAMIN (VITAMIN B-12) 500 MCG TABLET PO SCH (09:00)
[2017-08-26] MEDS ORDERED: LISINOPRIL 20 MG TABLET PO SCH (09:00)
[2017-08-26] MEDS ORDERED: SERTRALINE 50 MG TABLET PO SCH (09:00)
[2017-08-26] MEDS ORDERED: amLODIPine 10 MG TABLET PO SCH (09:00)
[2017-08-26] MEDS ORDERED: ENOXAPARIN 40 MG/0.4 ML SYRINGE SQ SCH (09:00)
[2017-08-26] MEDS ORDERED: ASPIRIN 325 MG ENTERIC COATED TABLET PO SCH (09:00)
--- NOTE | 2017-08-30 12:35 | EGD Procedure Note ---
EGD Procedure Notes - Procedure Information Patient information: Note initiated : 08/30/17 at 12:32 pm Service Date: 08/24/17 Patient: Amada Herron 81 y/o F admitted on 08/17/17 for Altered LOC. Pre-op diagnosis general: Abnormal CT. Diarrhea. Post-Op Diagnosis general: Duodenal ulcer. Schatzki's ring. False positive CT. Procedure Narrative: The procedure, alternatives and risks were discussed with the patient and the patient's questions were answered. With intravenous sedation, the Olympus video pediatric colonoscope was introduced into the esophagus. The esophagus, stomach, duodenum and jejunum were examined sequentially. At the esophagogastric junction, there was an inflamed Schatzki's ring narrowing the lumen significantly. This was biopsied. The gastric mucosa, antrum, pyloric ring appeared normal. Antral biopsy was taken for SILVINO test. There was a small duodenal ulcer in the bulb. Small bowel biopsies were taken to check for malabsorption. Over 1 meter of jejunum was examined and was entirely normal. A guidewire was inserted into the scope. The scope was then withdrawn, leaving the guidewire in place. The esophagus was dilated with an Bur[place]ian bougie 51 Croatian. Assessment: Duodenal ulcer. Schatzki's ring. False positive CT.
== END 2017-08-25 12:35 | DRG 92 ==
LOC: ED 02:10 → ICU 02:10 → MEDSUR 08-25 08:40
PROVIDERS: ADMIT Internal Medicine; ATTEND Internal Medicine

== ENCOUNTER 2017-12-06 10:26 | Inpatient (IN) ==
[2017-12-06] MEDS ORDERED: traMADol 50 MG TABLET PO ONE ×2 (11:14→15:59)
--- NOTE | 2017-12-06 11:24 | XRay Report ---
CLINICAL INFORMATION: Trauma COMPARISON: None. FINDINGS: The heart is mildly enlarged. Mediastinum is accentuated by rotation and within normal limits. Lungs are clear. No effusions and no evidence of pneumothorax. Left ribs are unremarkable. IMPRESSION: Negative Interpreted and Authenticated by: Fly Rivera 12/06/17
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
[2017-12-06] MEDS ORDERED: ACETAMINOPHEN 325 MG TABLET PO ONE (11:30)
[2017-12-06 13:00] LABS: Basophils # (Auto) 0 K/mcL (0.0-0.3); Basophils % (Auto) 0 % (0.0-2.0); Eosinophils # (Auto) 0.2 K/mcL (0.0-0.7); Eosinophils % (Auto) 1.7 % (0.0-7.0); Granulocytes % (Auto) 74.7 % (38.0-78.0); Lymphocytes # (Auto) 2.1 K/mcL (1.5-4.8); Lymphocytes % (Auto) 17.5 % (15.5-49.0); Mean Corpuscular HGB Conc 31.6 g/dL (31.0-36.0); Mean Corpuscular Hemoglobin 26.2 pg (26.0-34.0); Monocytes # (Auto) 0.7 K/mcL (0.1-0.9); Monocytes % (Auto) 6.1 % (1.0-12.0); Platelet Count 275 K/mcL (140-440); Red Cell Distribution Width 20.1 % (11.5-14.5)
[2017-12-06 13:41] LABS: ALT/SGPT 12 U/l (0-40); Albumin 3.8 gm/dL (3.2-5.2); Alkaline Phosphatase 102 U/L (39-117); Blood Urea Nitrogen 30 mg/dl (8-23)
[2017-12-06 13:41] LABS: Appearance,Urine HAZY; Bacteria,Urine 0 /hpf (0); Bilirubin,Urine NEG (NEG); Color,Urine YELLOW; Glucose,Urine (UA) NEGATIVE (NEG); Leukocyte Esterase,Urine NEG /uL (NEG); Mucus,Urine FEW /hpf (0); Protein,Urine 100 mg/dL (NEG); Specific Gravity,Urine 1.015 (1.000-1.035); Urine Blood NEG mg/dL (<0.03); Urine Hyaline Cast 12 /lpf (0-2); Urine RBC 1 /hpf (0-1); Urine Squamous Epithelial Cell 4 /hpf (0-4); Urine WBC 1 /hpf (0-4); Urobilinogen,Urine NEG (NEG)
[2017-12-06 13:55] LABS: proBNP 433.1 pg/ml (0-450)
[2017-12-06] MEDS ORDERED: oxyCODONE HCL 5 MG TABLET PO PRN (16:33)
[2017-12-06] MEDS ORDERED: LOPERAMIDE 2 MG CAPSULE PO PRN (16:42)
[2017-12-06] MEDS ORDERED: NALOXONE HCL 0.4 MG/ML VIAL IV PRN (16:42)
[2017-12-06] MEDS ORDERED: ONDANSETRON ODT 4 MG TABLET SL PRN (16:42)
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
--- NOTE | 2017-12-06 19:18 | Emergency Department Note ---
ED Note Addendum Note Addendum: agree with dx and rx and need to admitt. awaiting results of v/Q scan. Dr Cabrera contacted
[2017-12-06] MEDS: IPRATROPIUM/ALBUTEROL 3 ML AMPUL.NEB NEB SCH (19:24)
[2017-12-06] MEDS: METOPROLOL TARTRATE 25 MG TABLET PO SCH (20:09)
[2017-12-06] MEDS: NYSTATIN POWDER BOTTLE 15GM TOPICAL SCH (20:09)
[2017-12-06] MEDS: ENOXAPARIN 100 MG/ML SYRINGE SQ SCH (20:09)
[2017-12-06] MEDS: oxyCODONE HCL 5 MG TABLET PO PRN (20:11)
[2017-12-06] MEDS: ACETAMINOPHEN 325 MG TABLET PO PRN (21:55)
[2017-12-06] MEDS: 0.9 % SODIUM CHLORIDE 10 ML SYRINGE IV SCH (22:04)
[2017-12-07] MEDS: oxyCODONE HCL 5 MG TABLET PO PRN ×4 (00:10→21:19)
[2017-12-07] MEDS: traMADol 50 MG TABLET PO PRN ×3 (00:10→19:54)
[2017-12-07] MEDS: IPRATROPIUM/ALBUTEROL 3 ML AMPUL.NEB NEB SCH ×4 (00:38→19:30)
[2017-12-07 05:40] LABS: Basophils # (Auto) 0 K/mcL (0.0-0.3); Basophils % (Auto) 0.4 % (0.0-2.0); Eosinophils # (Auto) 0.2 K/mcL (0.0-0.7); Eosinophils % (Auto) 2.1 % (0.0-7.0); Granulocytes % (Auto) 67.3 % (38.0-78.0); Lymphocytes # (Auto) 2.3 K/mcL (1.5-4.8); Lymphocytes % (Auto) 22.3 % (15.5-49.0); Mean Cell Volume 83.9 fL (80.0-100.0); Mean Corpuscular Hemoglobin 26.8 pg (26.0-34.0); Monocytes # (Auto) 0.8 K/mcL (0.1-0.9); Monocytes % (Auto) 7.9 % (1.0-12.0); Platelet Count 241 K/mcL (140-440); RBC 3.87 M/mcL (4.00-5.20); Red Cell Distribution Width 20.2 % (11.5-14.5)
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
[2017-12-07] MEDS: 0.9 % SODIUM CHLORIDE 10 ML SYRINGE IV SCH ×3 (06:03→23:36)
[2017-12-07 06:36] LABS: ALT/SGPT 9 U/l (0-40); Albumin 3.5 gm/dL (3.2-5.2); Albumin/Globulin Ratio 0.9 (1.0-2.3); Alkaline Phosphatase 88 U/L (39-117); Bilirubin,Direct < 0.2 mg/dL (0.0-0.3); Blood Urea Nitrogen 26 mg/dl (8-23); Gamma Glutamyl Transpeptidase 14 U/L (5-36); Uric Acid 5.5 mg/dL (2.5-8.0)
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
[2017-12-07] MEDS ORDERED: OMEPRAZOLE 20 MG CAPSULE PO SCH (07:30)
[2017-12-07] MEDS: ENOXAPARIN 100 MG/ML SYRINGE SQ SCH (08:54)
[2017-12-07] MEDS: METOPROLOL TARTRATE 25 MG TABLET PO SCH ×2 (08:54→21:19)
[2017-12-07] MEDS: ACETAMINOPHEN 325 MG TABLET PO PRN (08:55)
[2017-12-07] MEDS ORDERED: ALLOPURINOL 100 MG TABLET PO SCH (09:00)
[2017-12-07] MEDS ORDERED: amLODIPine 10 MG TABLET PO SCH (09:00)
[2017-12-07] MEDS ORDERED: LISINOPRIL 20 MG TABLET PO SCH (09:00)
[2017-12-07] MEDS ORDERED: SERTRALINE 50 MG TABLET PO SCH (09:00)
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
[2017-12-07] MEDS ORDERED: ACETAMINOPHEN 325 MG TABLET PO PRN (14:51)
[2017-12-07] MEDS ORDERED: NALOXONE HCL 0.4 MG/ML VIAL IV PRN (14:51)
[2017-12-07] MEDS ORDERED: ONDANSETRON ODT 4 MG TABLET SL PRN (14:51)
[2017-12-07] MEDS ORDERED: LOPERAMIDE 2 MG CAPSULE PO PRN (14:51)
[2017-12-07] MEDS: NYSTATIN POWDER BOTTLE 15GM TOPICAL SCH ×3 (16:11→21:26)
[2017-12-07] MEDS: SIMETHICONE 80 MG TAB.CHEW CHEWED SCH ×2 (19:29→21:24)
[2017-12-07] MEDS ORDERED: HEPARIN 5,000 UNIT/ML VIAL SQ SCH (21:00)
[2017-12-07] MEDS: HEPARIN 5,000 UNIT/ML VIAL SQ SCH (21:19)
[2017-12-08] MEDS: traMADol 50 MG TABLET PO PRN ×5 (00:27→23:29)
[2017-12-08] MEDS: IPRATROPIUM/ALBUTEROL 3 ML AMPUL.NEB NEB SCH ×4 (01:03→18:42)
[2017-12-08] MEDS: oxyCODONE HCL 5 MG TABLET PO PRN ×4 (04:56→20:12)
[2017-12-08] MEDS: OMEPRAZOLE 20 MG CAPSULE PO SCH (06:50)
[2017-12-08] MEDS: 0.9 % SODIUM CHLORIDE 10 ML SYRINGE IV SCH ×3 (06:51→23:30)
[2017-12-08 07:03] LABS: Basophils # (Auto) 0 K/mcL (0.0-0.3); Basophils % (Auto) 0.4 % (0.0-2.0); Eosinophils # (Auto) 0.3 K/mcL (0.0-0.7); Eosinophils % (Auto) 2.9 % (0.0-7.0); Granulocytes % (Auto) 61.5 % (38.0-78.0); Lymphocytes # (Auto) 2.8 K/mcL (1.5-4.8); Lymphocytes % (Auto) 26.4 % (15.5-49.0); Mean Corpuscular HGB Conc 31.7 g/dL (31.0-36.0); Mean Corpuscular Hemoglobin 26.9 pg (26.0-34.0); Monocytes # (Auto) 0.9 K/mcL (0.1-0.9); Monocytes % (Auto) 8.8 % (1.0-12.0); Platelet Count 243 K/mcL (140-440); RBC 3.85 M/mcL (4.00-5.20); Red Cell Distribution Width 20.3 % (11.5-14.5)
[2017-12-08 07:28] LABS: ALT/SGPT 9 U/l (0-40); Albumin 3.2 gm/dL (3.2-5.2); Albumin/Globulin Ratio 0.9 (1.0-2.3); Alkaline Phosphatase 80 U/L (39-117); Bilirubin,Direct < 0.2 mg/dL (0.0-0.3); Blood Urea Nitrogen 24 mg/dl (8-23); Gamma Glutamyl Transpeptidase 14 U/L (5-36); Uric Acid 5.3 mg/dL (2.5-8.0)
[2017-12-08] MEDS: SERTRALINE 50 MG TABLET PO SCH (09:10)
[2017-12-08] MEDS: METOPROLOL TARTRATE 25 MG TABLET PO SCH ×2 (09:10→20:12)
[2017-12-08] MEDS: SIMETHICONE 80 MG TAB.CHEW CHEWED SCH ×4 (09:10→20:12)
[2017-12-08] MEDS: HEPARIN 5,000 UNIT/ML VIAL SQ SCH ×2 (09:10→20:13)
[2017-12-08] MEDS: LISINOPRIL 20 MG TABLET PO SCH (09:11)
[2017-12-08] MEDS: amLODIPine 10 MG TABLET PO SCH (09:11)
[2017-12-08] MEDS: ALLOPURINOL 100 MG TABLET PO SCH (09:11)
[2017-12-08] MEDS: NYSTATIN POWDER BOTTLE 15GM TOPICAL SCH ×2 (10:21→21:21)
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
[2017-12-09] MEDS: IPRATROPIUM/ALBUTEROL 3 ML AMPUL.NEB NEB SCH ×2 (02:38→07:16)
[2017-12-09] MEDS: oxyCODONE HCL 5 MG TABLET PO PRN ×2 (02:39→08:11)
[2017-12-09] MEDS: 0.9 % SODIUM CHLORIDE 10 ML SYRINGE IV SCH (06:00)
[2017-12-09] MEDS: OMEPRAZOLE 20 MG CAPSULE PO SCH (06:57)
[2017-12-09 07:40] LABS: Basophils # (Auto) 0 K/mcL (0.0-0.3); Basophils % (Auto) 0.3 % (0.0-2.0); Eosinophils # (Auto) 0.4 K/mcL (0.0-0.7); Eosinophils % (Auto) 4.1 % (0.0-7.0); Granulocytes % (Auto) 61.8 % (38.0-78.0); Lymphocytes # (Auto) 2.8 K/mcL (1.5-4.8); Lymphocytes % (Auto) 25.9 % (15.5-49.0); Mean Cell Volume 85.1 fL (80.0-100.0); Mean Corpuscular HGB Conc 32.6 g/dL (31.0-36.0); Mean Corpuscular Hemoglobin 27.7 pg (26.0-34.0); Monocytes # (Auto) 0.9 K/mcL (0.1-0.9); Monocytes % (Auto) 7.9 % (1.0-12.0); Platelet Count 240 K/mcL (140-440); RBC 3.76 M/mcL (4.00-5.20); Red Cell Distribution Width 20.4 % (11.5-14.5)
[2017-12-09 08:06] LABS: ALT/SGPT 8 U/l (0-40); Albumin 3.2 gm/dL (3.2-5.2); Albumin/Globulin Ratio 0.9 (1.0-2.3); Alkaline Phosphatase 77 U/L (39-117); Bilirubin,Direct < 0.2 mg/dL (0.0-0.3); Blood Urea Nitrogen 28 mg/dl (8-23); Gamma Glutamyl Transpeptidase 13 U/L (5-36); Uric Acid 5.3 mg/dL (2.5-8.0)
[2017-12-09] MEDS: SIMETHICONE 80 MG TAB.CHEW CHEWED SCH (08:10)
[2017-12-09] MEDS: LISINOPRIL 20 MG TABLET PO SCH (08:11)
[2017-12-09] MEDS: SERTRALINE 50 MG TABLET PO SCH (08:11)
[2017-12-09] MEDS: amLODIPine 10 MG TABLET PO SCH (08:11)
[2017-12-09] MEDS: ALLOPURINOL 100 MG TABLET PO SCH (08:11)
[2017-12-09] MEDS: METOPROLOL TARTRATE 25 MG TABLET PO SCH (08:11)
[2017-12-09] MEDS: HEPARIN 5,000 UNIT/ML VIAL SQ SCH (08:12)
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
[2017-12-09] MEDS: traMADol 50 MG TABLET PO PRN (09:29)
== END 2017-12-09 10:00 | DRG 204 ==
LOC: ED 10:26 → ICU 10:26 → OBSVTOIN 16:45 → ICU 23:16 → MEDSUR 12-08 06:08
PROVIDERS: ADMIT Internal Medicine; ATTEND Internal Medicine